=== PATIENT | male | born 1975 | race Caucasian/White ===

== ENCOUNTER 2022-02-24 13:33 | Outpatient (REF) | payer MEDICARE, MEDICAID, SELFPAY ==
--- NOTE | ~2022-02-24 | XR_ITS ---
EXAMINATION: X-RAY THORACIC SPINE X-RAY LUMBAR SPINE CLINICAL INFORMATION: Pain. COMPARISON: None TECHNIQUE: 3 views of the thoracic spine. 4 views of the lumbar spine. FINDINGS: Thoracic spine: No acute compression deformity or subluxation. Mild to moderate multilevel disc height loss and anterior marginal osteophytes are noted. The included portions of the cardiomediastinum, lungs and ribs are within normal limits. Lumbar spine: No acute compression deformity or malalignment. Mild to moderate disc height loss and facet arthropathy at L4-L5 and L5-S1 leading to some degree of neural foraminal encroachment and central canal narrowing. SI joints are symmetric. No significant paraspinal soft tissue finding. XR/XR thoracic spine 2V IMPRESSION: 1. No acute compression deformity or subluxation of the thoracic or lumbar spine. 2. Mild to moderate thoracic spondylosis. 3. Mild to moderate lumbar spondylosis at L4-L5 and L5-S1.
--- NOTE | ~2022-02-24 | XR_ITS ---
EXAMINATION: X-RAY THORACIC SPINE X-RAY LUMBAR SPINE CLINICAL INFORMATION: Pain. COMPARISON: None TECHNIQUE: 3 views of the thoracic spine. 4 views of the lumbar spine. FINDINGS: Thoracic spine: No acute compression deformity or subluxation. Mild to moderate multilevel disc height loss and anterior marginal osteophytes are noted. The included portions of the cardiomediastinum, lungs and ribs are within normal limits. Lumbar spine: No acute compression deformity or malalignment. Mild to moderate disc height loss and facet arthropathy at L4-L5 and L5-S1 leading to some degree of neural foraminal encroachment and central canal narrowing. SI joints are symmetric. No significant paraspinal soft tissue finding. XR/XR lumbar spine 4V min IMPRESSION: 1. No acute compression deformity or subluxation of the thoracic or lumbar spine. 2. Mild to moderate thoracic spondylosis. 3. Mild to moderate lumbar spondylosis at L4-L5 and L5-S1.
== END 2022-02-24 13:34 | disposition home or self-care (01) ==
LOC: HO.XRAY 13:33
PROVIDERS: PCP Internal Medicine; Visit Provider Internal Medicine
DX: M54.50 Low back pain, unspecified (principal)
CPT/HCPCS: 72070; 72110

== ENCOUNTER 2023-01-03 08:39 | Outpatient (REF) | payer MEDICARE, MEDICAID, SELFPAY ==
[2023-01-03 14:14] LABS: MANUAL DIFF FLAG NO
[2023-01-03 14:22] LABS: Basophils Absolute Auto 0.1 X10*3/uL (0.0-0.2); Basophils Percent Auto 0.6 % (0-2); Eosinophils Absolute Auto 0.1 X10*3/uL (0.0-0.4); Eosinophils Percent Auto 0.9 % (0-4); Hematocrit 49.8 % (42.0-52.0); Hemoglobin 16.6 g/dl (14.0-18.0); Imm Gran Abs Auto 0.06 X10*3/uL (0.00-0.03); Imm Gran Pct Auto 0.6 % (0.0-0.4); Lymphocytes Absolute Auto 2.7 X10*3/uL (1.2-4.9); Lymphocytes Percent Auto 26.8 % (20-40); Mean Corpuscular HGB Conc 33.3 g/dl (31.0-36.0); Mean Corpuscular Hemoglobin 30.5 pg (27.0-33.0); Mean Corpuscular Volume 91.5 fL (80.0-98.0); Mean Platelet Volume 10.7 fL (9.4-12.4); Monocytes Absolute Auto 0.6 X10*3/uL (0.1-1.2); Monocytes Percent Auto 6.2 % (2-11); Neutrophils Absolute Auto 6.4 x10*3/uL (2.0-8.3); Neutrophils Percent Auto 64.9 % (45-73); Platelet Count 326 X10*3/uL (160-400); Red Blood Count 5.44 X10*6/uL (4.60-5.80); Red Cell Distribution Width 12.7 % (11.0-16.0); White Blood Count 9.9 X10*3/uL (4.8-10.8)
[2023-01-03 14:56] LABS: Alanine Aminotransferase 27 U/L (0-40); Albumin Level 4.4 g/dL (3.5-5.0); Alkaline Phosphatase 65 U/L (39-117); Anion Gap 12 (12-20); Aspartate Amino Transferase 24 U/L (5-37); Bilirubin Direct 0.2 mg/dL (0.0-0.5); Bilirubin Total 0.3 mg/dL (0.0-1.0); Blood Urea Nitrogen 14 mg/dL (9-16); Calcium 9.7 mg/dL (8.4-10.2); Carbon Dioxide 23 mmol/L (22-29); Chloride 107 mmol/L (96-108); Cholesterol 213 mg/dL (<200); Estimated Glomerular Filt Rate > 60; Glucose Fasting 89 mg/dL (60-99); HDL Cholesterol 26 mg/dL (>40); Potassium 3.9 mmol/L (3.3-5.1); Sodium 138 mmol/L (135-145); Total Protein 7.5 g/dL (6.5-8.0); Triglycerides 422 mg/dL (<150)
== END 2023-01-03 08:40 | disposition home or self-care (01) ==
LOC: CF 08:39
PROVIDERS: Visit Provider Internal Medicine
DX: E78.1 Pure hyperglyceridemia (principal); R79.89 Other specified abnormal findings of blood chemistry
CPT/HCPCS: 36415; 80048; 80061; 80076; 85025

== ENCOUNTER 2023-11-18 14:34 | Outpatient (REF) | payer MEDICARE, MEDICAID, SELFPAY ==
[2023-11-18 18:04] LABS: MANUAL DIFF FLAG NO
[2023-11-18 18:15] LABS: Basophils Absolute Auto 0.1 X10*3/uL (0.0-0.2); Basophils Percent Auto 0.6 % (0-2); Eosinophils Absolute Auto 0.1 X10*3/uL (0.0-0.4); Hematocrit 49.9 % (42.0-52.0); Hemoglobin 16.9 g/dl (14.0-18.0); Imm Gran Abs Auto 0.06 X10*3/uL (0.00-0.03); Imm Gran Pct Auto 0.6 % (0.0-0.4); Lymphocytes Absolute Auto 3.5 X10*3/uL (1.2-4.9); Lymphocytes Percent Auto 34.7 % (20-40); Mean Corpuscular HGB Conc 33.9 g/dl (31.0-36.0); Mean Corpuscular Hemoglobin 30.8 pg (27.0-33.0); Mean Corpuscular Volume 90.9 fL (80.0-98.0); Mean Platelet Volume 10.8 fL (9.4-12.4); Monocytes Absolute Auto 0.6 X10*3/uL (0.1-1.2); Monocytes Percent Auto 5.6 % (2-11); Neutrophils Absolute Auto 5.8 x10*3/uL (2.0-8.3); Neutrophils Percent Auto 57.5 % (45-73); Platelet Count 281 X10*3/uL (160-400); Red Blood Count 5.49 X10*6/uL (4.60-5.80); Red Cell Distribution Width 12.8 % (11.0-16.0); White Blood Count 10.1 X10*3/uL (4.8-10.8)
[2023-11-18 18:35] LABS: Alanine Aminotransferase 26 U/L (0-40); Albumin Level 4.4 g/dL (3.5-5.0); Alkaline Phosphatase 55 U/L (39-117); Anion Gap 13 (12-20); Aspartate Amino Transferase 14 U/L (5-37); Bilirubin Total 0.5 mg/dL (0.0-1.0); Blood Urea Nitrogen 13 mg/dL (9-16); Calcium 9.9 mg/dL (8.4-10.2); Carbon Dioxide 27 mmol/L (22-29); Chloride 106 mmol/L (96-108); Cholesterol 218 mg/dL (<200); Estimated Glomerular Filt Rate > 60; Glucose Random 92 mg/dL (60-115); HDL Cholesterol 34 mg/dL (>40); LDL Cholesterol Calculated 150 mg/dL (<100); Potassium 3.9 mmol/L (3.3-5.1); Sodium 142 mmol/L (135-145); Total Protein 7.1 g/dL (6.5-8.0); Triglycerides 170 mg/dL (<150)
[2023-11-18 18:49] LABS: TSH reflex Free T4 3.69 uIU/mL (0.32-4.0); Vitamin D 25-OH Total 21.9 ng/mL (>30)
== END 2023-11-18 14:35 | disposition home or self-care (01) ==
LOC: HO.CHCLDS 14:34
PROVIDERS: Visit Provider Internal Medicine
DX: Z00.00 Encounter for general adult medical examination without abnormal findings (principal); E78.1 Pure hyperglyceridemia; E55.9 Vitamin D deficiency, unspecified
CPT/HCPCS: 36415; 80053; 80061; 82306; 84443; 85025

== ENCOUNTER 2024-07-22 12:57 | Emergency (ER) | payer MEDICARE, MEDICAID, SELFPAY ==
--- NOTE | ~2024-07-22 | XR_ITS ---
CLINICAL HISTORY: palpitations Chest Radiographs, 2 views Comparison: None Findings: No cardiomegaly. Normal mediastinal contours. No pneumothorax. Peripheral opacity in the right mid and lower lung zones on the PA view is attributed to artifact. No pleural effusion. Normal upper abdomen. No acute fracture. Impression: No acute pathology. This document has been electronically signed by: Nella Conway MD on 07/22/2024 14:21:48
[2024-07-22 13:04] VITALS: BP 127/76; BP 127/82; PULSE 102; PULSE 99; RESP 14; TEMP 36.6; O2SAT 95; O2SAT 97; BMI 34.4
--- NOTE | 2024-07-22 13:20 | ECG_ITS ---
Test Reason : palpitations Blood Pressure : */* mmHG Vent. Rate : 93 BPM Atrial Rate : 93 BPM P-R Int : 124 ms QRS Dur : 80 ms QT Int : 364 ms P-R-T Axes : 56 38 27 degrees QTcB Int : 452 ms Normal sinus rhythm Nonspecific T wave abnormality Abnormal ECG No previous ECGs available Referred By: Jessica Landin Electronically Signed By: Donny Beckham
--- NOTE | 2024-07-22 13:24 | ED.ARRPALP ---
HPI - Arrhythmia/Palpitations General Chief Complaint: Arrhythmia/Palpitations Stated Complaint: PALPITATIONS,FROM [facility] PER EMS Time Seen by Provider: 07/22/24 13:01 Source: patient and EMS Mode of arrival: EMS Limitations: no limitations History of Present Illness ED Provider: Jessica Landin APRN HPI narrative: 48 yo Year old male [facility] here with complaints of left-sided chest pain described as pressure for 1 hour. Patient reports this occurred while he was at rest. Nonexertional. There is no associated vomiting, diaphoresis, shortness of breath, headache, dizziness. Patient denies any leg swelling or leg pain. No recent travel. No sick contacts. No recent hospitalizations. No history of DVT or PE. Related Data Allergies Allergy/AdvReac Type Severity Reaction Status Date / Time clozapine [From CLOZARIL] Allergy Unknown UNK Verified 07/22/24 13:07 Review of Systems Review of Systems: Yes all other systems are reviewed and are negative Constitutional: Constitutional: Reports no additional constitutional complaints, Denies body ache(s), Denies chills, Denies fever(s), Denies headache(s) and Denies weakness Eyes: Eyes: Reports no additional eye complaints and Denies change in vision ENT: Reports system reviewed and no additional complaints, except as documented, Denies dizziness, Denies headache(s), Denies nasal congestion, Denies nasal discharge and Denies neck pain Cardiovascular: Cardiovascular: Reports no additional cardiovascular complaints, Reports chest pain, Denies leg edema and Denies dyspnea Respiratory: Respiratory: Reports no additional respiratory complaints, Denies cough and Denies dyspnea Gastrointestinal: Gastrointestinal: Reports no additional gastrointestinal complaints, Denies abdominal pain, Denies diarrhea, Denies nausea and Denies vomiting Genitourinary: Genitourinary: Denies urinary incontinence Musculoskeletal: Musculoskeletal: Reports no additional musculoskeletal complaints, Denies back pain, Denies arthralgias, Denies joint swelling, Denies neck pain, Denies numbness and Denies tingling Integumentary/Breasts: Skin/Breast: Reports system reviewed and no additional complaints, except as docu and Denies rash Neurologic: Reports system reviewed and no additional complaints, except as documented, Denies Abnormal speech present, Denies dizziness, Denies headache(s), Denies numbness, Denies tingling and Denies weakness PMFSH Past Medical History Attestation statement: The following information was validated with the patient. Source: old records reviewed and nursing notes reviewed Social History Social History Smoked in Last 30 Days: Yes Advance Directives: No Advance Directives Information Provided: Yes Do you have a plan to hurt others: No Plan Physical Exam Vital Signs: Vital Signs: Last Vital Signs Temp 97.9 F 07/22/24 13:04 Pulse 90 07/22/24 16:00 Resp 11 L 07/22/24 16:00 BP 112/76 07/22/24 16:00 Pulse Ox 96 07/22/24 16:00 O2 Del Method Room Air 07/22/24 16:00 BMI result Body Mass Index 34.4 Const: General: cooperative, healthy appearing, comfortable and no acute distress Orientation/consciousness: patient oriented x3 Limitations: no limitations HEENT: Head: Yes normal to inspection Ears: hearing grossly normal bilaterally General nose exam: Normal external nose present Face and sinus: Yes normal facial exam Mouth: Normal oral and palatal mucosa present Throat: Yes posterior oropharynx normal Eyes: General: appearance normal, both eyes and all related structures Pupils: Equal, round and reactive pupils present Neck: Neck: Yes normal visual inspection Chest: Chest palpation & inspection: normal inspection of the chest Resp: Effort & Inspection: normal respiratory effort Auscultation: clear to auscultation bilaterally Cardio: Rate: regular rate Rhythm: regular rhythm Peripheral pulses: Peripheral pulses 2+ throughout GI: Inspection: Yes normal to inspection Palpation (GI): Soft to palpation and nontender Auscultation: normal bowel sounds Back/Spine/Pelvis: Thoracic/Lumbar Spine: thoracic and lumbar spine normal to inspection Skin: General skin exam: no rashes or lesions noted Neuro: General: patient oriented x3, no focal motor deficits and normal sensation to monofilament Cranial nerves: Yes Equal, round and reactive pupils present Cognition (Neuro): normal cognition Speech: No Abnormal speech present Gait exam (Neuro): Normal gait present Motor exam (neuro): 5/5 motor strength present throughout Extrem: General: Yes normal to inspection, Yes no pedal edema and Yes no calf tenderness Course Course Course Narrative: labs are unremarkable. EKG is nonischemic. Chest x-ray shows no acute finding. Patient will be discharged home with recommendations to follow up with outpatient providers. Reviewed worrisome signs and symptoms of when to return to the emergency room. Comfortable plan for discharge home. Medications Administered Discontinued Medications Generic Name Dose Route Start Last Admin Trade Name Jose Luis PRN Reason Stop Dose Admin Acetaminophen 975 mg 07/22/24 13:34 07/22/24 13:51 Acetaminophen 325 Mg Tablet PO 07/22/24 13:35 975 mg ONCE ONE Administration Medical Decision Making Medical Decision Making MDM Narrative: 48 yo Year old male from a [facility] here with complaints of left-sided chest pain described as pressure for 1 hour. Patient reports this occurred while he was at rest. Nonexertional. There is no associated vomiting, diaphoresis, shortness of breath, headache, dizziness. Patient denies any leg swelling or leg pain. No recent travel. No sick contacts. No recent hospitalizations. No history of DVT or PE. exam is benign vitals are stable will obtain labs, EKG, chest x-ray Differential Diagnosis Differential Diagnoses: The differential diagnosis associated with the presentation includes ACS- less likely with nonischemic EKG and 2- troponins with a history of present illness is atypical for ACS less likely PE with perc 0 less likely dissection with gradual onset of symptoms Admission/Observation Consideration of admission/observation: Escalation of care including admission/observation considered See course of care Lab Data MDM Lab Attestation statement: I reviewed the patient's lab results. 07/22/24 14:16 07/22/24 14:16 Labs: Lab Results 07/22/24 07/22/24 Range/Units 14:16 16:38 WBC 13.2 H (4.8-10.8) X10*3/uL RBC 4.99 (4.60-5.80) X10*6/uL Hgb 15.6 (14.0-18.0) g/dl Hct 43.4 (42.0-52.0) % MCV 87.0 (80.0-98.0) fL MCH 31.3 (27.0-33.0) pg MCHC 35.9 (31.0-36.0) g/dl RDW 12.9 (11.0-16.0) % Plt Count 360 D (160-400) X10*3/uL MPV 9.6 (9.4-12.4) fL Immature Gran % (Auto) 0.6 H (0.0-0.4) % Neut % (Auto) 65.9 (45-73) % Lymph % (Auto) 26.8 (20-40) % [place] % (Auto) 5.6 (2-11) % Eos % (Auto) 0.6 (0-4) % Baso % (Auto) 0.5 (0-2) % Lymph # (Auto) 3.5 (1.2-4.9) X10*3/uL [place] # (Auto) 0.7 (0.1-1.2) X10*3/uL Eos # (Auto) 0.1 (0.0-0.4) X10*3/uL Baso # (Auto) 0.1 (0.0-0.2) X10*3/uL Abs Immat Gran (auto) 0.08 H (0.00-0.03) X10*3/uL Absolute Neuts (auto) 8.7 H (2.0-8.3) x10*3/uL Absolute Nucleated RBC 0.000 (0.0-0.012) X10*3/uL Nucleated RBC % (auto) 0.0 (0.0-0.2) /100WBC Sodium 138 (135-145) mmol/L Potassium 4.0 (3.3-5.1) mmol/L Chloride 106 (96-108) mmol/L Carbon Dioxide 25 (22-29) mmol/L Anion Gap 11 L (12-20) BUN 18 H (9-16) mg/dL Creatinine 0.81 (0.5-1.4) mg/dL Estim Creat Clear Calc 137.6 Estimated GFR > 60 Random Glucose 93 (60-115) mg/dL Calcium 9.4 (8.4-10.2) mg/dL Magnesium 2.1 (1.6-2.6) mg/dL Total Bilirubin 0.5 (0.0-1.0) mg/dL Direct Bilirubin 0.2 (0.0-0.5) mg/dL AST 23 (5-37) U/L ALT 31 (0-40) U/L Alkaline Phosphatase 63 (39-117) U/L Troponin I High Sens < 2.7 < 2.7 (<3.5-35.0) ng/L Total Protein 7.2 (6.5-8.0) g/dL Albumin 4.4 (3.5-5.0) g/dL TSH 4.18 H (0.32-4.0) uIU/mL Free T4 0.97 (0.71-1.85) ng/dL Independent Interpretation I performed an independent interpretation of an: EKG and Plain X-Ray Interpretation: I independently reviewed the x-ray and agree with the radiology report I independently reviewed the EKG which shows normal sinus rhythm with a rate of 93, normal PA, normal QRS normal QT Radiology Impression Discussion of test interpretation with radiology: I have reviewed the radiologist's reading. Radiologist Impression: [address] [address] XRay Report Signed Patient: Paulino Hernandez MR#: [id number] : 1975 Acct:[id number] Age/Sex: 48 / M ADM Date: 07/22/24 Loc: .ED Attending Dr: Ordering Physician: Jessica Landin NP Date of Service: 07/22/24 Procedure(s): XR chest 2V Accession Number(s): [id number] cc: Nata Ferrer MD; Jessica Landin NP~ CLINICAL HISTORY: palpitations Chest Radiographs, 2 views Comparison: None Findings: No cardiomegaly. Normal mediastinal contours. No pneumothorax. Peripheral opacity in the right mid and lower lung zones on the PA view is attributed to artifact. No pleural effusion. Normal upper abdomen. No acute fracture. Impression: No acute pathology. Independent Historian Clinical information obtained from an independent historian. History obtained from or confirmed by: EMS Discharge Plan Discharge Clinical Impression: Chest pain Patient Disposition: Home, Self-Care Instructions: Chest Pain (ED) Additional Instructions: The patient can have Motrin or Tylenol for pain as needed He should follow up outpatient with his providers Referrals: Nata Ferrer MD [Primary Care Provider] - 1 week Print Language: Slovak
--- OUTSIDE RECORDS SUMMARY | 2024-07-22 13:43 | XMS_ITS | Encounter Summary ---
Author Organization [employer] Address [address] [address] [place] [address] Care Team Providers Care Entry Level Finance Name Role Phone Nata Ferrer MD Primary Care Provider [phone] Encounter Details Date Type Department Care Team (Late st Contact Info) Description 07/21/2022 Orders Only [facility] MED & PEDS [address] [place], [place] [phone] Nata Ferrer MD [address] [place] [address] Other chronic pain Social History Tobacco Use Types Packs/Day Years Used Date Smoking Tobacco: Every Day Cigarettes Smokeless Tobacco: Never Sex and Gender Information Value Date Recorded Sex Assigned at Male 02/15/2022 10:36 AM EDT Legal Sex Male 10:36 AM EDT Gender Identity Male 02/15/2022 10:36 AM EDT Sexual Orientation Straight 02/15/2022 10 :36 AM EDT documented as of this encounter Plan of Treatment Not on file documented as of this encounter Procedures Procedure Name Priority Date/Time Associated Diagnosis Comments BASIC METABOLIC PANEL, FASTING Routine 01/03/2023 8:42 AM EDT Other chronic pain documented in this encounter Results * Basic Metabolic Panel, Fasting (01/03/2023 8:42 AM EDT) Sodium 138 135 - 145 mmol/L [facility] Potassium 3.9 3.3 - 5.1 mmol/L [facility] Chloride 107 96 - 108 mmol/L [facility] Carbon Dioxide 23 22 - 29 mmol/L [facility] Anion Gap 12 12 - 20 [facility] Urea Nitrogen (BUN) 14 9 - 16 mg/dL [facility] Creatinine, Serum 0.88 0.5 - 1.4 mg/dL [facility] Estimated Glomerular Filt Rate >60 [facility] Comment:NOTE: For -Am erican individuals, multiply the result by 1.210.Chronic Kidney Disease: Estimated GFR < 60 mL/min/[id number] Kidney Disease: Estimated GFR < 15 mL/min/1.73m2 Glucose Fasting 89 60 - 99 mg/dL [facility] Calcium 9.7 8.4 - 10.2 mg/dL [facility] 01/03/2023 8:42 AM EDT 01/03/2023 2:10 PM EDT Nata Ferrer MD LAB BLOOD ORDERABLES Final Result Performing Organization Address City/State/[facility] Co de Phone Number [facility] [address] [place] [address] [phone] documented in this encounter Visit Diagnoses Diagnosis Other chronic pain documented in this encounter Care Teams Entry Level Finance Relationship Specialty Start Date End Date Nata Ferrer MD [address] [place] [address] PCP - General Internal Medicine 02/07/19 documented as of this encounter
--- OUTSIDE RECORDS SUMMARY | 2024-07-22 13:43 | XMS_ITS | Encounter Summary ---
Author Organization [employer] [facility] Address [address] [facility] 7 [place] [address] Care Team Providers Care Transmission And Coordination Engineer Name Role Phone Nata Ferrer MD Primary Care Provider [phone] Reason for Visit * Reason Comments Med Refill Encounter Details Date Type Department Care Team ([facility] st Contact Info) Description 12/16/2022 Refill [facility] PED[facility] [address] [place] [address] Nata Ferrer MD [address] [place] [address] Other chronic pain; Rib pain on right side Social History Tobacco Use Types Packs/Day Years Used Date Smoking Tobacco: Every Day Cigarettes Smokeless Tobacco: Never Depression Answer Date Recorded Patient Health Questionnaire-9 Score 0 11/04/2022 Depression Answer Date Recorded Patient Health Questionnaire-2 Score 0 11/04/2022 Sex and Gender Information Value Date Recorded Sex Assigned at Male 02/15/2022 10:36 AM EDT Legal Sex Male 10:36 AM EDT Gender Identity Male 02/15/2022 10:36 AM EDT Sexual Orientation Straight 02/15/2022 10 :36 AM EDT documented as of this encounter Plan of Treatment Not on file documented as of this encounter Visit Diagnoses Diagnosis Other chronic pain Rib pain on right side documented in this encounter Additional Health Concerns Assessment Noted Time PHQ-9 Depression Total Score: 0 11/05/19 23 2:09 PM EDT documented as of this encounter Care Teams Transmission And Coordination Engineer Relationship Specialty Start Date End Date Nata Ferrer MD [address] [place] [address] PCP - General Internal Medicine 02/07/19 documented as of this encounter
--- OUTSIDE RECORDS SUMMARY | 2024-07-22 13:43 | XMS_ITS | Encounter Summary ---
Author Organization [employer] Address [address] [facility] [address] [place] [address] Care Team Providers Care Assistant Auditor Name Role Phone Nata Ferrer MD Primary Care Provider [phone] Encounter Details Date Type Department Care Team (Late st Contact Info) Description 11/21/2023 Orders Only [facility]ED[facility] [address] [place] [address] Nata Ferrer MD [address] [place] [address] Vitamin D deficiency (Primary Dx) Social History Tobacco Use Types Packs/Day Years Used Date Smoking Tobacco: Every Day Cigarettes Smokeless Tobacco: Never Depression Answer Date Recorded Patient Health Questionnaire-9 Score 7 11/18/2023 Patient Health Questionnaire-9 Score 7 11/18/2023 Last PHQ-9: Questionnaire Data Not on file 0 11/18/2023 Housing Stability Answer Date Recorded What is your housing situation today? I have mare pinon 11/18/[address] you li ve. Do you have problems with any of the following? None of the above 11/18/2023 Food Insecurity Answer Date Recorded Within the past 12 months, y ou worried that your food would run out before you got money to buy more: Never True 2023 Within the past 12 months,th e food you bought just didn't last and you didn't have enough money to get more: Sometimes True 11/18/2023 Transportation Answer Date Recorded In the past 12 months, has l ack of transportation kept you from medical appts, meetings, work or from getting things needed for daily living? No 02/06/2023 Utilities Answer Date Recorded In the past 12 months, has t he electric, gas, oil or water company threatened to shut off services in your home? No 11/18/2023 Depression Answer Date Recorded Patient Health Questionnaire-2 Score 3 11/18/2023 Sex and Gender Information Value Date Recorded Sex Assigned at Male 02/15/2022 10:36 AM EDT Legal Sex Male 10:36 AM EDT Gender Identity Male 02/15/2022 10:36 AM EDT Sexual Orientation Straight 02/15/2022 10 :36 AM EDT documented as of this encounter Plan of Treatment Not on file documented as of this encounter Visit Diagnoses Diagnosis Vitamin D deficiency- Primary documented in this encounter Additional Health Concerns Assessment Noted Time PHQ-9 Depression Total Score: 7 11/18/19 24 2:11 PM EDT documented as of this encounter Care Teams Assistant Auditor Relationship Specialty Start Date End Date Nata Ferrer MD [address] [place] [id number] PCP - General Internal Medicine 02/07/19 documented as of this encounter
--- OUTSIDE RECORDS SUMMARY | 2024-07-22 13:43 | XMS_ITS | Clinical Summary ---
Author Organization [facility] ity Address [address] [place] [address] Care Team Providers Care Chrome Cleaner Name Role Phone Unavailable Primary Care Provider Unavailabl e Social History Tobacco Use Types Packs/Day Years Used Date Smoking Tobacco: Never Assessed Sex and Gender Information Value Date Recorded Sex Assigned at Not on file Legal Sex Male 4:02 PM EST Gender Identity Not on file Sexual Orientation Not on file Plan of Treatment Health Maintenance Due Date Last Done Comments DTaP,Tdap,and Td Vaccines (1 - Tdap) 10/11/1994 Hepatitis B Vaccines (1 of 3 - 19+ 3-dose series) 10/11/1994 Cholesterol Screening (Lipid Panel) 03/17/2022 Colorectal Cancer Screening: Colonoscopy 03/17/2022 Depression Screening 03/17/2022 HIV Screening 03/17/2022 Hepatitis C Screening 03/17/2022 Social Influencers of Health Screening 03/17/2022 COVID-19 Vaccine (2023-2 5 season) 2023 Influenza Vaccine (#1) 2023 HIB Vaccines Aged Out No longer eligi ble based on patient's age to complete this topic HPV Vaccines Aged Out No longer eligi ble based on patient's age to complete this topic Hepatitis A Vaccines Aged Out No long er eligible based on patient's age to complete this topic IPV Vaccines Aged Out No longer eligi ble based on patient's age to complete this topic MMR Vaccines Aged Out No longer eligi ble based on patient's age to complete this topic Meningococcal ACWY Vaccine Aged Out N o longer eligible based on patient's age to complete this topic Meningococcal B Vacine Aged Out No lo nger eligible based on patient's age to complete this topic Pneumococcal Vaccine: Pediat rics (0 to 5 Years) and At-Risk Patients (6 to 64 Years) Aged Out No longer eligible b ased on patient's age to complete this topic RSV Immunization Patients Un adilson 20 months Aged Out No longer eligible b ased on patient's age to complete this topic Varicella Vaccines Aged Out No longer eligible based on patient's age to complete this topic Advance Directives Documents on File Type Date Recorded Patient Development Analyst Expl anation Health Care Decision (hx) 11/29/2019 AD KENNEY DIRECTIVE Health Care Decision (hx) 11/19/2019 AD KENNEY DIRECTIVE
--- OUTSIDE RECORDS SUMMARY | 2024-07-22 13:43 | XMS_ITS | Encounter Summary ---
Author Organization [employer] Address [address] [address] [place] [address] Care Team Providers Care President [place] [employer] Name Role Phone Nata Ferrer MD Primary Care Provider [phone] Reason for Visit * Reason Onset Date Comments Nurse Triage 07/11/2024 Encounter Details Date Type Department Care Team (Late st Contact Info) Description 07/11/[address] [facility] MEDICINE [address] [place] [address] Nata Ferrer MD [address] [place] [address] Nurse Triage Social History Tobacco Use Types Packs/Day Years Used Date Smoking Tobacco: Every Day Cigarettes Passive Smoke Exposure: Current Smokeless Tobacco: Never Depression Answer Date Recorded [...] AM EDT documented as of this encounter Miscellaneous Notes * Telephone Encounter - Nichole Harry RN - 07/11/2024 9:58 AM EDT Triage call Pt reports living in a fci. Pt has been having body pain, especially back and legs. Dizziness has caused Pt to fall at times no injury to body or head. Pt also reports fever at times. Pt reports this has been happening for last 2-3 months. Pt is requesting to see provider at [facility].Pt is taking atorvastatin daily. ASK apt today at 220pm in [facility]. Pt agrees with disposition and insurance is verified as active prior to scheduling. Protocol Used: Muscle Aches and Body Pain (Adult) Protocol-Based Disposition: See in Office or Video Visit within 3 Days Video visit not offered Positive Triage Questions: * Moderate pain (e.g., interferes with normal activities) and present > 3 days * Mild or Moderate muscle aches or pain and taking a statin medicine (a lipid or cholesterol lowering drug) * Patient wants to be seen * All higher-acuity triage questions were negative Care Advice Discussed: * Reasons To Call Back - Fever occurs - Pain lasts longer than 7 days - You become worse * Telephone Encounter - Anish Lamb - 07/11/2024 9:33 AM EDT Symptoms: Body Aches, Weakness, Loss of Appetite, Diarrhea Outcome: Schedule an urgent appointment (within 1 hour) or talk to a nurse or provider soon Reason: Getting worse The caller accepted this outcome. Contact [phone] documented in this encounter Plan of Treatment Not on file documented as of this encounter Visit Diagnoses Not on filedocumented in this encounter Additional Health Concerns Assessment Noted Time PHQ-9 Depression Total Score: 7 11/18/19 24 2:11 PM EDT documented as of this encounter Care Teams President [place] Relationship Specialty Start Date End Date Nata Ferrer MD [address] [place] [phone] PCP - General Internal Medicine 02/07/19 documented as of this encounter
--- OUTSIDE RECORDS SUMMARY | 2024-07-22 13:43 | XMS_ITS | Encounter Summary ---
Author Organization [employer] Address 75 [facility] 7t [place] [address] Care Team Providers Care Car Pusher Name Role Phone Nata Ferrer MD Primary Care Provider [phone]- [phone] Encounter Details Date Type Department Care Team (Latest Contact Info) Description 01/04/2023 Orders Only [facility] MED & PEDS [address] [place] [address] Nata Ferrer MD [address] [place] [address] Hypertriglyceridemia (Primary Dx) Social History Tobacco Use Types [...] as of this encounter Visit Diagnoses Diagnosis Hypertriglyceridemia- Primary Pure hyperglyceridemia documented in this encounter Additional Health Concerns Assessment Noted Time PHQ-9 Depression Total Score: 0 11/05/19 23 2:09 PM EDT documented as of this encounter Care Teams Car Pusher Relationship Specialty Start Date End Date Nata Ferrer MD [address] [place], [place] [phone] PCP - General Internal Medicine 02/07/19 documented as of this encounter
--- OUTSIDE RECORDS SUMMARY | 2024-07-22 13:43 | XMS_ITS | Encounter Summary ---
Author Organization [employer] Address 75 [facility] 7 [place] [address] Care Team Providers Care Boiler Tube Blower Name Role Phone Nata Ferrer MD Primary Care Provider [phone]- [phone] Reason for Visit * Reason Comments Med Refill celecoxib (CeleBREX) 200 MG capsule Encounter Details Date Type Department Care Team (Late st Contact Info) Description 09/14/2022 Refill [facility] MED & PEDS [address] [place] [address] Nata Ferrer MD 505 [place] [address] Other chronic pain Social History Tobacco Use [...] encounter Miscellaneous Notes * Telephone Encounter - Tran Russo RN - 09/24/2022 3:19 PM EDT Pt was recently seen at [facility] ED for a fall. Pt was prescribed APAP 500mg and Lidocaine patch. RN called pt for status check. Pt reports pain persist but denies worsening. States APAP and Lidocaine is somewhat effective. ED f/u appt scheduled and pt aware of appt date and time. Pt will like to know if PCP can send a refill request for APAP 500mg and Lidocaine patch to the pharmacy. Advised message will be send to PCP as requested. * Telephone Encounter - Mony Nunez - 09/14/2022 11:41 AM EDT Tc from patient requesting a med refill on medication celecoxib (CeleBREX) [address] Ferrer documented in this encounter Plan of Treatment Not on file documented as of this encounter Visit Diagnoses Diagnosis Other chronic pain documented in this encounter Care Teams Boiler Tube Blower Relationship Specialty Start Date End Date Nata Ferrer MD [address] [place] [id number] PCP - General Internal Medicine 02/07/19 documented as of this encounter
--- OUTSIDE RECORDS SUMMARY | 2024-07-22 13:43 | XMS_ITS | Encounter Summary ---
Author Organization [employer] Address 75 [facility] 7t [place] [address] Care Team Providers Care Awning Craftsperson Name Role Phone Nata Ferrer MD Primary Care Provider [phone]- [phone] Reason for Visit * Reason Onset Date Comments Medication Question 04/06/2023 Encounter Details Date Type Department Care Team ([facility] st Contact Info) Description 04/06/2023 Telephone [facility] MEDICINE [address] [place] [address] Nata Ferrer MD 505 [place] [address] Medication Question Social History Tobacco Use Types Packs/Day Years Used Date Smoking Tobacco: Every Day Cigarettes Smokeless Tobacco: Never Depression Answer Date Recorded Patient Health Questionnaire-9 Score 0 11/04/2022 Housing Stability Answer Date Recorded What is your housing situation today? I have marecarlota pinon 02/06/[address] you li ve. Do you have problems with any of the following? None of the above 02/06/2023 Food Insecurity Answer Date Recorded Within the past 12 months, y ou worried that your food would run out before you got money to buy more: Never True 02/06/2023 Within the past 12 months,th e food you bought just didn't last and you didn't have enough money to get more: Never True Transportation Answer Date Recorded In the past 12 months, has l ack of transportation kept you from medical appts, meetings, work or from getting things needed for daily living? No 02/06/2023 Utilities Answer Date Recorded In the past 12 months, has t he electric, gas, oil or water [employer] threatened to shut off services in your home? No 02/06/2023 Depression Answer Date Recorded Patient Health Questionnaire-2 Score 0 11/04/2022 Sex and Gender Information Value Date Recorded Sex Assigned at Male 02/15/2022 10:36 AM EDT Legal Sex Male 10:36 AM EDT Gender Identity Male 02/15/2022 10:36 AM EDT Sexual Orientation Straight 02/15/2022 10 :36 AM EDT documented as of this encounter Miscellaneous Notes * Telephone Encounter - Bg Calvillo - 04/06/2023 3:03 PM EST Tc from Racehl the RN at the [facility] calling to request a order for to give the patient 1000mg in theafternoon of acetaminophen (Tylenol 8 Hour) for pain documented in this encounter Plan of Treatment Not on file documented as of this encounter Visit Diagnoses Diagnosis Rib pain on right side documented in this encounter Additional Health Concerns Assessment Noted Time PHQ-9 Depression Total Score: 0 11/05/19 2:09 PM EDT documented as of this encounter Care Teams Awning Craftsperson Relationship Specialty Start Date End Date Nata Ferrer MD [address] [place] [phone] PCP - General Internal Medicine 02/07/19 documented as of this encounter
--- OUTSIDE RECORDS SUMMARY | 2024-07-22 13:43 | XMS_ITS | Encounter Summary ---
Author Organization [employer] Address [address] [facility] 7 [place] [address] Care Team Providers Care Line Installer Repairer Name Role Phone Nata Ferrer MD Primary Care Provider [phone]- [phone] Reason for Visit * Reason Onset Date Comments requesting 03/30/2022 Encounter Details Date Type Department Care Team ([facility] st Contact Info) Description 03/30/2022 Telephone [facility] MEDICINE [address] [place] [address] Nata Ferrer MD [address] [place] [address] requesting Social History Tobacco Use Types Packs/Day Years Used Date Smoking Tobacco: Never Assessed Sex and Gender Information Value Date Recorded Sex Assigned at Male 02/15/2022 10:36 AM EDT Legal Sex Male 10:36 AM EDT Gender Identity Male 02/15/2022 10:36 AM EDT Sexual Orientation Straight 02/15/2022 10 :36 AM EDT documented as of this encounter Miscellaneous Notes * Telephone Encounter - Bella Drummond RN - 03/30/2022 1:07 PM EST Please review message below and advise. Thank you. * Telephone Encounter - Angel Heller - 03/30/2022 11:39 AM EST Tc from Karen with [facility] physical therapy. States pt would like in home physical therapy due to nothave transportation Please contact Karen at [phone] documented in this encounter Plan of Treatment Not on file documented as of this encounter Visit Diagnoses Not on filedocumented in this encounter Care Teams Line Installer Repairer Relationship Specialty Start Date End Date Nata Ferrer MD [address] [place] [phone] PCP - General Internal Medicine 02/07/19 documented as of this encounter
--- OUTSIDE RECORDS SUMMARY | 2024-07-22 13:43 | XMS_ITS | Encounter Summary ---
Author Organization [facility] Address [address] [facility] 7 [place] [address] Care Team Providers Care Auto Glass Worker Name Role Phone Nata Ferrer MD Primary Care Provider [phone]- [phone] Reason for Visit * Reason Comments Med Refill Encounter Details Date Type Department Care Team ([facility] st Contact Info) Description 11/16/2022 Refill [facility] MED & PEDS [address] [place] [address] Nata Ferrer MD 505 [place] [address] Rib pain on right side Social History [...] documented as of this encounter Care Teams Auto Glass Worker Relationship Specialty Start Date End Date Nata Ferrer MD 505 [place] [address] PCP - General Internal Medicine 02/07/19 documented as of this encounter
--- OUTSIDE RECORDS SUMMARY | 2024-07-22 13:43 | XMS_ITS | Encounter Summary ---
Author Organization [employer] Address 75 [facility] 7t [place] [address] Care Team Providers Care Live Hanger Name Role Phone Nata Ferrer MD Primary Care Provider [phone] Reason for Visit * Reason Comments Med Refill Encounter Details Date Type Department Care Team ([facility] Contact Info) Description 06/21/2023 Refill [facility] MED & PEDS [address] [place] [address] Nata Ferrer MD 505 [place] [address] Muscle spasm; Other chronic pain Social History Tobacco Use Types Packs/Day Years Used Date Smoking Tobacco: Every Day Cigarettes Smokeless Tobacco: Never Depression Answer Date Recorded Patient Health Questionnaire-9 Score 0 11/04/2022 Housing Stability Answer Date Recorded What is your housing situation today? I have mare pinon 02/06/[address] you [...] as of this encounter Visit Diagnoses Diagnosis Muscle spasm Spasm of muscle Other chronic pain documented in this encounter Additional Health Concerns Assessment Noted Time PHQ-9 Depression Total Score: 0 11/05/19 2:09 PM EDT documented as of this encounter Care Teams Live Hanger Relationship Specialty Start Date End Date Nata Ferrer MD [address] [place] [phone] PCP - General Internal Medicine 02/07/19 documented as of this encounter
--- OUTSIDE RECORDS SUMMARY | 2024-07-22 13:43 | XMS_ITS | Encounter Summary ---
Author Organization [employer] Address 75 [facility] 7t [place] [address] Care Team Providers Care Wellness Spa Manager Name Role Phone Nata Ferrer MD Primary Care Provider [phone]- [phone] Reason for Visit * Reason Onset Date Comments Same day care 06/15/23 06/15/2023 Encounter Details Date Type Department Care Team ([facility] st Contact Info) Description 06/15/2023 Telephone [facility] MEDICINE [address] [place] [address] Nata Ferrer MD 505 [place], [place] [phone] Same day care 06/15/23 Social History Tobacco Use Types Packs/Day Years [...] encounter Miscellaneous Notes * Telephone Encounter - Edilberto Woodard - 06/15/2023 1:52 PM EST Tc from pt called in to cancel today's same day care visit 06/15/23. documented in this encounter Plan of Treatment Not on file documented as of this encounter Visit Diagnoses Not on filedocumented in this encounter Additional Health Concerns Assessment Noted Time PHQ-9 Depression Total Score: 0 11/05/19 2:09 PM EDT documented as of this encounter Care Teams Wellness Spa Manager Relationship Specialty Start Date End Date Nata Ferrer MD [address] [place] [id number] PCP - General Internal Medicine 02/07/19 documented as of this encounter
--- OUTSIDE RECORDS SUMMARY | 2024-07-22 13:43 | XMS_ITS | Encounter Summary ---
Author Organization [employer] Address [address] 7[address] [place] [address] Care Team Providers Care Security Systems Integrator Name Role Phone Nata Ferrer MD Primary Care Provider [phone] Encounter Details Date Type Department Care Team ([facility] st Contact Info) Description 04/12/2023 Orders Only [facility] MED & PEDS [address] [place] [address] Nata Ferrer MD [address] [place] [address] Other chronic pain Social History Tobacco Use [...] documented as of this encounter Care Teams Security Systems Integrator Relationship Specialty Start Date End Date Nata Ferrer MD [address] [place] [phone] PCP - General Internal Medicine 02/07/19 documented as of this encounter
--- OUTSIDE RECORDS SUMMARY | 2024-07-22 13:43 | XMS_ITS | Clinical Summary ---
Author Organization [employer] Address [address] [facility] [address] 7t [place] [address] Care Team Providers Care Health Tech Name Role Phone Nata Ferrer MD Primary Care Provider [phone]- [phone] Allergies No known active allergies Medications clonazePAM (KlonoPIN) 0.5 MG tablet take 1 tablet by oral route 3 times daily Active gabapentin (Neurontin) 800 MG tablet Take 1 tablet by mouth every 8 (eight) hours. Active hydrOXYzine pamoate (Vistaril) 50 MG capsule 04/24/19 23 Active LORazepam (Ativan) 1 MG tablet TAKE 1 TABLET BY MOUTH 3 TIMES A DAY NEEDED ..AT LEAST 6 HRS APART.MAX 3 TABS DAILY 04/13/20 22 Active OLANZapine (ZyPREXA) 10 MG tablet Take 1 tablet by mouth every 8 (eight) hours. Active paliperidone (Invega) 9 MG 24 hr tablet 04/27/19 23 Active Acetaminophen Extra Strength 500 MG tabletIndicati ons:Other chronic pain TAKE 1 TABLET BY MOUTH EVERY 6 HOURS NEEDED FOR MILD PAIN FOR UP TO 23 DAYS. 90 tablet 10/22/19 23 Active lidocaine (Lidoderm) 5 % patchIndicatio ns:Rib pain on right side Apply 1 patch topically in the morning. Remove & discard patch within 12 hours or as directed by . 30 patch 1 11/05/19 23 Active lidocaine (Lidoderm) 5 % patchIndicatio ns:Other chronic pain Apply 1 patch topically in the morning. Remove & discard patch within 12 hours or as directed by . 30 patch 1 04/12/20 23 Active cholecalcifero l (Vitamin D-3) 50 MCG (2000 UT) capsuleIndicat ions:Vitamin D deficiency Take 1 capsule (50 mcg) by mouth Once per day. 30 capsule 11 11/21/19 24 Active atorvastatin (Lipitor) 20 MG tabletIndicati ons:Vitamin D deficiency Take 1 tablet (20 mg) by mouth Once per day. 30 tablet 11 11/21/19 24 025 Active acetaminophen (Tylenol 8 Hour) 650 MG ER tabletIndicati ons:Rib pain on right side TAKE 1 TAB BY MOUTH EVERY 8 HOURS IF NEEDED FOR MILD PAIN FOR UP TO 10 DAYS.DO NOT CRUSH/CHEW/SP LIT 90 tablet 12/20/19 24 Active ibuprofen 400 MG tablet Take 1 tablet (400 mg) by mouth if needed each day for moderate pain. 30 tablet 3 04/26/19 25 Active cyclobenzaprin e (Flexeril) 10 MG tabletIndicati ons:Other chronic back pain Take 1 tablet (10 mg) by mouth 3 times daily for 10 days. 30 tablet 05/11/19 25 Active tiZANidine (Zanaflex) 4 MG tabletIndicati ons:Muscle spasm TAKE 1 TABLET BY MOUTH EVERY 8 HOURS IF NEEDED FOR MUSCLE SPASMS 30 tablet 2 06/19/19 25 Active Acetaminophen Extra Strength 500 MG tabletIndicati ons:Other chronic pain TAKE 2 TABLETS BY MOUTH TWICE A DAY 120 tablet 1 07/10/19 25 Active Acetaminophen Extra Strength 500 MG tabletIndicati ons:Other chronic pain TAKE 2 TABLETS BY MOUTH TWICE A DAY 120 tablet 1 05/08/19 25 025 Discontinued Active Problems Problem Noted Date Diagnosed Date Abnormal liver function tests 05/19/2021 High thyroid stimulating hormone (TSH) level 04/2021 Hypertriglyceridemia 05/19/2021 Vitamin D deficiency 05/19/2021 Viral hepatitis C 02/08/2019 Encounters Date Type Department Care Team Description 07/11/2024 2:20 PM EDT Office Visit [facility] MED & PEDS [address] [place] [address] Delma Rojo MD Myalgia (Primary Dx) 07/11/2024 Travel 07/11/2024 Telephone [facility] MEDICINE [address] [place] [address] Nata Ferrer MD Nurse Triage 07/08/2024 Refill [facility] MEDICINE [address] [place] [address] Nata Ferrer MD Other chronic pain 06/29/2024 Telephone [facility] MEDICINE [address] [place] [address] Nata Ferrer MD Nurse Triage 06/29/2024 Population Health Risk Score [facility] () Department [address] [place] [phone] Provider, Population Health Generic 06/26/2024 Telephone [facility] MED & PEDS [address] [place] [address] Nata Ferrer MD Nurse Triage 06/17/2024 Refill [facility] MED & PEDS [address] [place] [address] Nata Ferrer MD Muscle spasm 05/11/2024 11:30 AM EST Office Visit [facility] MED & PEDS [address] [place] [address] Delma Rojo MD Other chronic back pain (Primary Dx) 05/11/2024 Travel 05/10/2024 Telephone [facility] MED & PEDS [address] [place] [address] Nata Ferrer MD Nurse Triage 05/05/2024 Refill [facility] MEDICINE [address] [place] [address] Nata Ferrer MD Other chronic pain 04/26/2024 1:20 PM EST Office Visit [facility] MED & PEDS [address] [place] [address] Ema Ponce MD Chest wall pain (Primary Dx) 04/26/2024 Travel 04/25/2024 Telephone [facility] MEDICINE [address] [place] [address] Nata Ferrer MD Nurse Triage 04/24/2024 Telephone [facility] MED & PEDS [address] [place] [address] Nata Ferrer MD Medication Question from Last 3 Months Immunizations Name Administration Dates Next Due Pneumococcal Conjugate PCV 20 11/18/2023 Social History Tobacco Use Types Packs/Day Years Used Date Smoking Tobacco: Every Day Cigarettes Passive Smoke Exposure: Current Smokeless Tobacco: Never Tobacco Cessation:Ready to Q uit: Not Asked; Counseling Given: Not Answered Depression Answer Date Recorded Patient Health Questionnaire-9 [...] Orientation Straight 02/15/2022 10 :36 AM EDT Last Filed Vital Signs Vital Sign Reading Time Taken Comments Blood Pressure 120/78 07/11/2024 2:41 PM EDT Pulse 105 07/11/2024 2:41 PM EDT Temperature 36.7 ??C (98.1 ??F) 07/11/2024 2:41 PM ED T Respiratory Rate 18 07/11/2024 2:41 PM EDT Oxygen Saturation 96% 07/11/2024 2:41 PM EDT Inhaled Oxygen Concentration - - Weight 125 kg (275 lb) 07/11/2024 2:41 PM EDT Height 177.8 cm (5' 10 ) 07/11/2024 2:41 PM EDT Body Mass Index 39.46 07/11/2024 2:41 PM EDT Plan of Treatment Health Maintenance Due Date Last Done Comments CT Colonography 1975 Colonoscopy 1975 Colorectal Cancer Screening 1975 FIT DNA/Cologuard 1975 FIT 1975 FOBT 1975 Sigmoidoscopy 1975 Alcohol/Substance Use Screening 1987 Family Planning (PISQ) 10/11/1990 SDOH Screening 05/05/2023 05/05/2022 COVID-19 Vaccine (2023-2 5 season) 2023 04/16/2021, 06/25/2020, 06/04/2020 Influenza Vaccine (#1) 2023 DTaP/Tdap/Td Vaccines (1 - Tdap) 11/17/2024 Postponed from 10/11 (Patient Refused) Depression Screening 11/17/2024 11/18/2023, 11/18/2023 Hepatitis A Vaccines (1 of 2 - Risk 2-dose series) 11/17/2024 Postponed from (Patient Refused) Hepatitis B Vaccines (1 of 3 - 19+ 3-dose series) 11/17/2024 Postponed from 09/17 (Patient Refused) Tobacco Screening 05/11/2025 05/11/2024 Zoster Vaccines (1 of 2) 10/11/2025 Lipid Panel 11/17/2028 11/18/2023, 01/03/2023, 05/18/2021 RSV Patients and Patients Aged 60 years or older (1 - 1-dose 75+ series) 10/11/2050 HIV Screening Completed 05/28/2021 Pneumococcal Vaccine: Pediatrics (0 to 5 Years) and At-Risk Patients (6 to 49) Years) Completed 11/18/2023 HIB Vaccines Aged Out No longer eligi ble based on patient's age to complete this topic HPV Vaccines Aged Out No longer eligi ble based on patient's age to complete this topic IPV Vaccines Aged Out No longer eligi ble based on patient's age to complete this topic Meningococcal Vaccine Aged Out No shaheen rimma eligible based on patient's age to complete this topic RSV under 20 months Aged Out No longe r eligible based on patient's age to complete this topic Rotavirus Vaccines Aged Out No longer eligible based on patient's age to complete this topic Procedures Procedure Name Priority Date/Time Associated Diagnosis Comments POCT RAPID COVID ANTIGEN Routine 07/11/2024 3:03 PM EDT Myalgia POCT INFLUENZA B (ID NOW RAPID MOLECULAR) Routine 07/11/2024 3:02 PM EDT Myalgia POCT INFLUENZA A (ID NOW RAPID MOLECULAR) Routine 07/11/2024 3:02 PM EDT Myalgia LIPID PANEL, STANDARD Routine 11/18/2023 2:36 PM EDT Annual physical exam Hypertriglyceridemi a HIV 1/2 ANTIGEN/ANTIBODY, FOURTH GENERATION W/RFL Routine 05/28/2021 9:02 AM EST from Last 3 Months or Most Recently Relevant to Health Maintenance Results * POCT Rapid COVID Ag (07/11/2024 3:03 PM EDT) Rapid COVID Ag Negative QC Media Lot # Comment:[id number] Lot# Expiration Date Comment:10/26/2025 Swab 07/11/2024 3:03 PM EDT Delma Rojo MD POINT OF CARE TEST ENTER/EDIT OR DERABLES Final Result * Influenza B (ID NOW Rapid Molecular) (07/11/2024 3:02 PM EDT) Influenza B Negative Negative, Indeterminate [facility] QC Media Lot # [facility] Comment:[id number] Lot# Expiration Date [facility] Comment:11/15/2024 Swab 07/11/2024 3:02 PM EDT Delma Rojo MD POINT OF CARE TEST ENTER/EDIT OR DERABLES Final Result Performing Organization Address City/[facility]/ZIP Co de Phone Number [facility] [address] [place] [address] [phone] * Influenza A (ID NOW Rapid Molecular) (07/11/2024 3:02 PM EDT) Influenza A Negative Negative, Indeterminate [facility] QC Media Lot # [facility] Comment:[id number] Lot# Expiration Date [facility] Comment:11/15/2024 Swab 07/11/2024 3:02 PM EDT Delma Rojo MD POINT OF CARE TEST ENTER/EDIT OR DERABLES Final Result Performing Organization Address [facility] Co de Phone Number [facility] [address] [place] [address] [phone] * (ABNORMAL) Lipid Panel, Standard (11/18/2023 2:36 PM EDT) Triglycerides 170(H) <150 mg/dL [facility] Comment:Desirable Triglyceri de: less than 150 mg/dLBorderline High Triglyceride 150-199 mg/dLHigh Triglyceride: 200-499 mg/dLVery High Triglyceride: greater than or equal to 5OO mg/dL Cholesterol 218(H) <200 mg/dL [facility] Comment:Desirable Cholestero l: less than 200 mg/dLBorderline High Cholesterol: 200-239 mg/dLHigh Cholesterol: greater than 239 mg/dL LDL Cholesterol Calculated 150(H) <100 mg/dL [facility] Comment:Desirable LDL: less than 100 mg/dLNear Optimal/Above Optimal LDL: 110- 129 mg/dLBorderline High LDL: 130-159 mg/dLHigh LDL: 160-189 mg/dLVery High LDL: greater than or equal to 190 mg/dL HDL Cholesterol 34(L) >40 mg/dL [facility] Comment:Desirable HDL: great er than 40 mg/dL Note: This HDL assay may give artificially low results in patients with liver disease. Blood Venous blood specimen / Unknown 11/18/2023 2:36 PM EDT 11/18/2023 6:00 PM EDT us Nata Ferrer MD LAB BLOOD ORDERABLES Final Result [facility] [address] [place] [address] [phone] * HIV 1/2 ANTIGEN/ANTIBODY,FOURTH GENERATION W/RFL (05/28/2021 9:02 AM EST) HIV-1/2 ANTIGEN AND ANTIBODIES, 4TH GENERATION W/ REFLEX NON-REACT [facility] NON-REACT [facility] Comment: HIV-1 antigen and HIV-1/HIV-2 antibodies were not detected. There is no laboratory evidence of HIV infection. ?? PLEASE NOTE: This information has been disclosed to you from records whose confidentiality may be protected by state law. ??If your state requires such protection, then the state law prohibits you from making any further disclosure of the information without the specific written consent of the person to whom it pertains, or as otherwise permitted by law. A general authorization for the release of medical or other information is NOT sufficient for this purpose. ? For additional information please refer to http://education.[employer]/faq/PZJ484 (This link is being provided for informational/ educational purposes only.) ? The performance of this assay has not been clinically validated in patients less than 2 years old. ?? 05/28/2021 9:02 AM EST us Nata Ferrer MD LAB BLOOD ORDERABLES Final Result [facility] [address] from Last 3 Months or Most Recently Relevant to Health Maintenance Insurance MEDICARE [facility] Care Teams Health Tech Relationship Specialty Start Date End Date Nata Ferrer MD [address] [place] [address] PCP - General Internal Medicine 02/07/19
[2024-07-22] MEDS: Acetaminophen 325 MG TABLET 975 MG PO (13:51)
[2024-07-22 14:16] VITALS: BP 117/75; PULSE 955; RESP 14; O2SAT 955
[2024-07-22 14:22] LABS: MANUAL DIFF FLAG NO
[2024-07-22 14:30] LABS: Basophils Absolute Auto 0.1 X10*3/uL (0.0-0.2); Basophils Percent Auto 0.5 % (0-2); Eosinophils Absolute Auto 0.1 X10*3/uL (0.0-0.4); Eosinophils Percent Auto 0.6 % (0-4); Hematocrit 43.4 % (42.0-52.0); Hemoglobin 15.6 g/dl (14.0-18.0); Imm Gran Abs Auto 0.08 X10*3/uL (0.00-0.03); Imm Gran Pct Auto 0.6 % (0.0-0.4); Lymphocytes Absolute Auto 3.5 X10*3/uL (1.2-4.9); Lymphocytes Percent Auto 26.8 % (20-40); Mean Corpuscular HGB Conc 35.9 g/dl (31.0-36.0); Mean Corpuscular Hemoglobin 31.3 pg (27.0-33.0); Mean Platelet Volume 9.6 fL (9.4-12.4); Monocytes Absolute Auto 0.7 X10*3/uL (0.1-1.2); Monocytes Percent Auto 5.6 % (2-11); Neutrophils Absolute Auto 8.7 x10*3/uL (2.0-8.3); Neutrophils Percent Auto 65.9 % (45-73); Platelet Count 360 X10*3/uL (160-400); Red Blood Count 4.99 X10*6/uL (4.60-5.80); Red Cell Distribution Width 12.9 % (11.0-16.0); White Blood Count 13.2 X10*3/uL (4.8-10.8)
[2024-07-22 14:45] LABS: Alanine Aminotransferase 31 U/L (0-40); Albumin Level 4.4 g/dL (3.5-5.0); Alkaline Phosphatase 63 U/L (39-117); Anion Gap 11 (12-20); Aspartate Amino Transferase 23 U/L (5-37); Bilirubin Direct 0.2 mg/dL (0.0-0.5); Bilirubin Total 0.5 mg/dL (0.0-1.0); Blood Urea Nitrogen 18 mg/dL (9-16); Calcium 9.4 mg/dL (8.4-10.2); Carbon Dioxide 25 mmol/L (22-29); Chloride 106 mmol/L (96-108); Creatinine Clr Calc Pharmacy 137.6; Estimated Glomerular Filt Rate > 60; Glucose Random 93 mg/dL (60-115); Magnesium 2.1 mg/dL (1.6-2.6); Sodium 138 mmol/L (135-145); Total Protein 7.2 g/dL (6.5-8.0)
[2024-07-22 14:50] LABS: Troponin-I High Sensitivity < 2.7 ng/L (<3.5-35.0)
[2024-07-22 15:01] LABS: TSH reflex Free T4 4.18 uIU/mL (0.32-4.0)
[2024-07-22 15:32] LABS: Free T4 (Free Thyroxine) 0.97 ng/dL (0.71-1.85)
[2024-07-22 16:00] VITALS: BP 112/76; PULSE 90; RESP 11; O2SAT 96
[2024-07-22 17:13] LABS: Troponin-I High Sensitivity < 2.7 ng/L (<3.5-35.0)
[2024-07-22 17:28] VITALS: BP 124/85; PULSE 92; RESP 17; O2SAT 95
[2024-07-22 18:16] VITALS: BP 124/85; PULSE 92; RESP 17; TEMP 36.7; O2SAT 95
== END 2024-07-22 18:18 | disposition home or self-care (01) ==
PROVIDERS: Nurse Practitioner Family; Emergency Provider Emergency Medicine; PCP Internal Medicine
DX: R07.9 Chest pain, unspecified (principal); Z79.899 Other long term (current) drug therapy
CPT/HCPCS: 36415; 71046; 80048; 80076; 83735; 84439; 84443; 84484; 85025; 93005; 99284; 99285

== ENCOUNTER → 2024-07-22 13:20 | Outpatient (BNV) | payer MEDICARE, MEDICAID, SELFPAY | PROVIDERS: Emergency Provider Emergency Medicine; PCP Internal Medicine; Visit Provider Internal Medicine Cardiovascular Disease | DX: R94.31 Abnormal electrocardiogram [ECG] [EKG] (principal); R00.2 Palpitations | CPT/HCPCS: 93010 ==

== ENCOUNTER → 2024-07-22 13:20 | Outpatient (BNV) | payer MEDICARE, MEDICAID, SELFPAY | PROVIDERS: Emergency Provider Emergency Medicine; PCP Internal Medicine; Visit Provider Radiology Diagnostic Radiology | DX: R00.2 Palpitations (principal) | CPT/HCPCS: 71046 ==

== ENCOUNTER 2024-08-12 11:38 | Emergency (ER) | payer MEDICARE, MEDICAID, SELFPAY ==
--- NOTE | ~2024-08-12 | CT_ITS ---
CLINICAL HISTORY: ABD pain, N D, LQ TTP CT ABDOMEN AND PELVIS WITH CONTRAST Comparison: None Findings: Scattered mild atelectasis and/or scarring. No consolidation. Tiny right pleural effusion and/or pleural thickening. Bilateral renal excretion with no hydronephrosis, significant perinephric edema or abnormal renal cortical enhancement. There is a tiny left renal cyst. No acute abnormalities in the remaining solid organs. The liver is enlarged. The right hepatic lobe measures 20 cm on coronal image 51. The spleen is enlarged measuring 15.5 cm on coronal image 63. No lymphadenopathy. Multiple gallstones. No significant biliary ductal dilatation. No AAA. No bowel obstruction, pneumoperitoneum, or pneumatosis. No ascites organized fluid collection. No significant mesenteric or paracolic edema. Moderate colonic stool burden. Pelvic contents unremarkable. Normal appendix. Multiple old nonunited right rib fractures. IMPRESSION: 1. No obstructive or acute inflammatory changes in the gastrointestinal and genitourinary tracts. 2. Cholelithiasis. 3. Hepatosplenomegaly. This document has been electronically signed by: Zully Fuchs DO on 08/12/2024 15:24:32
[2024-08-12 11:54] VITALS: BP 130/70; BP 139/65; PULSE 72; PULSE 78; RESP 18; TEMP 36.6; O2SAT 98; BMI 85.9
--- NOTE | 2024-08-12 12:15 | ED.GENADULT ---
HPI - General Adult General Chief complaint: General Medical Stated complaint: BODY ACHES Time Seen by Provider: 08/12/24 11:51 Source: patient and EMS Mode of arrival: EMS Limitations: no limitations History of Present Illness ED Provider: Cherie Flannery NP HPI narrative: Patient is a 40-year-old male who presents emergency department via EMS coming from [facility]. Endorses having generalized diffuse abdominal pain in pain to the lateral aspects of the abdomen over the past 3 weeks. He feels that pain is progressively worsening, today was much worse. Has associated nausea but no vomiting. Admitted to having a small amount of diarrhea yesterday as well as sporadically throughout the past few weeks, otherwise very small formed bowel movements of a few days He denies any injury. Denies fevers, chills, chest pain, vomiting, hematemesis, constipation, hematochezia, melena, dysuria, urinary frequency, urinary urgency, urinary hesitancy, hematuria. denies testicular pain/urethral discharge or scrotal swelling. Related Data Previous Rx's ?Medication ?Instructions ?Recorded polyethylene glycol 3350 17 17 g PO DAILY #119 grams 08/12/24 gram/dose oral powder (Miralax) Allergies Allergy/AdvReac Type Severity Reaction Status Date / Time clozapine [From CLOZARIL] Allergy Unknown UNK Verified 08/12/24 11:57 Review of Systems Review of Systems: Yes all other systems are reviewed and are negative PMFSH Past Medical History Attestation statement: The following information was validated with the patient. Source: old records reviewed Social History Social History Smoked in Last 30 Days: Yes Use of substances other than those prescribed or required for medical reasons: Yes Substance Use Type: Marijuana Substance Use Frequency: Daily Last Used Substance: Days (ago) Any prior treatment program specific to substance use: No Advance Directives: No Advance Directives Information Provided: No Do you have a plan to hurt others: No Plan Physical Exam ED Vital Signs: Vital Signs - 24 hr 08/12/24 11:54 08/12/24 12:34 08/12/24 14:35 Temperature 97.8 F 97.8 F 97.2 F Pulse Rate 78 78 68 Respiratory Rate 18 18 18 Blood Pressure 139/65 139/95 H 126/81 Pulse Oximetry 98 98 99 Oxygen Delivery Method Room Air Room Air 08/12/24 14:50 Temperature 97.5 F Pulse Rate 77 Respiratory Rate 13 Blood Pressure 138/80 Pulse Oximetry 98 Oxygen Delivery Method Room Air BMI result Body Mass Index 85.9 Appearance: Alert.?Oriented to person, place and time. No acute distress.?Normal affect.?? Neck: Normal inspection.? Neck supple.?? CVS: Heart sounds normal. Normal heart rate and rhythm.? Pulses normal.?? Respiratory: No respiratory distress.? Lung sounds clear to auscultation bilaterally?? Abdomen: Soft with diffuse tenderness of the abdomen particularly worse in the left lower quadrant. No rebound tenderness at McBurney's point. Negative psoas sign. Negative Rovsing sign. Negative Barros sign. No CVAT. Normoactive bowel sounds. No pulsatile mass.?? Skin: Skin warm and dry.? Normal skin color.? Extremities: No lower extremity edema.? Neuro: Moves all extremities spontaneously. Sensation intact bilaterally. Ambulates with normal steady gait. Course Reevaluation(s) Reevaluation #1: CT of the abdomen and pelvis is without acute pathology, there is however moderate stool burden that is noted, patient received MiraLax and docusate/senna in the emergency department, reviewed outpatient increase fiber intake as well as daily MiraLax and outpatient follow-up with primary care doctor. All questions answered. Stable for discharge, Medications Administered Discontinued Medications Generic Name Dose Route Start Last Admin Trade Name Freq PRN Reason Stop Dose Admin Sodium Chloride 1,000 mls @ 999 mls/hr 08/12/24 12:45 08/12/24 14:47 Ns IV 08/12/24 13:45 Infused .Q1H1M OBDULIA Infusion Iohexol 100 ml 08/12/24 14:11 08/12/24 14:11 Iohexol 350 Mg/Ml 100 Ml Infus..Btl IV 08/12/24 14:12 85 ml ONCE ONE Administration Morphine Sulfate 2 mg 08/12/24 12:34 08/12/24 12:54 Morphine Sulfate 2 Mg/Ml Cartridge IVPUSH 08/12/24 12:35 2 mg ONCE ONE Administration Protocol Ondansetron HCl 4 mg 08/12/24 12:34 08/12/24 12:55 Ondansetron Hcl 4 Mg/2 Ml Vial IVPUSH 08/12/24 12:35 4 mg ONCE ONE Administration Polyethylene Glycol 17 gm 08/12/24 16:27 08/12/24 16:39 Polyethylene Glycol 3350 17 Gm Powd.Pack PO 08/12/24 16:28 17 gm ONCE ONE Administration Senna/Docusate Sodium 1 tab 08/12/24 16:27 08/12/24 16:39 Sennosides/Docusate Sodium Tablet PO 08/12/24 16:28 1 tab NOW STA Administration Medical Decision Making Medical Decision Making [facility] Narrative: Patient is a 40-year-old male past medical history of hepatitis-C, schizophrenia, reported chronic back pain who presents emergency department for evaluation of 3 weeks with a abdominal pain nausea and intermittent diarrhea, progressively worsening and was notably worse today as per HPI. On evaluation he has diffuse abdominal pain and tenderness but notably more profound in the left lower quadrant this coupled with his diarrhea nausea is concerning for potential diverticulitis, has a history of hepatitis-C as well, can not completely exclude acute hepatobiliary etiology, he has no fever pronounced jaundice to suggest acute cholangitis. He denies associated acid reflux, denies history of hematemesis, to suggest PUD, denies alcohol consumption or history of diabetes to favor acute pancreatitis. No notable hernias on examination to suggest strangulation/incarceration. Denies any genitourinary symptoms. Will additionally obtain viral serologies. Patient received 1 L normal saline IV fluid, Zofran 4 mg IV for nausea, morphine 2 mg IV for pain 10/10. At this time he appears overall well, nontoxic, he is afebrile without tachycardia or hypotension. Differential Diagnosis Differential Diagnoses: The differential diagnosis associated with the presentation includes (See narrative above) Admission/Observation Consideration of admission/observation: Escalation of care including admission/observation considered (See narrative above ) Lab Data [facility] Lab Attestation statement: I reviewed the patient's lab results. CBC is without leukocytosis anemia or thrombocytopenia. No electrolyte derangement. No MIREYA. LFTs unremarkable. Lipase normal. Urinalysis without evidence of infection. Viral serologies are negative. 08/12/24 12:53 08/12/24 12:53 Labs: Lab Results 08/12/24 08/12/24 08/12/24 Range/Units 12:07 12:53 15:28 WBC 9.7 (4.8-10.8) X10*3/uL RBC 5.25 (4.60-5.80) X10*6/uL Hgb 16.3 (14.0-18.0) g/dl Hct 48.9 (42.0-52.0) % MCV 93.1 (80.0-98.0) fL MCH 31.0 (27.0-33.0) pg MCHC 33.3 (31.0-36.0) g/dl RDW 13.1 (11.0-16.0) % Plt Count 262 D (160-400) X10*3/uL MPV 9.9 (9.4-12.4) fL Immature Gran % (Auto) 0.6 H (0.0-0.4) % Neut % (Auto) 56.8 (45-73) % Lymph % (Auto) 35.0 (20-40) % [place] % (Auto) 5.9 (2-11) % Eos % (Auto) 1.0 (0-4) % Baso % (Auto) 0.7 (0-2) % Lymph # (Auto) 3.4 (1.2-4.9) X10*3/uL [place] # (Auto) 0.6 (0.1-1.2) X10*3/uL Eos # (Auto) 0.1 (0.0-0.4) X10*3/uL Baso # (Auto) 0.1 (0.0-0.2) X10*3/uL Abs Immat Gran (auto) 0.06 H (0.00-0.03) X10*3/uL Absolute Neuts (auto) 5.5 (2.0-8.3) x10*3/uL Absolute Nucleated RBC 0.000 (0.0-0.012) X10*3/uL Nucleated RBC % (auto) 0.0 (0.0-0.2) /100WBC Sodium 140 (135-145) mmol/L Potassium 4.8 (3.3-5.1) mmol/L Chloride 106 (96-108) mmol/L Carbon Dioxide 24 (22-29) mmol/L Anion Gap 15 (12-20) BUN 16 (9-16) mg/dL Creatinine 0.76 (0.5-1.4) mg/dL Estim Creat Clear Calc 248.8 Estimated GFR > 60 Random Glucose 89 (60-115) mg/dL Calcium 9.6 (8.4-10.2) mg/dL Magnesium 2.1 (1.6-2.6) mg/dL Total Bilirubin 0.4 (0.0-1.0) mg/dL Direct Bilirubin 0.1 (0.0-0.5) mg/dL AST 28 (5-37) U/L ALT 30 (0-40) U/L Alkaline Phosphatase 60 (39-117) U/L Total Protein 7.4 (6.5-8.0) g/dL Albumin 4.4 (3.5-5.0) g/dL Lipase 24 (8-78) U/L Urine Color Yellow Urine Appearance Clear Urine pH 6.5 (5.0-9.0) Ur Specific [place] >= 1.030 H (1.005-1.025) Urine Protein Negative (Neg-Trace) mg/dL Urine Glucose (UA) Negative (Negative) mg/dL Urine Ketones Negative (Negative) mg/dL Urine Blood Negative (Negative) Urine Nitrite Negative (Negative) Ur Leukocyte Esterase Negative (Negative) Influenza Type A (PCR) NEGATIVE (Negative) Influenza Type B (PCR) NEGATIVE (Negative) RSV RNA Qual (PCR) NEGATIVE (Negative) SARS-CoV-2 RNA (RT-PCR) NEGATIVE (Negative) S. pyogenes GrpA NICOLASA Negative (Negative) Independent Interpretation I performed an independent interpretation of an: CT Scan Radiology Impression Discussion of test interpretation with radiology: I have reviewed the radiologist's reading. Radiologist Impression: CT ABDOMEN AND PELVIS WITH CONTRAST Comparison: None Findings: Scattered mild atelectasis and/or scarring. No consolidation. Tiny right pleural effusion and/or pleural thickening. Bilateral renal excretion with no hydronephrosis, significant perinephric edema or abnormal renal cortical enhancement. There is a tiny left renal cyst. No acute abnormalities in the remaining solid organs. The liver is enlarged. The right hepatic lobe measures 20 cm on coronal image 51. The spleen is enlarged measuring 15.5 cm on coronal image 63. No lymphadenopathy. Multiple gallstones. No significant biliary ductal dilatation. No AAA. No bowel obstruction, pneumoperitoneum, or pneumatosis. No ascites organized fluid collection. No significant mesenteric or paracolic edema. Moderate colonic stool burden. Pelvic contents unremarkable. Normal appendix. Multiple old nonunited right rib fractures. IMPRESSION: 1. No obstructive or acute inflammatory changes in the gastrointestinal and genitourinary tracts. 2. Cholelithiasis. 3. Hepatosplenomegaly. External Record Review External record reviewed: Outpatient record Chronic Conditions Patient?s care impacted by: Other (See narrative above) Discharge Plan Discharge Clinical Impression: Constipation Patient Disposition: Home, Self-Care Instructions: Constipation (ED), High Fiber Diet (ED) Additional Instructions: Workup today shows that you have a moderate stool burden within the colon, meaning constipation. You can have some diarrhea when liquid from the stool is moving past the stool stuck within the intestine. I am sending a prescription for MiraLax to the pharmacy to take daily. Try to increase daily fiber intake in the diet. Follow up with primary care doctor Prescriptions: New polyethylene glycol 3350 [Miralax] 17 gram/dose powder 17 g PO DAILY Qty: 119 0RF Referrals: Nata Ferrer MD [Primary Care Provider] - Print Language: [place]ese
--- OUTSIDE RECORDS SUMMARY | 2024-08-12 12:30 | XMS_ITS | Encounter Summary ---
Author Organization [employer] Address [address] [facility] 7t [place] [address] Care Team Providers Care Pellet Press Operator Name Role Phone Nata Ferrer MD Primary Care Provider [phone] Encounter Details Date Type Department Care Team (Latest Contact Info) Description 01/04/2023 Orders Only [facility] [address] [place] [address] Nata Ferrer MD [address] [place] [address] Hypertriglyceridemia (Primary Dx) Social History Tobacco Use [...] documented as of this encounter Care Teams Pellet Press Operator Relationship Specialty Start Date End Date Nata Ferrer MD [address] [place], [place] [phone] PCP - General Internal Medicine 02/07/19 documented as of this encounter
--- OUTSIDE RECORDS SUMMARY | 2024-08-12 12:30 | XMS_ITS | Encounter Summary ---
Author Organization [employer] Address [address] [facility] [address] [place] [address] Care Team Providers Care Print Color Matcher Name Role Phone Nata Ferrer MD Primary Care Provider [phone] Reason for Visit * Reason Onset Date Comments Same day care 06/15/23 06/15/2023 Encounter Details Date Type Department Care Team ([facility] st Contact Info) Description 06/15/2023 Telephone [facility] [address] [place] [address] Nata Ferrer MD [address] [place], [place] [phone] Same day care 06/15/23 Social History Tobacco [...] documented as of this encounter Care Teams Print Color Matcher Relationship Specialty Start Date End Date Nata Ferrer MD [address] [place] [id number] PCP - General Internal Medicine 02/07/19 documented as of this encounter
--- OUTSIDE RECORDS SUMMARY | 2024-08-12 12:30 | XMS_ITS | Encounter Summary ---
Author Organization [employer] Address [address] [facility] [address] [place] [address] Care Team Providers Care Compensation Business Partner Name Role Phone Nata Ferrer MD Primary Care Provider [phone]- [phone] Reason for Visit * Reason Onset Date Comments Nurse Triage 08/09/2024 Encounter Details Date Type Department Care Team (Late st Contact Info) Description 08/09/2024 Telephone [facility] [address] [place] [address] Nata Ferrer MD [address] [place] [address] Nurse Triage Social History Tobacco Use Types [...] encounter Miscellaneous Notes * Telephone Encounter - Nafisa Farris RN - 08/09/2024 2:44 PM EDT called pt to triage, spoke to pt. pt states 2 days duration of low back pain that radiates into both hips. pt reports urinary frequency but drinks a lot of fluids. pt denies blood, history, fever, burning, or other associated symptoms. pt unable to come in today, [facility] and has to havestaff available. advised no available appt to schedule tomorrow, and to call back tomorrow morning for any open appt. advised home care: rest, fluids, monitor temperature, and call back as needed. ptunderstands and agrees to plan. insurance verified. Protocol Used: Back Pain (Adult) Protocol-Based Disposition: See in Office or Video Visit within 3 Days Video visit offer not recorded Positive Triage Question: * Patient wants to be seen * All higher-acuity triage questions were negative Care Advice Discussed: * Reassurance and Education - Back Pain * Cold or Heat * Sleep * Continue Activity * Pain Medicines * Reasons To Call Back - Fever occurs - Numbness or weakness occurs - Loss of control of your bladder or bowel - Severe pain not better after taking pain medicines - Pain begins to shoot into the leg - Pain lasts over 2 weeks - Pain becomes worse - You become worse * Telephone Encounter - Kriss Tracey - 08/09/2024 1:00 PM EDT Symptoms: Back Pain - Not From Injury, Hip Pain - Not From Injury Outcome: Schedule an appointment to be seen within 24 hours Reason: Caller denied all higher acuity questions The caller accepted this outcome. documented in this encounter Plan of Treatment Not on file documented as of this encounter Visit Diagnoses Not on filedocumented in this encounter Additional Health Concerns Assessment Noted Time PHQ-9 Depression Total Score: 7 11/18/19 24 2:11 PM EDT documented as of this encounter Care Teams Compensation Business Partner Relationship Specialty Start Date End Date Nata Ferrer MD [address] [place] [phone] PCP - General Internal Medicine 02/07/19 documented as of this encounter
--- OUTSIDE RECORDS SUMMARY | 2024-08-12 12:30 | XMS_ITS | Encounter Summary ---
Author Organization [employer] Address [address] [facility] [address] [place] [address] Care Team Providers Care Lace Roller Operator Name Role Phone Nata Ferrer MD Primary Care Provider [phone] Reason for Visit * Reason Comments Med Refill Encounter Details Date Type Department Care Team ([facility] st Contact Info) Description 08/10/[address] [facility] [address] [place] [address] Nata Ferrer MD [address] [place], [place] [phone] Rib pain on right side Social History [...] documented as of this encounter Care Teams Lace Roller Operator Relationship Specialty Start Date End Date Nata Ferrer MD [address] [place] [phone] PCP - General Internal Medicine 02/07/19 documented as of this encounter
--- OUTSIDE RECORDS SUMMARY | 2024-08-12 12:30 | XMS_ITS | Encounter Summary ---
Author Organization [employer] [facility] Address [address] [facility] [address] [place] [address] Care Team Providers Care Technical Illustrator Name Role Phone Nata Ferrer MD Primary Care Provider [phone]- [phone] Reason for Visit * Reason Comments Med Refill Encounter Details Date Type Department Care Team ([facility] st Contact Info) Description 12/16/2022 Refill [facility] [address] [place] [address] Nata Ferrer MD [address] [place] [address] Other chronic pain; Rib pain on right [...] documented as of this encounter Care Teams Technical Illustrator Relationship Specialty Start Date End Date Nata Ferrer MD [address] [place] [address] PCP - General Internal Medicine 02/07/19 documented as of this encounter
--- OUTSIDE RECORDS SUMMARY | 2024-08-12 12:30 | XMS_ITS | Encounter Summary ---
Author Organization [employer] Address [address] [facility] [address] [place] [address] Care Team Providers Care Asl Interpreter Name Role Phone Nata Ferrer MD Primary Care Provider [phone] Reason for Visit * Reason Onset Date Comments Medication Question 04/06/2023 Encounter Details Date Type Department Care Team ([facility] st Contact Info) Description 04/06/2023 Telephone [facility] [address] [place] [address] Nata Ferrer MD [address] [place] [address] Medication Question Social History Tobacco Use Types [...] t he electric, gas, oil or water [employer] threatened to shut off services in your [...] - 04/06/2023 3:03 PM EST Tc from Rachel the RN at the [facility] calling to request a order for to [...] documented as of this encounter Care Teams Asl Interpreter Relationship Specialty Start Date End Date Nata Ferrer MD [address] [place] [id number] PCP - General Internal Medicine 02/07/19 documented as of this encounter
--- OUTSIDE RECORDS SUMMARY | 2024-08-12 12:30 | XMS_ITS | Encounter Summary ---
Author Organization [employer] Address [address] [place] [address] Care Team Providers Care Head Baggage Porter Name Role Phone Nata Ferrer MD Primary Care Provider [phone] Encounter Details Date Type Department Care Team ([facility] st Contact Info) Description 04/12/2023 Orders Only [facility] [address] [place] [address] Nata Ferrer MD [address] [place] [address] Other chronic pain Social History Tobacco Use [...] documented as of this encounter Care Teams Head Baggage Porter Relationship Specialty Start Date End Date Nata Ferrer MD [address] [place] [phone] PCP - General Internal Medicine 02/07/19 documented as of this encounter
--- OUTSIDE RECORDS SUMMARY | 2024-08-12 12:30 | XMS_ITS | Clinical Summary ---
Author Organization [facility] Address [address] [place] [address] Care Team Providers Care Tightener Name Role Phone Unavailable Primary Care Provider [...] Vaccine (2023-2 5 season) 2023 Influenza Vaccine (Season Ended) 2024 HIB Vaccines Aged Out No longer eligi [...] age to complete this topic Meningococcal B Vaccine Aged Out No l onger eligible based on patient's age to complete [...] Documents on File Type Date Recorded Patient Cork Sorter Expl anation Health Care Decision (hx) 11/29/2019 AD KENNEY DIRECTIVE Health Care Decision (hx) 11/19/2019 AD KENNEY DIRECTIVE
--- OUTSIDE RECORDS SUMMARY | 2024-08-12 12:30 | XMS_ITS | Encounter Summary ---
Author Organization [employer] Address [address] [facility] 7t [place] [address] Care Team Providers Care Java Spring Developer Name Role Phone Nata Ferrer MD Primary Care Provider [phone] Reason for Visit * Reason Comments Med Refill Encounter Details Date Type Department Care Team ([facility] Contact Info) Description 06/21/2023 Refill [facility] [address] [place] [address] Nata Ferrer MD [address] [place] [address] Muscle spasm; Other chronic pain Social History [...] documented as of this encounter Care Teams Java Spring Developer Relationship Specialty Start Date End Date Nata Ferrer MD [address] [place] [phone] PCP - General Internal Medicine 02/07/19 documented as of this encounter
--- OUTSIDE RECORDS SUMMARY | 2024-08-12 12:30 | XMS_ITS | Clinical Summary ---
Author Organization [employer] Address [address] [facility] [address]t [place] [address] Care Team Providers Care Print Inspector Name Role Phone Nata Ferrer MD Primary Care Provider [phone]- [phone] Allergies No known active allergies Medications clonazePAM (KlonoPIN) 0.5 MG tablet take 1 tablet by oral route 3 times daily Active gabapentin (Neurontin) 800 MG tablet Take 1 tablet by mouth every 8 (eight) hours. Active hydrOXYzine pamoate (Vistaril) 50 MG capsule 3 Active LORazepam (Ativan) 1 MG tablet TAKE 1 TABLET BY MOUTH 3 TIMES A DAY NEEDED ..AT LEAST 6 HRS APART.MAX 3 TABS DAILY 2 Active OLANZapine (ZyPREXA) 10 MG tablet Take 1 tablet by mouth every 8 (eight) hours. Active paliperidone (Invega) 9 MG 24 hr tablet 3 Active Acetaminophen Extra Strength 500 MG tabletIndicatio ns:Other chronic pain TAKE 1 TABLET BY MOUTH EVERY 6 HOURS NEEDED FOR MILD PAIN FOR UP TO 23 DAYS. 90 tablet 3 Active lidocaine (Lidoderm) 5 % patchIndication s:Rib pain on right side Apply 1 patch topically in the morning. Remove & discard patch within 12 hours or as directed by . 30 patch 1 3 Active lidocaine (Lidoderm) 5 % patchIndication s:Other chronic pain Apply 1 patch topically in the morning. Remove & discard patch within 12 hours or as directed by . 30 patch 1 3 Active cholecalciferol (Vitamin D-3) 50 MCG (1999 UT) capsuleIndicati ons:Vitamin D deficiency Take 1 capsule (50 mcg) by mouth Once per day. 30 capsule 11 4 Active atorvastatin (Lipitor) 20 MG tabletIndicatio ns:Vitamin D deficiency Take 1 tablet (20 mg) by mouth Once per day. 30 tablet 11 4 11/21/19 25 Active acetaminophen (Tylenol 8 Hour) 650 MG ER tabletIndicatio ns:Rib pain on right side TAKE 1 TAB BY MOUTH EVERY 8 HOURS IF NEEDED FOR MILD PAIN FOR UP TO 10 DAYS.DO NOT CRUSH/CHEW/SPL IT 90 tablet 4 Active ibuprofen 400 MG tablet Take 1 tablet (400 mg) by mouth if needed each day for moderate pain. 30 tablet 3 5 Active cyclobenzaprine (Flexeril) 10 MG tabletIndicatio ns:Other chronic back pain Take 1 tablet (10 mg) by mouth 3 times daily for 10 days. 30 tablet 5 Active tiZANidine (Zanaflex) 4 MG tabletIndicatio ns:Muscle spasm TAKE 1 TABLET BY MOUTH EVERY 8 HOURS IF NEEDED FOR MUSCLE SPASMS 30 tablet 2 5 Active Acetaminophen Extra Strength 500 MG tabletIndicatio ns:Other chronic pain TAKE 2 TABLETS BY MOUTH TWICE A DAY 120 tablet 1 5 Active Active Problems Problem Noted Date Diagnosed Date Abnormal liver function tests 05/19/2021 High thyroid stimulating hormone (TSH) level 04/2021 Hypertriglyceridemia 05/19/2021 Vitamin D deficiency 05/19/2021 Viral hepatitis C 02/08/2019 Encounters Date Type Department Care Team Description 08/10/[address] [facility] [address] [place] [address] Nata Ferrer MD Rib pain on right side 08/09/[address] [facility] [address] [place] [address] Nata Ferrer MD Nurse Triage 07/30/[address] [facility] & PEDS [address] [place], [place] [phone] Nata Ferrer MD 07/22/2024 Orders Only [facility] External Provider, [facility] 07/11/2024 2:20 PM EDT Office Visit [facility]ED[facility] [address] [place] [address] Delma Rojo MD Myalgia (Primary Dx) 07/11/2024 Travel 07/11/[address] [facility] [address] [place] [address] Nata Ferrer MD Nurse Triage 07/08/[address] [facility] [address] [place] [address] Nata Ferrer MD Other chronic pain 06/29/[address] [facility] [address] [place] [address] Nata Ferrer MD Nurse Triage 06/29/2024 Population Health Risk Score [facility] () Department [address] [place] [phone] Provider, Population Health Generic 06/26/2024 Telephone [facility]ED[facility] [address] [place] [address] Nata Ferrer MD Nurse Triage 06/17/2024 Refill [facility] [address] [place] [address] Nata Ferrer MD Muscle spasm from Last 3 Months Immunizations Name Administration [...] 10/11/1990 SDOH Screening 05/05/2023 05/05/2022 COVID-19 Vaccine (4 - 2023-2 5 season) 2023 04/16/2021, 06/25/2020, 06/04/2020 Influenza [...] Procedure Name Priority Date/Time Associated Diagnosis Comments HIGH SENSITIVITY TROPONIN I Routine 07/22/2024 4:38 PM EDT XR CHEST 2 VIEWS Routine 07/22/2024 2:21 PM EDT POCT RAPID COVID ANTIGEN Routine 07/11/2024 3:03 [...] Recently Relevant to Health Maintenance Results * High Sensitivity Troponin I (07/22/2024 4:38 PM EDT) TROPONIN I HIGH SENSITIVITY <2.7 <3.5 - 35.0 ng/L [facility] Comment:The Saleh high sens itivity Troponin-I results should beused in conjunction with other diagnostic information suchas ECG, clinical observations and information, and patientsymptoms to aid in the diagnosis of OR. 07/22/2024 4:38 PM EDT 07/22/2024 4:40 PM EDT us Generic External Data Provider LAB BLOOD ORDERAB LES Final Result Performing Organization Address City/State/[facility] Co de Phone Number [facility] [address] [place] [phone] * XR Chest 2 Views (07/22/2024 2:21 PM EDT) Anatomical Region Laterality Modality Chest Radiographic Keyla ging 07/22/2024 2:21 PM EDT Narrative 07/22/2024 2:23 PM EDT ? [facility] ?[address] ?[place] [address] ?XRay Report ? Signed ? Patient: Mary,Paulino ?MR#: [id number] ?? 6 ? : 1975 ?Acct:[id number] ? Age/Sex: 48 / M ?ADM Date: 04/06/25 ? Loc: HO.ED ? Attending Dr: ? Ordering Physician: Jessica Landin NP ?? Date of Service: 07/22/24 ?? Procedure(s): XR chest 2V ?? Accession Number(s): [id number] ? cc: Nata Ferrer MD; Jessica Landin NP ? CLINICAL HISTORY: palpitations ? Chest Radiographs, 2 views ? Comparison: None ? Findings: ?? No cardiomegaly. ?? Normal mediastinal contours. ?? No pneumothorax. Peripheral opacity in the right mid and lower lung zones ?? on the PA view is attributed to artifact. No pleural effusion. ?? Normal upper abdomen. ?? No acute fracture. ? Impression: ?? No acute pathology. ? This document has been electronically signed by: Nella Conway MD ?? on 07/22/2024 14:21:48 ? Dictated By: ?Nella Olvera MD ? Signed By: ?<Electronically signed by Nella Olvera MD in OV> ? 07/22/24 1422 ? DD/ 1421 ? TD/TT: 07/22/24 1421 ? Remote Sensing Research Scientist: ? Procedure Note Veronica Bolivar - 07/22/[address] [address] XRay Report Signed Patient: Hi Hernandez#: [id number] 6 : 1975Acct:[id number] Age/Sex: 48 / MADM Date: 07/22/24 Loc: HO.ED Attending Dr: Ordering Physician: Jessica Landin NP Date of Service: 07/22/24 Procedure(s): XR chest 2V Accession Number(s): [id number] cc: Nata Ferrer MD; Jessica Landin NP CLINICAL HISTORY: palpitations Chest Radiographs, 2 views Comparison: None Findings: No cardiomegaly. Normal mediastinal contours. No pneumothorax. Peripheral opacity in the right mid and lower lung zones on the PA view is attributed to artifact. No pleural effusion. Normal upper abdomen. No acute fracture. Impression: No acute pathology. This document has been electronically signed by: Nella Conway MD on 07/22/2024 14:21:48 Dictated By: Nella lOvera MD Signed By: <Electronically signed by Nella Olvera MD in OV> 07/22/24 1422 DD/ 1421 TD/TT: 07/22/24 142 Remote Sensing Research Scientist: Result [facility] External Provider IMG XR PROCEDURES Edited Result - Final * POCT Rapid COVID Ag (07/11/2024 3:03 PM EDT) Rapid COVID Ag Negative QC Media Lot # Comment:[id number] Lot# Expiration Date Comment:10/26/2025 Swab 07/11/2024 3:03 PM EDT Result [facility] Delma Rojo MD POINT OF CARE TEST ENTER/EDIT OR DERABLES Final Result * Influenza B (ID NOW Rapid Molecular) (07/11/2024 3:02 PM EDT) Influenza B Negative Negative, Indeterminate [facility] QC Media Lot # [facility] Comment:[id number] Lot# Expiration Date [facility] Comment:11/15/2024 Swab 07/11/2024 3:02 PM EDT Result [facility] Delma Rojo MD POINT OF CARE TEST ENTER/EDIT OR DERABLES Final Result [facility] [address] [place] [phone] * Influenza A (ID NOW Rapid Molecular) (07/11/2024 3:02 PM EDT) Influenza A Negative Negative, Indeterminate [facility] QC Media Lot # [facility] Comment:[id number] Lot# Expiration Date [facility] Comment:11/15/2024 Swab 07/11/2024 3:02 PM EDT Result [facility] Delma Rojo MD POINT OF CARE TEST ENTER/EDIT OR DERABLES Final Result [facility] [address] [place] [address] [phone] * (ABNORMAL) Lipid Panel, Standard (11/18/2023 2:36 PM EDT) Triglycerides 170(H) <150 mg/dL [facility] Comment:Desirable Triglyceri de: less than 150 mg/dLBorderline High Triglyceride 150-199 mg/dLHigh Triglyceride: 200-499 mg/dLVery High Triglyceride: greater than or equal to 5OO mg/dL Cholesterol 218(H) <200 mg/dL [facility] Comment:Desirable Cholestero l: less than 200 mg/dLBorderline High Cholesterol: 200-239 mg/dLHigh Cholesterol: greater than 239 mg/dL LDL Cholesterol Calculated 150(H) <100 mg/dL [facility] Comment:Desirable LDL: less than 100 mg/dLNear Optimal/Above Optimal LDL: 110- 129 mg/dLBorderline High LDL: 130-159 mg/dLHigh LDL: 160-189 mg/dLVery High LDL: greater than or equal to 190 mg/dL HDL Cholesterol 34(L) >40 mg/dL [facility] Comment:Desirable HDL: great er than 40 mg/dL Note: This HDL assay may give artificially low results in patients with liver disease. Blood Venous blood specimen / Unknown 11/18/2023 2:36 PM EDT 11/18/2023 6:00 PM EDT Nata Ferrer MD LAB BLOOD ORDERABLES Final Result [facility] [address] [place] [address] [phone] * HIV 1/2 ANTIGEN/ANTIBODY,FOURTH GENERATION W/RFL (05/28/2021 9:02 AM EST) HIV-1/2 ANTIGEN AND ANTIBODIES, 4TH GENERATION W/ REFLEX NON-REACT DEEPIKA NON-REACT DEEPIKA [facility] Comment: HIV-1 antigen and HIV-1/HIV-2 [...] ? For additional information please refer to http://education.OnLive/faq/OGS281 (This link is being provided for informational/ educational purposes only.) ? The performance of this assay has not been clinically validated in patients less than 2 years old. ?? 05/28/2021 9:02 AM EST Nata Ferrer MD LAB BLOOD ORDERABLES Final Result Performing Organization Address City/State/[facility] Co de Phone Number [facility] [address] from Last 3 Months or Most Recently Relevant to Health Maintenance Insurance MEDIC[place] [address] [place] [id number] [facility] Care Teams Print Inspector Relationship Specialty Start Date End Date Nata Ferrer MD [address] [place] [address] PCP - General Internal Medicine 02/07/19
--- OUTSIDE RECORDS SUMMARY | 2024-08-12 12:30 | XMS_ITS | Encounter Summary ---
Author Organization [employer] Address [address] [facility] 7t [place] [address] Care Team Providers Care Lap Polisher Name Role Phone Nata Ferrer MD Primary Care Provider [phone]- [phone] Reason for Visit * Reason Onset Date Comments Nurse Triage 07/11/2024 Encounter Details Date Type Department Care Team (Late st Contact Info) Description 07/11/2024 Telephone [facility] [address] [place] [address] Nata Ferrer MD [address] [place] [address] Nurse Triage Social History Tobacco Use Types [...] Triage call Pt reports living in a assisted. Pt has been having body pain, especially back and legs. Dizziness has caused Pt to fall at times no injury to body or head. Pt also reports fever at times. Pt reports this has been happening for last 2-3 months. Pt is requesting to see provider at [facility].Pt is taking atorvastatin daily. ASK apt today at 220pm in [facility]. Pt agrees with disposition and insurance [...] worse The caller accepted this outcome. Contact [phone] documented in this encounter Plan of Treatment Not on file documented as of this encounter Visit Diagnoses Not on filedocumented in this encounter Additional Health Concerns Assessment Noted Time PHQ-9 Depression Total Score: 7 11/18/19 24 2:11 PM EDT documented as of this encounter Care Teams Lap Polisher Relationship Specialty Start Date End Date Nata Ferrer MD [address] [place] [phone] PCP - General Internal Medicine 02/07/19 documented as of this encounter
--- OUTSIDE RECORDS SUMMARY | 2024-08-12 12:30 | XMS_ITS | Encounter Summary ---
Author Organization [employer] Address [address] [facility] 7t [place] [address] Care Team Providers Care Poultry Vaccinator Name Role Phone Nata Ferrer MD Primary Care Provider +1 [phone] Encounter Details Date Type Department Care Team (Late st Contact Info) Description 11/21/2023 Orders Only [facility] & PED[facility] [address] [place] [address] Nata Ferrer MD [address] [place] [address] Vitamin D deficiency (Primary Dx) Social History [...] documented as of this encounter Care Teams Poultry Vaccinator Relationship Specialty Start Date End Date Nata Ferrer MD [address] [place] [address] PCP - General Internal Medicine 02/07/19 documented as of this encounter
--- OUTSIDE RECORDS SUMMARY | 2024-08-12 12:31 | XMS_ITS | Encounter Summary ---
Author Organization [employer] Address [address] [facility] 7 [place] [address] Care Team Providers Care Aluminum Can Collector Name Role Phone Nata Ferrer MD Primary Care Provider +1- [phone] Reason for Visit * Reason Comments Med Refill celecoxib (CeleBREX) 200 MG capsule Encounter Details Date Type Department Care Team (Late st Contact Info) Description 09/14/2022 Refill [facility] [address] [place] [address] Nata Ferrer MD [address] [place] [address] Other chronic pain Social History Tobacco Use [...] PM EDT Pt was recently seen at [facility] ED for a fall. Pt was prescribed [...] pain documented in this encounter Care Teams Aluminum Can Collector Relationship Specialty Start Date End Date Nata Ferrer MD [address] [place] [phone] PCP - General Internal Medicine 02/07/19 documented as of this encounter
--- OUTSIDE RECORDS SUMMARY | 2024-08-12 12:31 | XMS_ITS | Encounter Summary ---
Author Organization [employer] Address 75 [facility] 7t [place] [address] Care Team Providers Care Clinical Nurse Educator Name Role Phone Nata Ferrer MD Primary Care Provider +1 [phone] Encounter Details Date Type Department Care Team (Late st Contact Info) Description 07/21/2022 Orders Only [facility] MED & PEDS [address] [place], [place] [phone] Nata Ferrer MD [address] [place] [address] Other chronic pain Social History Tobacco Use [...] EDT) Sodium 138 135 - 145 mmol/L [facility] Potassium 3.9 3.3 - 5.1 mmol/L [facility] Chloride 107 96 - 108 mmol/L [facility] Carbon Dioxide 23 22 - 29 mmol/L [facility] Anion Gap 12 12 - 20 [facility] Urea Nitrogen (BUN) 14 9 - 16 mg/dL [facility] Creatinine, Serum 0.88 0.5 - 1.4 mg/dL [facility] Estimated Glomerular Filt Rate >60 [facility] Comment:NOTE: For -Am erican individuals, multiply the result by 1.210.Chronic Kidney Disease: Estimated GFR < 60 mL/min/1.14x4Kldgfr Kidney Disease: Estimated GFR < 15 mL/min/1.73m2 Glucose Fasting 89 60 - 99 mg/dL [facility] Calcium 9.7 8.4 - 10.2 mg/dL [facility] 01/03/2023 8:42 AM EDT 01/03/2023 2:10 PM EDT Nata Ferrer MD LAB BLOOD ORDERABLES Final Result Performing Organization Address City/State/[facility] Co de Phone Number [facility] [address] [place] [address] [phone] documented in this encounter Visit Diagnoses Diagnosis Other chronic pain documented in this encounter Care Teams Clinical Nurse Educator Relationship Specialty Start Date End Date Nata Ferrer MD [address] [place] [address] PCP - General Internal Medicine 02/07/19 documented as of this encounter
--- OUTSIDE RECORDS SUMMARY | 2024-08-12 12:31 | XMS_ITS | Encounter Summary ---
Author Organization [employer] Address [address] [facility] [address]t [place] [address] Care Team Providers Care Lead Systems Developer Name Role Phone Nata Ferrer MD Primary Care Provider +1- [phone] Reason for Visit * Reason Onset Date Comments requesting 03/30/2022 Encounter Details Date Type Department Care Team ([facility] st Contact Info) Description 03/30/2022 Telephone [facility] [address] [place] [address] Nata Ferrer MD [address] [place] [address] requesting Social History Tobacco Use Types Packs/Day [...] 11:39 AM EST Tc from Karen with [facility] physical therapy. States pt would like in home physical therapy due to nothave transportation Please contact Karen at [phone] documented in this encounter Plan of Treatment Not on file documented as of this encounter Visit Diagnoses Not on filedocumented in this encounter Care Teams Lead Systems Developer Relationship Specialty Start Date End Date aNta Ferrer MD [address] [place] [address] PCP - General Internal Medicine 02/07/19 documented as of this encounter
[2024-08-12 12:34] VITALS: BP 139/95; PULSE 78; RESP 18; TEMP 36.6; O2SAT 98
--- NOTE | 2024-08-12 12:50 | PC.NURSE ---
18gIV placed in the right AC - labs obtained/sent to lab. IVF/medication administered per provider order. effectiveness pending. pt pending CT to be completed at this time.
[2024-08-12] MEDS: Morphine Sulfate 2 MG/ML CARTRIDGE IVPUSH (12:54)
[2024-08-12] MEDS: 0.9 % Sodium Chloride 1,000 ML 999 ML IV (12:54)
[2024-08-12] MEDS: ondansetron HCL 4 MG/2 ML VIAL IVPUSH (12:55)
[2024-08-12 13:04] LABS: MANUAL DIFF FLAG NO
[2024-08-12 13:06] LABS: Basophils Absolute Auto 0.1 X10*3/uL (0.0-0.2); Basophils Percent Auto 0.7 % (0-2); Eosinophils Absolute Auto 0.1 X10*3/uL (0.0-0.4); Hematocrit 48.9 % (42.0-52.0); Hemoglobin 16.3 g/dl (14.0-18.0); Imm Gran Abs Auto 0.06 X10*3/uL (0.00-0.03); Imm Gran Pct Auto 0.6 % (0.0-0.4); Lymphocytes Absolute Auto 3.4 X10*3/uL (1.2-4.9); Mean Corpuscular HGB Conc 33.3 g/dl (31.0-36.0); Mean Corpuscular Volume 93.1 fL (80.0-98.0); Mean Platelet Volume 9.9 fL (9.4-12.4); Monocytes Absolute Auto 0.6 X10*3/uL (0.1-1.2); Monocytes Percent Auto 5.9 % (2-11); Neutrophils Absolute Auto 5.5 x10*3/uL (2.0-8.3); Neutrophils Percent Auto 56.8 % (45-73); Platelet Count 262 X10*3/uL (160-400); Red Blood Count 5.25 X10*6/uL (4.60-5.80); Red Cell Distribution Width 13.1 % (11.0-16.0); White Blood Count 9.7 X10*3/uL (4.8-10.8)
[2024-08-12 13:09] LABS: Influenza A PCR NEGATIVE (Negative); Influenza B PCR NEGATIVE (Negative); Resp Syncy Virus RNA Qual PCR NEGATIVE (Negative); SARS COV2 PCR INHOUSE NEGATIVE (Negative)
[2024-08-12 13:26] LABS: IDNOW Serial# 55D5AD1C
[2024-08-12 13:27] LABS: Strep A Nucleic Acid Negative (Negative)
[2024-08-12 13:28] LABS: Alanine Aminotransferase 30 U/L (0-40); Albumin Level 4.4 g/dL (3.5-5.0); Alkaline Phosphatase 60 U/L (39-117); Anion Gap 15 (12-20); Aspartate Amino Transferase 28 U/L (5-37); Bilirubin Direct 0.1 mg/dL (0.0-0.5); Bilirubin Total 0.4 mg/dL (0.0-1.0); Blood Urea Nitrogen 16 mg/dL (9-16); Calcium 9.6 mg/dL (8.4-10.2); Carbon Dioxide 24 mmol/L (22-29); Chloride 106 mmol/L (96-108); Creatinine Clr Calc Pharmacy 248.8; Estimated Glomerular Filt Rate > 60; Glucose Random 89 mg/dL (60-115); Lipase 24 U/L (8-78); Magnesium 2.1 mg/dL (1.6-2.6); Potassium 4.8 mmol/L (3.3-5.1); Sodium 140 mmol/L (135-145); Total Protein 7.4 g/dL (6.5-8.0)
[2024-08-12] MEDS: iohexoL 350 MG/ML 100 ML INFUS..BTL IV (14:11)
[2024-08-12 14:35] VITALS: BP 126/81; PULSE 68; RESP 18; TEMP 36.2; O2SAT 99
[2024-08-12 14:50] VITALS: BP 138/80; PULSE 77; RESP 13; TEMP 36.4; O2SAT 98
[2024-08-12 15:35] LABS: Appearance Urine Clear; Color Urine Yellow; Glucose Urine UA Negative (Negative); Leukocyte Esterase Urine Negative (Negative); Nitrite Urine Negative (Negative); PH 6.5 (5.0-9.0); Specific Gravity - Urine >= 1.030 (1.005-1.025); Urine Blood Negative (Negative); Urine Ketones Negative (Negative); Urine Protein Negative (Neg-Trace)
[2024-08-12] MEDS: Sennosides/Docusate Sodium TABLET 1 TAB PO (16:39)
[2024-08-12] MEDS: polyethylene glycoL 3350 17 GM POWD.PACK PO (16:39)
--- NOTE | 2024-08-12 16:45 | PC.NURSE ---
pt medicated per provider order. pt provided w/ snacks/drinks upon pt request/provider approval.
--- NOTE | 2024-08-12 16:52 | PC.NURSE ---
report given to half-way staff member. IV access removed. pt d/c'd w/ half-way staff at this time.
[2024-08-12 16:56] VITALS: BP 141/79; PULSE 88; RESP 13; TEMP 36.5; O2SAT 96
[2024-08-12 17:00] VITALS: BP 141/79; PULSE 88; RESP 13; TEMP 36.5; O2SAT 96
== END 2024-08-12 17:00 | disposition home or self-care (01) ==
PROVIDERS: Nurse Practitioner Family; Emergency Provider Emergency Medicine; PCP Internal Medicine
DX: K59.00 Constipation, unspecified (principal); R10.9 Unspecified abdominal pain; R19.7 Diarrhea, unspecified; Z03.818 Encounter for observation for suspected exposure to other biological agents ruled out
CPT/HCPCS: 0241U; 36415; 74177; 80048; 80076; 81003; 83690; 83735; 85025; 87651; 96361; 96374; 96375; 99284; 99285; J2270; J2405; Q9967

== ENCOUNTER → 2024-08-12 12:34 | Outpatient (BNV) | payer MEDICARE, MEDICAID, SELFPAY | PROVIDERS: Emergency Provider Emergency Medicine; PCP Internal Medicine; Visit Provider Radiology Diagnostic Radiology | DX: K80.20 Calculus of gallbladder without cholecystitis without obstruction (principal); R16.2 Hepatomegaly with splenomegaly, not elsewhere classified | CPT/HCPCS: 74177 ==

== ENCOUNTER 2024-12-31 10:43 | Outpatient (REF) | payer MEDICARE, MEDICAID, SELFPAY ==
--- OUTSIDE RECORDS SUMMARY | 2024-12-31 09:30 | XMS_ITS | Encounter Summary ---
Author Organization [employer] Address [address] [facility] 7 [place] [address] Care Team Providers Care Rn Observation Name Role Phone Nata Ferrer MD Primary Care Provider [phone]- [phone] Reason for Visit * Reason Comments Annual Exam Encounter Details Date Type Department Care Team ([facility] Contact Info) Description 12/31/2024 9:30 AM EDT Office Visit [facility] [address] [place] [address] Nata Ferrer MD [address] [place] [address] High thyroid stimulating hormone (TSH) level (Primary Dx); Hypertriglyceridemia; Chronic hepatitis C without hepatic coma (CMS/HCC); Vitamin D deficiency; Screen for STD (sexually transmitted disease); Annual physical exam; Bilateral impacted cerumen; Dental decay; Pruritic intertrigo Social History Tobacco Use Types Packs/Day Years Used Date Smoking Tobacco: Every Day Cigarettes Passive Smoke Exposure: Current Smokeless Tobacco: Never Depression Answer Date Recorded Patient Health Questionnaire-9 Score 18 12/31/2024 Patient Health Questionnaire-9 Score 18 12/31/2024 Last PHQ-9: Questionnaire Data Not on file 0 12/31/2024 Housing Stability Answer Date Recorded What is your housing situation today? I have mare pinon 12/31/[address] you li ve. Do you have problems with any of the following? None of the above 12/31/2024 Food Insecurity Answer Date Recorded Within the past 12 months, y ou worried that your food would run out before you got money to buy more: Never True 12/31/2024 Within the past 12 months,th e food you bought just didn't last and you didn't have enough money to get more: Never True Transportation Answer Date Recorded In the past 12 months, has l ack of transportation kept you from medical appts, meetings, work or from getting things needed for daily living? No 12/31/2024 Utilities Answer Date Recorded In the past 12 months, has t he electric, gas, oil or water company threatened to shut off services in your home? No 12/31/2024 Depression Answer Date Recorded Patient Health Questionnaire-2 Score 6 12/31/2024 Internet Access Answer Date Recorded Internet Access Q1 Yes 12/31/2024 Internet Access Q2 Not on file 12/31/2024 Sex and Gender Information Value Date Recorded Sex Assigned at Male 02/15/2022 10:36 AM EDT Legal Sex Male 10:36 AM EDT Gender Identity Male 02/15/2022 10:36 AM EDT Sexual Orientation Straight 02/15/2022 10 :36 AM EDT documented as of this encounter Last Filed Vital Signs Vital Sign Reading Time Taken Comments Blood Pressure 121/70 12/31/2024 10:01 AM EDT Pulse 80 12/31/2024 10:01 AM EDT Temperature 36.8 C (98.2 F) 12/31/2024 10:01 AM EDT Respiratory Rate 20 12/31/2024 10:01 AM EDT Oxygen Saturation 98% 12/31/2024 10:01 AM EDT Inhaled Oxygen Concentration - - Weight 107 kg (235 lb) 12/31/2024 10:01 AM EDT Height 177.8 cm (5' 10 ) 12/31/2024 10:01 AM EDT Body Mass Index 33.72 12/31/2024 10:01 AM EDT documented in this encounter Functional Status * Over the past 2 weeks, how often have you been bothered by any of the following problems? Question Answer Date of Assessment Author Patient Health Questionnaire-2 Score 6 12/17 10:40 AM EDT Lauren Victor MA * Little interest or pleasure in doing things Answer Date of Assessment Author Nearly every day 12/31/2024 10:40 AM EDT Lauren Victor MA * Feeling down, depressed, or hopeless Answer Date of Assessment Author Nearly every day 12/31/2024 10:40 AM Lauren Sadler MA * Trouble falling or staying asleep, or sleeping too much Answer Date of Assessment Author Not at all 12/31/2024 10:40 AM Azul Sadler MA * Feeling tired or having little energy Answer Date of Assessment Author Nearly every day 12/31/2024 10:40 AM Lauren Sadler MA * Poor appetite or overeating Answer Date of Assessment Author Not at all 12/31/2024 10:40 AM Azul Sadler MA * Feeling bad about yourself - or that you are a failure or have let yourself or your family down Answer Date of Assessment Author Not at all 12/31/2024 10:40 AM Azul Sadler MA * Trouble concentrating on things, such as reading the newspaper or watching television Answer Date of Assessment Author Nearly every day 12/31/2024 10:40 AM Lauren Sadler MA * Moving or speaking so slowly that other people could have noticed? Or the opposite - being so fidgety or restless that you have been moving around a lot more than usual. Answer Date of Assessment Author Nearly every day 12/31/2024 10:40 AM Lauren Sadler MA * Thoughts that you would be better off or hurting yourself in some way Answer Date of Assessment Author Nearly every day 12/31/2024 10:40 AM Lauren Sadler MA * Patient Health Questionnaire-9 Score Answer Date of Assessment Author 18 12/31/2024 10:40 AM Azul Sadler MA * How difficult have these problems made it for you to do your work, take care of things at home, or get along with other people? Answer Date of Assessment Author Somewhat difficult 12/31/2024 10:40 AM Lauren Sadler MA documented as of this encounter Progress Notes * Nata Ferrer MD - 12/31/2024 9:30 AM EDT SUBJECTIVE Paulino Hernandez is a 49 y.o. male who presents for Annual Exam. HPI Information received from [facility] was reviewed. It was reported that Mr. Paulino Hernandez continues to isolate himself in his bedroom for most of the day. He comes out for meals and medication. Occasionally goes outside to smoke, but is still smoking in his bedroom despite it not being permitted. He wascomplaining of low back pain last month. He used diclofenac prescribed 3 times a day which alleviated the pain. Regarding alcohol use, Mr. Paulino Hernandez continues to drink. He had a large bottle ofwhiskey delivered by [employer], which Sachin the warehouse checker was able to confiscate before heconsumed it. He was made aware of the danger of combining alcohol with his current medication. During the evaluation today Mr. Paulino Hernandez denies drinking alcohol for the last 5 months and states that he does not need help in that regard. Has no other complaint during the evaluation today. Problem List[1] Allergies[2] Medications Ordered Prior to Encounter[3] Review of Systems Constitutional: Negative for activity change, appetite change, chills and diaphoresis. HENT: Negative for dental problem, drooling and ear discharge. Eyes: Negative for pain and itching. Respiratory: Negative for cough, choking and chest tightness. Cardiovascular: Negative for palpitations and leg swelling. Gastrointestinal: Negative for abdominal pain, anal bleeding and blood in stool. Endocrine: Negative for cold intolerance and heat intolerance. Genitourinary: Negative for flank pain, frequency and genital sores. Musculoskeletal: Negative for back pain. Neurological: Negative for light-headedness, numbness and headaches. Psychiatric/Behavioral: Negative for agitation, confusion and decreased concentration. OBJECTIVE Vitals: 12/31/24 1001 BP: 121/70 BP Location: Left arm Patient Position: Sitting BP Cuff Size: Adult long Pulse: 80 Resp: 20 Temp: 98.2 ??F (36.8 ??C) TempSrc: Oral SpO2: 98% Weight: 235 lb (107 kg) Height: 5' 10 (1.778 m) Physical Exam Constitutional: General: He is not in acute distress. Appearance: Normal appearance. He is obese. He is not ill-appearing, toxic- appearing or diaphoretic. HENT: Head: Normocephalic. Right Ear: There is impacted cerumen. Left Ear: There is impacted cerumen. Mouth/Throat: Dentition: Gingival swelling and dental caries present. Palate: No mass and lesions. Cardiovascular: Rate and Rhythm: Normal rate. Heart sounds: No murmur heard. No friction rub. No gallop. Pulmonary: Effort: Pulmonary effort is normal. Musculoskeletal: Cervical back: Normal range of motion. Skin: Comments: Dandruff Erythema of the abdominal fold Neurological: Mental Status: He is alert. Assessment/Plan Assessment/Plan Diagnoses and all orders for this visit: High thyroid stimulating hormone (TSH) level Comments: Repeat TSH Patient will be contacted with results for further management. Orders: - CBC auto differential; Future - Comprehensive Metabolic Panel; Future - Lipid Panel, Standard; Future - TSH with Reflex to Free T4; Future - Chlamydia/N. Gonorrhoeae RNA, TMA, Urogenitial - HIV-1/2 Antigen and Antibodies, Fourth Generation, with Reflexes; Future - Hepatitis C Antibody with Reflex to HCV, RNA, Quantitative, Real-Time PCR; Future - RPR (Monitor) with Reflex to Titer; Future - Urinalysis w/reflex microscopic; Future - Trichomonas vaginalis RNA, Qualitative, TMA, Males; Future - Vitamin D, 25-Hydroxy, Total, Immunoassay; Future - Vitamin B12/Folate, Serum Panel; Future Hypertriglyceridemia Comments: Low-cholesterol diet recommended Lipid panel ordered. Patient will be contacted with results. Orders: - CBC auto differential; Future - Comprehensive Metabolic Panel; Future - Lipid Panel, Standard; Future - TSH with Reflex to Free T4; Future - Chlamydia/N. Gonorrhoeae RNA, TMA, Urogenitial - HIV-1/2 Antigen and Antibodies, Fourth Generation, with Reflexes; Future - Hepatitis C Antibody with Reflex to HCV, RNA, Quantitative, Real-Time PCR; Future - RPR (Monitor) with Reflex to Titer; Future - Urinalysis w/reflex microscopic; Future - Trichomonas vaginalis RNA, Qualitative, TMA, Males; Future - Vitamin D, 25-Hydroxy, Total, Immunoassay; Future - Vitamin B12/Folate, Serum Panel; Future Chronic hepatitis C without hepatic coma (CMS/HCC) - CBC auto differential; Future - Comprehensive Metabolic Panel; Future - Lipid Panel, Standard; Future - TSH with Reflex to Free T4; Future - Chlamydia/N. Gonorrhoeae RNA, TMA, Urogenitial - HIV-1/2 Antigen and Antibodies, Fourth Generation, with Reflexes; Future - Hepatitis C Antibody with Reflex to HCV, RNA, Quantitative, Real-Time PCR; Future - RPR (Monitor) with Reflex to Titer; Future - Urinalysis w/reflex microscopic; Future - Trichomonas vaginalis RNA, Qualitative, TMA, Males; Future - Vitamin D, 25-Hydroxy, Total, Immunoassay; Future - Vitamin B12/Folate, Serum Panel; Future Vitamin D deficiency - CBC auto differential; Future - Comprehensive Metabolic Panel; Future - Lipid Panel, Standard; Future - TSH with Reflex to Free T4; Future - Chlamydia/N. Gonorrhoeae RNA, TMA, Urogenitial - HIV-1/2 Antigen and Antibodies, Fourth Generation, with Reflexes; Future - Hepatitis C Antibody with Reflex to HCV, RNA, Quantitative, Real-Time PCR; Future - RPR (Monitor) with Reflex to Titer; Future - Urinalysis w/reflex microscopic; Future - Trichomonas vaginalis RNA, Qualitative, TMA, Males; Future - Vitamin D, 25-Hydroxy, Total, Immunoassay; Future - Vitamin B12/Folate, Serum Panel; Future Screen for STD (sexually transmitted disease) - CBC auto differential; Future - Comprehensive Metabolic Panel; Future - Lipid Panel, Standard; Future - TSH with Reflex to Free T4; Future - Chlamydia/N. Gonorrhoeae RNA, TMA, Urogenitial - HIV-1/2 Antigen and Antibodies, Fourth Generation, with Reflexes; Future - Hepatitis C Antibody with Reflex to HCV, RNA, Quantitative, Real-Time PCR; Future - RPR (Monitor) with Reflex to Titer; Future - Urinalysis w/reflex microscopic; Future - Trichomonas vaginalis RNA, Qualitative, TMA, Males; Future - Vitamin D, 25-Hydroxy, Total, Immunoassay; Future - Vitamin B12/Folate, Serum Panel; Future Annual physical exam Comments: Normal cardiopulmonary exam Patient is to maintain a healthy and balanced diet. Bilateral impacted cerumen Comments: Patient declines a prescription for Debrox. Dental decay Comments: Advised to see his dentist. Appropriate dental hygiene recommended. Pruritic intertrigo Comments: Patient declines treatment. Patient should keep the area dry [1] Patient Active Problem List Diagnosis Abnormal liver function tests High thyroid stimulating hormone (TSH) level Hypertriglyceridemia Viral hepatitis C Vitamin D deficiency [2] No Known Allergies [3] Current Outpatient Medications on File Prior to Visit Medication Sig Dispense Refill Acetaminophen Extra Strength 500 MG tablet TAKE 1 TABLET BY MOUTH EVERY 6 HOURS NEEDED FOR MILD PAIN FOR UP TO 23 DAYS. 90 tablet 0 Acetaminophen Extra Strength 500 MG tablet TAKE 2 TABLETS BY MOUTH 2 TIMES DAILY 120 tablet 1 atorvastatin (Lipitor) 20 MG tablet Take 1 tablet (20 mg) by mouth Once per day. 30 tablet 11 cholecalciferol (Vitamin D-3) 50 MCG (2000 UT) capsule Take 1 capsule (50 mcg) by mouth Once per day. 30 capsule 11 clonazePAM (KlonoPIN) 0.5 MG tablet take 1 tablet by oral route 3 times daily diclofenac (Cataflam) 50 MG tablet TAKE 1 TABLET BY MOUTH 3 TIMES DAILY 90 tablet 2 gabapentin (Neurontin) 800 MG tablet Take 1 tablet by mouth every 8 (eight) hours. hydrOXYzine pamoate (Vistaril) 50 MG capsule lidocaine (Lidoderm) 5 % patch Apply 1 patch topically in the morning. Remove & discard patch within 12 hours or as directed by MD. 30 patch 1 lidocaine (Lidoderm) 5 % patch APPLY 1 PATCH TOPICALLY ONCE PER DAY. REMOVE & DISCARD PATCH WITHIN 12 HOURS OR DIRECTED BY MD. 30 patch 1 LORazepam (Ativan) 1 MG tablet TAKE 1 TABLET BY MOUTH 3 TIMES A DAY NEEDED ..AT LEAST 6 HRS APART.MAX 3 TABS DAILY OLANZapine (ZyPREXA) 10 MG tablet Take 1 tablet by mouth every 8 (eight) hours. paliperidone (Invega) 9 MG 24 hr tablet tiZANidine (Zanaflex) 4 MG tablet TAKE 1 TABLET (4 MG) BY MOUTH EVERY 8 HOURS IF NEEDED FOR MUSCLE SPASMS 30 tablet 2 No current facility-administered medications on file prior to visit. documented in this encounter Plan of Treatment Scheduled Orders Name Type Priority Associated Diagnoses Orde r Schedule CBC auto differential Lab Routine High thyroid stimulating hormone (TSH) level Hypertriglyceridemia Chronic hepatitis C without hepatic coma (CMS/HCC) Vitamin D deficiency Screen for STD (sexually transmitted disease) Expected: 12/31/2024 (Approximate), Expires: 12/31/2025 Comprehensive Metabolic Panel Lab Routine High thyroid stimulating hormone (TSH) level Hypertriglyceridemia Chronic hepatitis C without hepatic coma (CMS/HCC) Vitamin D deficiency Screen for STD (sexually transmitted disease) Expected: 12/31/2024 (Approximate), Expires: 12/31/2025 Lipid Panel, Standard Lab Routine High thyroid stimulating hormone (TSH) level Hypertriglyceridemia Chronic hepatitis C without hepatic coma (CMS/HCC) Vitamin D deficiency Screen for STD (sexually transmitted disease) Expected: 12/31/2024 (Approximate), Expires: 12/31/2025 TSH with Reflex to Free T4 Lab Routine High thyroid stimulating hormone (TSH) level Hypertriglyceridemia Chronic hepatitis C without hepatic coma (CMS/HCC) Vitamin D deficiency Screen for STD (sexually transmitted disease) Expected: 12/31/2024 (Approximate), Expires: 12/31/2025 Chlamydia/N. Gonorrhoeae RNA, TMA, Urogenitial Microbiology Routine High thyroid stimulating hormone (TSH) level Hypertriglyceridemia Chronic hepatitis C without hepatic coma (CMS/HCC) Vitamin D deficiency Screen for STD (sexually transmitted disease) Ordered: 12/31/2024 HIV-1/2 Antigen and Antibodies, Fourth Generation, with Reflexes Lab Routine High thyroid stimulating hormone (TSH) level Hypertriglyceridemia Chronic hepatitis C without hepatic coma (CMS/HCC) Vitamin D deficiency Screen for STD (sexually transmitted disease) Expected: 12/31/2024 (Approximate), Expires: 12/31/2025 Hepatitis C Antibody with Reflex to HCV, RNA, Quantitative, Real-Time PCR Lab Routine High thyroid stimulating hormone (TSH) level Hypertriglyceridemia Chronic hepatitis C without hepatic coma (CMS/HCC) Vitamin D deficiency Screen for STD (sexually transmitted disease) Expected: 12/31/2024, Expires: 12/31/2025 RPR (Monitor) with Reflex to Titer Lab Routine High thyroid stimulating hormone (TSH) level Hypertriglyceridemia Chronic hepatitis C without hepatic coma (CMS/HCC) Vitamin D deficiency Screen for STD (sexually transmitted disease) Expected: 12/31/2024, Expires: 12/31/2025 Urinalysis w/reflex microscopic Lab Routine High thyroid stimulating hormone (TSH) level Hypertriglyceridemia Chronic hepatitis C without hepatic coma (CMS/HCC) Vitamin D deficiency Screen for STD (sexually transmitted disease) Expected: 12/31/2024, Expires: 12/31/2025 Trichomonas vaginalis RNA, Qualitative, TMA, Males Lab Routine High thyroid stimulating hormone (TSH) level Hypertriglyceridemia Chronic hepatitis C without hepatic coma (CMS/HCC) Vitamin D deficiency Screen for STD (sexually transmitted disease) Expected: 12/31/2024, Expires: 12/31/2025 Vitamin D, 25-Hydroxy, Total, Immunoassay Lab Routine High thyroid stimulating hormone (TSH) level Hypertriglyceridemia Chronic hepatitis C without hepatic coma (CMS/HCC) Vitamin D deficiency Screen for STD (sexually transmitted disease) Expected: 12/31/2024 (Approximate), Expires: 12/31/2025 Vitamin B12/Folate, Serum Panel Lab Routine High thyroid stimulating hormone (TSH) level Hypertriglyceridemia Chronic hepatitis C without hepatic coma (CMS/HCC) Vitamin D deficiency Screen for STD (sexually transmitted disease) Expected: 12/31/2024, Expires: 12/31/2025 documented as of this encounter Visit Diagnoses Diagnosis High thyroid stimulating hormone (TSH) level- Primary Hypertriglyceridemia Pure hyperglyceridemia Chronic hepatitis C without hepatic coma (CMS/HCC) Vitamin D deficiency Screen for STD (sexually transmitted disease) Screening examination for venereal disease Annual physical exam Routine general medical examination at a health care facility Bilateral impacted cerumen Impacted cerumen Dental decay Unspecified dental caries Pruritic intertrigo documented in this encounter Additional Health Concerns Assessment Noted Time PHQ-9 Depression Total Score: 18 025 10:40 AM EDT documented as of this encounter Care Teams Rn Observation Relationship Specialty Start Date End Date Nata Ferrer MD [address] [place] [id number] PCP - General Internal Medicine 02/07/19 documented as of this encounter
--- OUTSIDE RECORDS SUMMARY | 2024-12-31 13:55 | XMS_ITS | Encounter Summary ---
Author Organization [employer] Address [address] [facility] 7t [place] [address] Care Team Providers Care Study Manager Name Role Phone Nata Ferrer MD Primary Care Provider [phone] Reason for Visit * Reason Comments Med Refill Encounter Details Date Type Department Care Team ([facility] Contact Info) Description 12/29/2024 Refill [facility] PEDS [address] [place] [address] Nata Ferrer MD [address] [place] [address] Other chronic back pain; Other chronic pain Social History Tobacco Use [...] AM EDT documented as of this encounter Functional Status * Over the past 2 weeks, how often have you been bothered by any of the following problems? Question Answer Date of Assessment Author Patient Health Questionnaire-2 Score 6 12/17 10:40 AM Lauren Sadler MA * Little interest or pleasure in doing things Answer Date of Assessment Author Nearly every day 12/31/2024 10:40 AM Lauren Sadler MA * Feeling down, depressed, or hopeless [...] Sadler MA documented as of this encounter Plan of Treatment Not on file documented as of this encounter Visit Diagnoses Diagnosis Other chronic back pain Other chronic pain documented in this encounter Additional Health Concerns Assessment Noted Time PHQ-9 Depression Total Score: 7 11/18/19 24 2:11 PM EDT documented as of this encounter Care Teams Study Manager Relationship Specialty Start Date End Date Nata Ferrer MD [address] [place] [id number] PCP - General Internal Medicine 02/07/19 documented as of this encounter
--- OUTSIDE RECORDS SUMMARY | 2024-12-31 13:55 | XMS_ITS | Encounter Summary ---
Author Organization [employer] Address [address] [facility] 7 [place] [address] Care Team Providers Care Machine Slat Basket Maker Name Role Phone Nata Ferrer MD Primary Care Provider [phone] Reason for Visit * Reason Onset Date Comments Chart Prep 12/28/2024 Encounter Details Date Type Department Care Team ([facility] st Contact Info) Description 12/28/2024 Telephone [facility] P[facility]S [address] [place] [address] Nata Ferrer MD [address] [place] [address] Chart Prep Social History Tobacco Use Types Packs/Day Years [...] encounter Miscellaneous Notes * Telephone Encounter - Tia Ball MA - 12/28/2024 12:04 PM EDT Chart Prep Labs: not done Images: done Referrals: complete Vaccines due: due Screenings: colonoscopy Overdue care gaps: SBIRT, SDOH, PHQ-9, and Disability screen documented in this encounter Plan of Treatment Not on file documented as of this encounter Visit Diagnoses Not on filedocumented in this encounter Additional Health Concerns Assessment Noted Time PHQ-9 Depression Total Score: 7 11/18/19 24 2:11 PM EDT documented as of this encounter Care Teams Machine Slat Basket Maker Relationship Specialty Start Date End Date Nata Ferrer MD [address] [place] [address] PCP - General Internal Medicine 02/07/19 documented as of this encounter
--- OUTSIDE RECORDS SUMMARY | 2024-12-31 13:55 | XMS_ITS | Encounter Summary ---
Author Organization [employer] Address [address] [facility] [address] [place] [address] Care Team Providers Care Marble Worker Name Role Phone Nata Ferrer MD Primary Care Provider [phone] Encounter Details Date Type Department Care Team (Latest Contact Info) Description 12/31/2024 Travel Social History Tobacco Use Types Packs/Day Years [...] Health Questionnaire-2 Score 6 12/17 10:40 AM MARTINEZT Lauren Victor MA * Little interest or [...] 10:40 AM EDT Lauren Victor MA * Patient Health Questionnaire-9 Score Answer Date of Assessment Author 18 12/31/2024 10:40 AM EDT Azul Victor MA * How difficult have these problems made it for you to do your work, take care of things at home, or get along with other people? Answer Date of Assessment Author Somewhat difficult 12/31/2024 10:40 AM EDT Lauren Victor MA documented as of this encounter Plan of Treatment Not on file documented as of this encounter Visit Diagnoses Not on filedocumented in this encounter Additional Health Concerns Assessment Noted Time PHQ-9 Depression Total Score: 025 10:40 AM EDT documented as of this encounter Care Teams Marble Worker Relationship Specialty Start Date End Date Nata Ferrer MD [address] [place] [address] [place] [id number] PCP - General Internal Medicine 02/07/19 documented as of this encounter
--- OUTSIDE RECORDS SUMMARY | 2024-12-31 13:55 | XMS_ITS | Encounter Summary ---
Author Organization [employer] Address [address] [facility] 7t [place] [address] Care Team Providers Care Stenographic Court Reporter Name Role Phone Nata Ferrer MD Primary Care Provider [phone] Reason for Visit * Reason Comments Med Refill Encounter Details Date Type Department Care Team ([facility] Contact Info) Description 10/31/2024 Refill [facility] MED & PEDS [address] [place] [address] Nata Ferrer MD [address] [place] [address] Vitamin D deficiency; Other chronic back pain Social History Tobacco Use Types Packs/Day [...] this encounter Visit Diagnoses Diagnosis Vitamin D deficiency Other chronic back pain documented in this encounter Additional Health Concerns Assessment Noted Time PHQ-9 Depression Total Score: 7 11/18/19 24 2:11 PM EDT documented as of this encounter Care Teams Stenographic Court Reporter Relationship Specialty Start Date End Date Nata Ferrer MD [address] [place] [id number] PCP - General Internal Medicine 02/07/19 documented as of this encounter
--- OUTSIDE RECORDS SUMMARY | 2024-12-31 13:56 | XMS_ITS | Encounter Summary ---
Author Organization [employer] Address [address] [facility] 7[address] [place] [address] Care Team Providers Care Molecular Technologist Name Role Phone Nata Ferrer MD Primary Care Provider [phone] Encounter Details Date Type Department Care Team ([facility] st Contact Info) Description 09/12/2024 Orders Only [facility] [address] [place] [address] ProviderAilyn MD Social History Tobacco Use Types Packs/Day Years [...] Procedure Name Priority Date/Time Associated Diagnosis Comments ECG 12-LEAD Routine 09/11/2024 11:13 AM EDT documented in this encounter Results * ECG 12 lead (09/11/2024 11:13 AM EDT) us Historical Provider ECG ORDERABLES Final Res ult documented in this encounter Visit Diagnoses Not on filedocumented in this encounter Additional Health Concerns Assessment Noted Time PHQ-9 Depression Total Score: 7 11/18/19 24 2:11 PM EDT documented as of this encounter Care Teams Molecular Technologist Relationship Specialty Start Date End Date Nata Ferrer MD [address] [place] [id number] PCP - General Internal Medicine 02/07/19 documented as of this encounter
--- OUTSIDE RECORDS SUMMARY | 2024-12-31 13:56 | XMS_ITS | Encounter Summary ---
Author Organization [employer] Address [address] [facility] 7[address] [place] [address] Care Team Providers Care Check Embosser Name Role Phone Nata Ferrer MD Primary Care Provider [phone] Encounter Details Date Type Department Care Team ([facility] st Contact Info) Description 08/29/2024 Orders Only [facility] [address] [place] [address] ProviderAilyn MD Social History Tobacco Use Types [...] Date/Time Associated Diagnosis Comments ECG 12-LEAD Routine 08/28/2024 11:47 AM EDT VASC US LOWER EXTREMITY VENOUS DUPLEX BILATERAL Routine 08/28/2024 8:52 AM EDT documented in this encounter Results * ECG 12 lead (08/28/2024 11:47 AM EDT) us Historical Provider ECG ORDERABLES Final Res ult * VASC US Lower Extremity Venous Duplex Bilateral (08/28/2024 8:52 AM EDT) us Historical Provider CV VASCULAR PROCEDURES Fi nal Result documented in this encounter Visit Diagnoses Not on filedocumented in this encounter Additional Health Concerns Assessment Noted Time PHQ-9 Depression Total Score: 7 11/18/19 24 2:11 PM EDT documented as of this encounter Care Teams Check Embosser Relationship Specialty Start Date End Date Nata Ferrer MD [address] [place] [id number] PCP - General Internal Medicine 02/07/19 documented as of this encounter
--- OUTSIDE RECORDS SUMMARY | 2024-12-31 13:56 | XMS_ITS | Encounter Summary ---
Author Organization [employer] Address [address] [facility] 7t [place] [address] Care Team Providers Care Nursing Home Director Name Role Phone Nata Ferrer MD Primary Care Provider [phone] Encounter Details Date Type Department Care Team ([facility] st Contact Info) Description 11/21/2023 Orders Only [facility] [address] [place] [address] Nata Ferrer MD [address] [place] [address] Vitamin D deficiency (Primary Dx) Social History [...] documented as of this encounter Care Teams Nursing Home Director Relationship Specialty Start Date End Date Nata Ferrer MD [address] [place] [id number] PCP - General Internal Medicine 02/07/19 documented as of this encounter
--- OUTSIDE RECORDS SUMMARY | 2024-12-31 13:56 | XMS_ITS | Encounter Summary ---
Author Organization [employer] Address [address] [facility] 7 [place] [address] Care Team Providers Care Press Breaker Name Role Phone Nata Ferrer MD Primary Care Provider [phone]- [phone] Reason for Visit * Reason Onset Date Comments Nurse Triage 07/11/2024 Encounter Details Date Type Department Care Team (Late st Contact Info) Description 07/11/2024 Telephone [facility] [address] [place] [address] Nata Ferrer MD [address] [place] [address] Nurse Triage Social History Tobacco Use Types [...] Triage call Pt reports living in a residential. Pt has been having body pain, especially back and legs. Dizziness has caused Pt to fall at times no injury to body or head. Pt also reports fever at times. Pt reports this has been happening for last 2-3 months. Pt is requesting to see provider at [facility].Pt is taking atorvastatin daily. ASK apt today at 220pm in [facility]. Pt agrees with disposition and insurance is [...] worse The caller accepted this outcome. Contact [phone] documented in this encounter Plan of Treatment Not on file documented as of this encounter Visit Diagnoses Not on filedocumented in this encounter Additional Health Concerns Assessment Noted Time PHQ-9 Depression Total Score: 7 11/18/19 24 2:11 PM EDT documented as of this encounter Care Teams Press Breaker Relationship Specialty Start Date End Date Nata Ferrer MD [address] [place] [id number] PCP - General Internal Medicine 02/07/19 documented as of this encounter
--- OUTSIDE RECORDS SUMMARY | 2024-12-31 13:56 | XMS_ITS | Encounter Summary ---
Author Organization [employer] Address [address] [facility] [address] [place] [address] Care Team Providers Care Contract Technician Name Role Phone Nata Ferrer MD Primary Care Provider [phone] Reason for Visit * Reason Onset Date Comments requesting 03/30/2022 Encounter Details Date Type Department Care Team ([facility] st Contact Info) Description 03/30/2022 Telephone [facility] [address] [place] [address] Nata Ferrer MD [address] [place] [address] requesting Social History Tobacco Use Types Packs/Day [...] 11:39 AM EST Tc from Karen with [facility] [place] physical therapy. States pt would like in home physical therapy due to nothave transportation Please contact Karen at [phone] documented in this encounter Plan of Treatment Not on file documented as of this encounter Visit Diagnoses Not on filedocumented in this encounter Care Teams Contract Technician Relationship Specialty Start Date End Date Nata Ferrer MD [address] [place] [phone] PCP - General Internal Medicine 02/07/19 documented as of this encounter
--- OUTSIDE RECORDS SUMMARY | 2024-12-31 13:56 | XMS_ITS | Encounter Summary ---
Author Organization [employer] Address [address] [place] [address] Care Team Providers Care Jewish History Professor Name Role Phone Nata Ferrer MD Primary Care Provider [phone] Reason for Visit * Reason Comments Med Refill celecoxib (CeleBREX) 200 MG capsule Encounter Details Date Type Department Care Team (Late st Contact Info) Description 09/14/2022 Refill [facility] [address] [place] [address] Nata Ferrer MD [address] [place] [address] Other chronic pain Social History Tobacco Use [...] PM EDT Pt was recently seen at [facility] ED for a fall. Pt was [...] pain documented in this encounter Care Teams Jewish History Professor Relationship Specialty Start Date End Date Nata Ferrer MD [address] [place] [id number] PCP - General Internal Medicine 02/07/19 documented as of this encounter
--- OUTSIDE RECORDS SUMMARY | 2024-12-31 13:56 | XMS_ITS | Clinical Summary ---
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 Max Daily Amount: 3 mg 5 Active haloperidoL (HALDOL) 5 mg tablet Take 1 tablet (5 mg total) by mouth 2 (two) times a day. 5 Active propranoloL (INDERAL) 10 mg tablet Take 1 tablet (10 mg total) by mouth 2 (two) times a day. 5 Active paliperidone (INVEGA) 1.5 mg 24 hr tablet Take 1 tablet (1.5 mg total) by mouth 1 (one) time each day in the morning. 5 Active paliperidone (INVEGA) 9 mg 24 hr tablet Take 1 tablet (9 mg total) by mouth 1 (one) time each day in the morning. Active gabapentin (NEURONTIN) 800 mg tablet Take 1 tablet (800 mg total) by mouth 3 (three) times a day. Active gabapentin (NEURONTIN) 100 mg capsule Take 2 capsules (200 mg total) by mouth 2 (two) times a day. 5 Active lidocaine (LIDODERM) 5 % patch Apply 1 patch topically 1 (one) time each day. Active acetaminophen (TYLENOL) 500 mg tablet Take 2 tablets (1,000 mg total) by mouth 2 times daily. 3 Active hydrOXYzine pamoate (VISTARIL) 50 mg capsule Take 1 capsule (50 mg total) by mouth 3 (three) times a day. Active tiZANidine (ZANAFLEX) 4 mg tablet Take 1 tablet (4 mg total) by mouth 3 (three) times a day if needed for muscle spasms. Active OLANZapine (ZyPREXA) 10 mg tablet Take 1 tablet (10 mg total) by mouth 3 (three) times a day. Active diclofenac (CATAFLAM) 50 mg tablet Take 1 tablet (50 mg total) by mouth 3 (three) times a day. Active Encounters Date Type Department Care Team Description 10/15/2024 9:03 AM EDT - 10/15/2024 6:59 PM EDT Emergency [facility] Emergency [address] [place] [id number] Sanju Silva DO Current moderate episode of major depressive disorder, unspecified whether recurrent (CMS/HCC V24, CMS/HCC V28) (Primary Dx); Myalgia; General weakness; Generalized abdominal pain Discharge Disposition: Home or Self Care from Last 3 Months Social History Tobacco Use Types Packs/Day Years Used Date Smoking Tobacco: Never Assessed Sex and Gender Information Value Date Recorded Sex Assigned at Male 08/28/2024 2:28 PM EDT Legal Sex Male 4:02 PM EST Gender Identity Male 08/28/2024 2:28 PM EDT Sexual Orientation Straight 08/28/2024 2: 28 PM EDT Last Filed Vital Signs Vital Sign Reading Time Taken Comments Blood Pressure 130/83 10/15/2024 5:14 PM EDT Pulse 76 10/15/2024 5:14 PM EDT Temperature 36.4 C (97.5 F) 10/15/2024 5:14 PM EDT Respiratory Rate 18 10/15/2024 5:14 PM EDT Oxygen Saturation 98% 10/15/2024 5:14 PM EDT Inhaled Oxygen Concentration - - Weight 113 kg (250 lb) 09/11/2024 12:19 AM EDT Height 175.3 cm (5' 9 ) 09/11/2024 12:19 AM EDT Body Mass Index 36.92 09/11/2024 12:19 AM EDT Plan of Treatment Health Maintenance Due Date Last Done Comments DTaP,Tdap,and Td Vaccines (1 - Tdap) 10/11/1994 Hepatitis A Vaccines (1 of 2 - Risk 2-dose series) 10/11/1994 Hepatitis B Vaccines (1 of 3 - 19+ 3-dose series) 10/11/1994 Colorectal Cancer Screening: Colonoscopy 03/17/2022 Hepatitis C Screening 03/17/2022 Medicare Annual Wellness Visit 03/17/2022 Social Influencers of Health Screening 03/17/2022 Depression Screening 04/18/2024 COVID-19 Vaccine (4 - 2024-2 6 season) 2024 04/16/2021, 06/25/2020, 06/04/2020 Influenza Vaccine (#1) 2024 Cholesterol Screening (Lipid Panel) 11/17/2028 11/18/2023 HIV Screening Completed 05/28/2021 Pneumococcal Vaccine: Pediatrics (0 to 5 Years) and At-Risk Patients (6 to 49 Years) Completed 11/18/2023 HIB Vaccines Aged Out [...] to complete this topic RSV Immunization Patients Under 20 months Aged Out No longer eligible b ased on patient's age to complete this topic Varicella Vaccines Aged Out No longer eligible based on patient's age to complete this topic Procedures Procedure Name Priority Date/Time Associated Diagnosis Comments ECG ANNOTATED 10/16/2024 CT ABDOMEN PELVIS W CONTRAST STAT 10/15/2024 2:42 PM EDT XR CHEST 2 VIEWS STAT 10/15/2024 1:09 PM EDT RESPIRATORY VIRUS PANEL MOLECULAR STUDY STAT 10/15/2024 12:24 PM EDT ECG 12-LEAD STAT 10/15/2024 9:36 AM EDT DOHERTY URINE CULTURE TUBE STAT 10/15/2024 9:35 AM EDT URINALYSIS WITH REFLEX MICROSCOPIC AND CULTURE STAT 10/15/2024 9:35 AM EDT CBC WITH AUTO DIFFERENTIAL STAT 10/15/2024 9:35 AM EDT URINALYSIS WITH REFLEX MICROSCOPIC AND CULTURE STAT 10/15/2024 9:35 AM EDT METHADONE SCREEN, URINE STAT 10/15/2024 9:35 AM EDT PHENCYCLIDINE, URINE STAT 10/15/2024 9:35 AM EDT BUPRENORPHINE SCREEN, URINE STAT 10/15/2024 9:35 AM EDT DRUG ABUSE SCREEN 8A PANEL, URINE STAT 10/15/2024 9:35 AM EDT SALICYLATE LEVEL STAT 10/15/2024 9:35 AM EDT ACETAMINOPHEN LEVEL STAT 10/15/2024 9 :35 AM EDT ETHANOL STAT 10/15/2024 9:35 AM EDT LIPASE STAT 10/15/2024 9:35 AM EDT COMPREHENSIVE METABOLIC PANEL STAT 10/15/2024 9:35 AM EDT CBC AND DIFFERENTIAL STAT 10/15/2024 9:35 AM EDT from Last 3 Months Results * ECG-Annotated (10/16/2024) us Provider Onbase MD ECG ORDERABLES Final Result * CT Abdomen Pelvis w Contrast (10/15/2024 2:42 PM EDT) Anatomical Region Laterality Modality Body Computed Tomogra phy 10/15/2024 3:05 PM EDT Impressions 10/15/2024 3:09 PM EDT Findings can be seen in setting of gastroenteritis. Otherwise no acute infectious or inflammatory process. -------- FINAL REPORT -------- Dictated By: Daily Navarro Dictated Date: 10/15/2024 15:05 ET Assigned Physician: Daily Navarro Reviewed and Electronically Signed By: Daily Navarro Signed Date: 10/15/2024 15:09 ET Workstation ID: [id number] Transcribed By: Self Edit Transcribed Date: 10/15/2024 15:05 ET Narrative 10/15/2024 3:09 PM EDT PROCEDURE: CT ABDOMEN/PELVIS WITH CONTRAST INDICATION: Abdominal pain, acute, no prior medical history TECHNIQUE: CT of the abdomen and pelvis following the intravenous administration of 90cc Isovue 370. Multiplanar reformats. The examination was performed utilizing dose reduction techniques. Total DLP 1363 COMPARISON: No priors available. FINDINGS: LOWER THORAX: Lung bases are clear. HEPATOBILIARY: Hepatic steatosis. Cholelithiasis. SPLEEN: No focal lesion. PANCREAS: No focal mass or ductal dilatation. ADRENALS: No nodules. KIDNEYS/URETERS: No hydronephrosis, stones, or solid mass. PELVIC ORGANS/BLADDER: Unremarkable. PERITONEUM / RETROPERITONEUM: No ascites or free air. No retroperitoneal lymphadenopathy. VESSELS: Scattered atherosclerotic calcifications throughout the aorta and its major branches. No aneurysm. GI TRACT: No bowel distention or wall thickening. Fluid within the large and small bowel is nonspecific but can be seen in setting of gastroenteritis. BONES AND SOFT TISSUES: Remote displaced right rib fractures. Presumed enostosis left iliac wing. Procedure Note Daily Navarro MD - 10/15/2024 PROCEDURE: CT ABDOMEN/PELVIS WITH CONTRAST INDICATION: Abdominal pain, acute, no prior medical history TECHNIQUE: CT of the abdomen and pelvis following the intravenousadministration of 90cc Isovue 370. Multiplanar reformats. The examinationwas performed utilizing dose reduction techniques. Total DLP 1363 COMPARISON: No priors available. FINDINGS: LOWER THORAX: Lung bases are clear. HEPATOBILIARY: Hepatic steatosis. Cholelithiasis. SPLEEN: No focal lesion. PANCREAS: No focal mass or ductal dilatation. ADRENALS: No nodules. KIDNEYS/URETERS: No hydronephrosis, stones, or solid mass. PELVIC ORGANS/BLADDER: Unremarkable. PERITONEUM / RETROPERITONEUM: No ascites or free air. No retroperitoneallymphadenopathy. VESSELS: Scattered atherosclerotic calcifications throughout the aorta andits major branches. No aneurysm. GI TRACT: No bowel distention or wall thickening. Fluid within the largeand small bowel is nonspecific but can be seen in setting ofgastroenteritis. BONES AND SOFT TISSUES: Remote displaced right rib fractures. Presumedenostosis left iliac wing. IMPRESSION: Findings can be seen in setting of gastroenteritis. Otherwise no acuteinfectious or inflammatory process. -------- FINAL REPORT -------- Dictated By: Daily Navarro Dictated Date: 10/15/2024 15:05 ET Assigned Physician: Daily Navarro Reviewed and Electronically Signed By: Daily Navarro Signed Date: 10/15/2024 15:09 ET Workstation ID: [id number] Transcribed By: Self Edit Transcribed Date: 10/15/2024 15:05 ET Sanju Silva DO IMG CT PROCEDURES Final Result * XR Chest 2 Views (10/15/2024 1:09 PM EDT) Anatomical Region Laterality Modality Body Radiographic Keyla ging 10/15/2024 1:27 PM EDT Impressions 10/15/2024 1:27 PM EDT FINDINGS/IMPRESSION: Normal heart size without congestive heart failure. No consolidation or effusion. Stable right lower thoracic rib cage fracture deformity. -------- FINAL REPORT -------- Dictated By: Daily Navarro Dictated Date: 10/15/2024 13:27 ET Assigned Physician: Daily Navarro Reviewed and Electronically Signed By: Daily Navarro Signed Date: 10/15/2024 13:27 ET Workstation ID: [id number] Transcribed By: Self Edit Transcribed Date: 10/15/2024 13:27 ET Narrative 10/15/2024 1:27 PM EDT XR CHEST 2 VIEWS INDICATION: gen weakness TECHNIQUE: XR CHEST 2 VIEWS COMPARISON: No priors available. Procedure Note Daily Navarro MD - 10/15/2024 XR CHEST 2 VIEWS INDICATION: gen weakness TECHNIQUE: XR CHEST 2 VIEWS COMPARISON: No priors available. IMPRESSION: FINDINGS/IMPRESSION: Normal heart size without congestive heart failure.No consolidation or effusion. Stable right lower thoracic rib cagefracture deformity. -------- FINAL REPORT -------- Dictated By: Daily Navarro Dictated Date: 10/15/2024 13:27 ET Assigned Physician: Daily Navarro Reviewed and Electronically Signed By: Daily Navarro Signed Date: 10/15/2024 13:27 ET Workstation ID: [id number] Transcribed By: Self Edit Transcribed Date: 10/15/2024 13:27 ET Sanju Silva DO IMG XR PROCEDURES Final Result * Respiratory virus panel molecular study (10/15/2024 12:24 PM EDT) Adenovirus Detection by PCR Not Detected Not Detected LAB MICROBIOLOGY METHOD 10/15/2024 1:37 PM EDT [facility] Influenza A PCR Not Detected Not Detected LAB MICROBIOLOGY METHOD 10/15/2024 1:37 PM EDT [facility] Influenza B PCR Not Detected Not Detected LAB MICROBIOLOGY METHOD 10/15/2024 1:37 PM EDT [facility] Coronavirus 229E Not Detected Not Detected LAB MICROBIOLOGY METHOD 10/15/2024 1:37 PM EDT [facility] Coronavirus HKU1 Not Detected Not Detected LAB MICROBIOLOGY METHOD 10/15/2024 1:37 PM EDT [facility] Coronavirus OC43 Not Detected Not Detected LAB MICROBIOLOGY METHOD 10/15/2024 1:37 PM EDT [facility] Coronavirus NL63 Not Detected Not Detected LAB MICROBIOLOGY METHOD 10/15/2024 1:37 PM EDT [facility] Parainfluenza Virus 1 Not Detected Not Detected LAB MICROBIOLOGY METHOD 10/15/2024 1:37 PM EDT [facility] Parainfluenza Virus 2 Not Detected Not Detected LAB MICROBIOLOGY METHOD 10/15/2024 1:37 PM EDT [facility] Parainfluenza Virus 3 Not Detected Not Detected LAB MICROBIOLOGY METHOD 10/15/2024 1:37 PM EDT [facility] Parainfluenza Virus 4 Not Detected Not Detected LAB MICROBIOLOGY METHOD 10/15/2024 1:37 PM EDT [facility] RSV PCR Not Detected Not Detected LAB MICROBIOLOGY METHOD 10/15/2024 1:37 PM EDT [facility] Human Metapneumovirus A and B Not Detected Not Detected LAB MICROBIOLOGY METHOD 10/15/2024 1:37 PM EDT [facility] Rhinovirus/Entero virus Not Detected Not Detected LAB MICROBIOLOGY METHOD 10/15/2024 1:37 PM EDT [facility] Bordetella pertussis Not Detected Not Detected LAB MICROBIOLOGY METHOD 10/15/2024 1:37 PM EDT [facility] Bordetella parapertussis Not Detected Not Detected LAB MICROBIOLOGY METHOD 10/15/2024 1:37 PM EDT [facility] Mycoplasma pneumo by PCR Not Detected Not Detected LAB MICROBIOLOGY METHOD 10/15/2024 1:37 PM EDT [facility] Chlamydia pneumoniae Not Detected Not Detected LAB MICROBIOLOGY METHOD 10/15/2024 1:37 PM EDT [facility] SARS COV-2 Not Detected Not Detected LAB MICROBIOLOGY METHOD 10/15/2024 1:37 PM EDT [facility] Swab Both anterior nares / Unknown Non-blood Collection / Unknown 10/15/2024 12:24 PM EDT 10/15/2024 12:38 PM EDT [facility] - 10/15/2024 1:37 PM EDT Testing was performed using the [employer] Respiratory Pathogen PCR Assay. All results must be correlated with the clinical findings. Results should not be used as the sole basis for diagnosis. False Negative results may occur from the presence of sequence variants in the region targeted by the assay or the presence of inhibitors. Results may be affected by concurrent antiviral/antimicrobial therapy or levels of organisms that are below the limit of detection. Sanju Silva DO LAB MICROBIOLOGY - GENERAL ORD ERABLES Final Result Performing Organization Address [facility] Co de Phone Number [facility] [address] [place] [address], [place] [phone] * ECG 12 lead (10/15/2024 9:36 AM EDT) [facility] Ventricular Rate ECG 111 BPM [facility] Atrial Rate 111 BPM [facility] P-R Interval 128 ms GEM[facility] QRS Duration 84 ms GEMUSE Q-T Interval 326 ms GEMUSE QTc 443 ms GEMUSE P Wave [place] 62 degrees GEMUSE R [place] 43 degrees GEMUSE T [place] 50 degrees GEMUSE ECG Interpretation Sinus tachycardia Otherwise normal ECG When compared with ECG of 11-SEP-2024 01:19, Nonspecific T wave abnormality no longer evident in Inferior leads T wave inversion no longer evident in Anterior leads Confirmed by Kd MAYA JAMES ([id number]) on 10/15/2024 6:13:52 PM GEMUSE 10/15/2024 9:36 AM EDT 10/15/2024 6:13 PM EDT Sanju Silva DO ECG ORDERABLES Final Result Performing Organization Address [facility] de Phone Number GEM[facility] * (ABNORMAL) Urinalysis with reflex microscopic and culture (10/15/2024 9:35 AM EDT) [facility] Specific [place] Urine 1.017 1.003 - 1.030 LAB URINALYSIS - AUTOMATED METHOD 10/15/2024 9:59 AM EDT [facility] pH, Urine 6.0 5.0 - 8.0 pH LAB URINALYSIS - AUTOMATED METHOD 10/15/2024 9:59 AM EDT [facility] Leukocytes, Urine Negative Negative LAB URINALYSIS - AUTOMATED METHOD 10/15/2024 9:59 AM EDT [facility] Nitrite, Urine Negative Negative LAB URINALYSIS - AUTOMATED METHOD 10/15/2024 9:59 AM EDT [facility] Protein, Urine Negative <=Trace mg/dL LAB URINALYSIS - AUTOMATED METHOD 10/15/2024 9:59 AM EDT [facility] Glucose, Urine Negative Negative mg/dL LAB URINALYSIS - AUTOMATED METHOD 10/15/2024 9:59 AM EDT [facility] Ketones, Urine 15(A) Negative mg/dL LAB URINALYSIS - AUTOMATED METHOD 10/15/2024 9:59 AM EDT [facility] Urobilinogen, Urine 1.0 0.2 - 1.0 mg/dL LAB URINALYSIS - AUTOMATED METHOD [facility]24 [facility] Bilirubin, Urine Negative Negative LAB URINALYSIS - AUTOMATED METHOD 10/15/2024 [facility] Blood, Urine Negative Negative LAB URINALYSIS - AUTOMATED METHOD 10/15/2024 9:59 AM [facility] Urine Urine specimen obtained by clean catch procedure / Unknown Non-blood Collection / Unknown 10/15/2024 9:35 AM EDT 10/15/2024 9:53 AM EDT us Sanju Silva DO LAB URINE ORDERABLES Final Res ult [facility] [address] [place] [address], [place] [phone] * Doherty urine culture tube (10/15/2024 9:35 AM EDT) Extra Tube Hold for add-ons. 10/15/2024 11:01 AM EDT [facility] Comment:Auto resulted. Urine Urine specimen obtained by clean catch procedure / Unknown Non-blood Collection / Unknown 10/15/2024 9:35 AM EDT 10/15/2024 9:53 AM EDT us Sanju Silva DO LAB URINE ORDERABLES Final Res ult [facility] [address] [place] [address], [place] [phone] * (ABNORMAL) Drug abuse screen 8a panel, urine (10/15/2024 9:35 AM EDT) [facility] Amphetamine Screen, Ur Negative Negative LAB CHEMISTRY METHOD 5 10:38 AM EDT [facility] Comment:Certain OTC medicati ons containing ephedrine, phenylephrine, pseudoephedrine and phenylpropanolamine can cause false positive results. Barbiturate Screen, Ur Negative Negative LAB CHEMISTRY METHOD 5 10:38 AM [facility] Benzodiazepine Screen, Ur Positive(A ) Negative LAB CHEMISTRY METHOD 5 10:38 AM T [facility] Cocaine Screen, Ur Negative Negative LAB CHEMISTRY METHOD 5 10:38 AM [facility] Opiate Screen, Ur Negative Negative LAB CHEMISTRY METHOD 5 10:38 AM [facility] Cannabinoid (THC) Screen, Ur Negative Negative LAB CHEMISTRY METHOD 5 10:38 AM T [facility] Comment:Specimens from patie nts taking pantoprazole sodium (Protonix) have been shown to produce false positive results. Oxycodone Screen, Ur Negative Negative LAB CHEMISTRY METHOD 5 10:38 AM T [facility] Fentanyl, Ur Positive(A ) Negative LAB CHEMISTRY METHOD 5 10:38 AM [facility] Urine Urine specimen obtained by clean catch procedure / Unknown Non-blood Collection / Unknown 10/15/2024 9:35 AM EDT 10/15/2024 9:53 AM EDT [facility] - 10/15/2024 10:38 AM EDT Assay cutoffs: Amphetamines 1000 ng/mL Barbiturates 200 ng/mL Benzodiazepines 200 ng/mL Cocaine 300 ng/mL Fentanyl 1 ng/mL Opiates 300 ng/mL Oxycodone 100 ng/mL THC 50 ng/mL Semi-quantitative assay for screening purposes only. Unconfirmed screening result should not be used for non-medical purposes. *ALTERNATE METHOD CONFIRMATION DONE UPON REQUEST ONLY* Sanju Silva LAB URINE ORDERABLES Final Res ult Performing Organization Address [facility]/ZIP Co de Phone Number [facility] [address] [place] [address], [place] [phone] * Buprenorphine screen, urine (10/15/2024 9:35 AM EDT) Buprenorphine Screen Urine Negative Negative LAB CHEMISTRY METHOD 10/15/2024 10:28 AM EDT [facility] Urine Urine specimen obtained by clean catch procedure / Unknown Non-blood Collection / Unknown 10/15/2024 9:35 AM EDT 10/15/2024 9:53 AM EDT [facility] - 10/15/2024 10:28 AM EDT Assay cutoff 5 ng/mL Semi-quantitative assay for screening purposes only. Unconfirmed screening result should not be used for non-medical purposes. *ALTERNATE METHOD CONFIRMATION DONE UPON REQUEST ONLY* Sanju Silva LAB URINE ORDERABLES Final Res ult Performing Organization Address [facility]/ZIP Co de Phone Number [facility] [address] [place] [address], * Methadone, urine (10/15/2024 9:35 AM EDT) Methadone Screen, Urine Negative Negative LAB CHEMISTRY METHOD 10/15/2024 10:28 AM EDT [facility] Comment: Assay cutoff 300 ng/mL Semi-quantitative assay for screening purposes only. Unconfirmed screening result should not be used for non-medical purposes. *ALTERNATE METHOD CONFIRMATION DONE UPON REQUEST ONLY* Urine Urine specimen obtained by clean catch procedure / Unknown Non-blood Collection / Unknown 10/15/2024 9:35 AM EDT 10/15/2024 9:53 AM EDT us Sanju Silva DO LAB URINE ORDERABLES Final Res ult [facility] [address] [place] [address], [place] [phone] * (ABNORMAL) CBC auto differential (10/15/2024 9:35 AM EDT) WBC 13.7(H) 4.8 - 10.8 K/mcL LAB HEMETOLOGY METHOD 10/15/2024 10:01 AM [facility] RBC 5.80(H) 4.50 - 5.50 M/mcL LAB HEMETOLOGY METHOD 10/15/2024 10:01 AM [facility] Hemoglobin 18.2(H) 13.5 - 17.5 g/dL LAB HEMETOLOGY METHOD 10/15/2024 10:01 AM [facility] Hematocrit 53.6 42.0 - 54.0 % LAB HEMETOLOGY METHOD 10/15/2024 10:01 AM [facility] MCV 91.8 79.0 - 98.0 FL LAB HEMETOLOGY METHOD 10/15/2024 10:01 AM [facility] MCH 31.2 27.0 - 32.0 pcg LAB HEMETOLOGY METHOD 10/15/2024 10:01 AM [facility] MCHC 34.0 32.0 - 37.0 g/dL LAB HEMETOLOGY METHOD 10/15/2024 10:01 AM [facility] RDW 12.3 11.0 - 15.0 % LAB HEMETOLOGY METHOD 10/15/2024 10:01 AM [facility] Platelets 344 130 - 400 K/mcL LAB HEMETOLOGY METHOD 10/15/2024 10:01 AM [facility] MPV 10.7 7.0 - 11.0 FL LAB HEMETOLOGY METHOD 10/15/2024 10:01 AM [facility] NRBC 0.0 <1.0 % LAB HEMETOLOGY METHOD 10/15/2024 10:01 AM [facility] NRBC Absolute 0.00 <0.10 K/mcL LAB HEMETOLOGY METHOD 10/15/2024 10:01 AM [facility] Neutrophils Relative 74.6 % LAB HEMETOLOGY METHOD 10/15/2024 10:01 AM [facility] Lymphocytes Relative 19.3 % LAB HEMETOLOGY METHOD 10/15/2024 10:01 AM [facility] Monocytes Relative 4.7 % LAB HEMETOLOGY METHOD 10/15/2024 10:01 AM [facility] Eosinophils Relative 0.6 % LAB HEMETOLOGY METHOD 10/15/2024 10:01 AM [facility] Basophils Relative 0.4 % LAB HEMETOLOGY METHOD 10/15/2024 10:01 AM [facility] Immature Granulocytes Relative 0.4 % LAB HEMETOLOGY METHOD 10/15/2024 10:01 AM [facility] Neutrophils Absolute 10.24(H) 1.50 - 7.00 K/mcL LAB HEMETOLOGY METHOD 10/15/2024 10:01 AM [facility] Lymphocytes Absolute 2.64 1.00 - 5.00 K/mcL LAB HEMETOLOGY METHOD 10/15/2024 10:01 AM [facility] Monocytes Absolute 0.64 0.20 - 1.00 K/mcL LAB HEMETOLOGY METHOD 10/15/2024 10:01 AM EDT [facility] Eosinophils Absolute 0.08 0.00 - 0.50 K/[facility] LAB HEMETOLOGY METHOD 10/15/2024 10:01 AM EDT [facility] Basophils Absolute 0.05 0.00 - 0.20 K/[facility] LAB HEMETOLOGY METHOD 10/15/2024 10:01 AM EDT [facility] Immature Granulocytes Absolute 0.05(H) 0.00 - 0.03 K/[facility] LAB HEMETOLOGY METHOD 10/15/2024 10:01 AM EDT [facility] Blood Venous blood specimen / Unknown Venipuncture / Unknown 10/15/2024 9:35 AM EDT 10/15/2024 9:52 AM EDT Sanju Silva DO LAB BLOOD ORDERABLES Final Res ult Performing Organization Address [facility] de Phone Number [facility] [address] [place] [address], * Phencyclidine, urine (10/15/2024 9:35 AM EDT) PCP Scrn, Ur Negative Negative LAB CHEMISTRY METHOD 10/15/2024 10:28 AM EDT [facility] Comment: Assay cutoff 25 ng/mL Semi-quantitative assay for screening purposes only. Unconfirmed screening result should not be used for non-medical purposes. *ALTERNATE METHOD CONFIRMATION DONE UPON REQUEST ONLY* Urine Urine specimen obtained by clean catch procedure / Unknown Non-blood Collection / Unknown 10/15/2024 9:35 AM EDT 10/15/2024 9:53 AM EDT us Sanju Silva DO LAB URINE ORDERABLES Final Res ult Performing Organization Address [facility]/ZIP Co de Phone Number [facility] [address] [place] [address], [place] [phone] * Lipase (10/15/2024 9:35 AM EDT) Lipase 36 13 - 75 unit/L LAB CHEMISTRY METHOD 10/15/2024 10:25 AM EDT [facility] Blood Venous blood specimen / Unknown Venipuncture / Unknown 10/15/2024 9:35 AM EDT 10/15/2024 9:52 AM EDT Sanju Silva DO LAB BLOOD ORDERABLES Final Res ult Performing Organization Address City/[facility]/ZIP Co de Phone Number [facility] [address] [place] [address], [place] [phone] * Ethanol (10/15/2024 9:35 AM EDT) Ethanol Level <3 0 - 10 mg/dL LAB CHEMISTRY METHOD 10/15/2024 10:25 AM EDT [facility] Blood Venous blood specimen / Unknown Venipuncture / Unknown 10/15/2024 9:35 AM EDT 10/15/2024 9:52 AM EDT Sanju Silva DO LAB BLOOD ORDERABLES Final Res ult [facility] [address] [place] [address], [place] [phone] * (ABNORMAL) Acetaminophen level (10/15/2024 9:35 AM EDT) Acetaminophen Level 6.9(L) 10.0 - 30.0 mcg/mL LAB CHEMISTRY METHOD 10/15/2024 10:25 AM EDT [facility] Blood Venous blood specimen / Unknown Venipuncture / Unknown 10/15/2024 9:35 AM EDT 10/15/2024 9:52 AM EDT Sanju Silva DO LAB BLOOD ORDERABLES Final Res ult Performing Organization Address [facility]/ZIP Co de Phone Number [facility] [address] [place] [address], [place] [phone] * Salicylate level (10/15/2024 9:35 AM EDT) Salicylate Level 6.5 2.0 - 29.0 mg/dL LAB CHEMISTRY METHOD 10/15/2024 10:25 AM EDT [facility] Blood Venous blood specimen / Unknown Venipuncture / Unknown 10/15/2024 9:35 AM EDT 10/15/2024 9:52 AM EDT Sanju Silva DO LAB BLOOD ORDERABLES Final Res ult Performing Organization Address [facility] de Phone Number [facility] [address] [place] [address], [place] [phone] * (ABNORMAL) Comprehensive metabolic panel (10/15/2024 9:35 AM EDT) [facility] Sodium 137 133 - 145 mmol/L LAB CHEMISTRY METHOD 10/15/2024 10:26 AM [facility] Potassium 4.1 3.5 - 5.5 mmol/L LAB CHEMISTRY METHOD 10/15[facility]2024 [facility] Chloride 102 96 - 110 mmol/L LAB CHEMISTRY METHOD 10/15/2024 10:26 AM [facility] CO2 24 21 - 32 mmol/L LAB CHEMISTRY METHOD 10/15/2024 10:26 AM [facility] Anion Gap 11 3 - 11 LAB CHEMISTRY METHOD 10/15/2024 10:26 AM [facility] Glucose 110(H) 70 - 100 mg/dL LAB CHEMISTRY METHOD 10/15/2024 10[facility] BUN 15 5 - 25 mg/dL LAB CHEMISTRY METHOD 10/15/2024 10:26 AM [facility] Creatinine 1.21 0.70 - 1.30 mg/dL LAB CHEMISTRY METHOD 10/15/2024 10:26 AM [facility] eGFR 73 >=60 mL/min/1. 73m2 LAB CHEMISTRY METHOD 10/15/2024 10:26 AM [facility] Comment:Calculation based on the Chronic Kidney Disease Epidemiology Collaboration (CKD-EPI) equation refit without adjustment for race. BUN/Creatinine Ratio 12.4 LAB CHEMISTRY METHOD 10/15/2024 10:26 AM [facility] Calcium 9.9 8.5 - 10.5 mg/dL LAB CHEMISTRY METHOD 10/15/2024 10:26 AM [facility] AST (SGOT) 31 10 - 42 unit/L LAB CHEMISTRY METHOD 10/15/2024 10:26 AM [facility] ALT (SGPT) 55 10 - 60 unit/L LAB CHEMISTRY METHOD 10/15/2024 10:26 AM [facility] Alkaline Phosphatase 81 42 - 121 unit/L LAB CHEMISTRY METHOD 10/15/2024 10:26 AM [facility] Total Protein 7.7 6.0 - 8.0 g/dL LAB CHEMISTRY METHOD 10/15/2024 10:26 AM [facility] Albumin 4.4 3.2 - 5.0 g/dL LAB CHEMISTRY METHOD 10/15/2024 10:26 AM [facility] Total Bilirubin 0.6 0.0 - 1.4 mg/dL LAB CHEMISTRY METHOD 10/15/2024 10:26 AM [facility] Blood Venous blood specimen / Unknown Venipuncture / Unknown 10/15/2024 9:35 AM EDT 10/15/2024 9:52 AM EDT us Sanju Silva DO LAB BLOOD ORDERABLES Final Res ult [facility] [address] [facility] [place] [address], [place] [phone] from Last 3 Months Insurance MEDICARE MEDICAID - [place] Advance Directives Documents on File Type Date Recorded Patient Carpentry Specialist Expl anation Health Care Decision (hx) 11/29/2019 AD KENNEY DIRECTIVE Health Care Decision (hx) 11/19/2019 AD KENNEY DIRECTIVE Care Teams Mechanical Systems Engineer Relationship Specialty Start Date End Date Nata Ferrer MD [address] [place] [address] PCP - General Internal Medicine 08/28/24
--- OUTSIDE RECORDS SUMMARY | 2024-12-31 13:56 | XMS_ITS | Encounter Summary ---
Author Organization [employer] Address [address] [place] [address] 7 [place] [address] Care Team Providers Care Instructional Paraprofessional Name Role Phone Nata Ferrer MD Primary Care Provider +[phone]- [phone] Reason for Visit * Reason Comments Med Refill Encounter Details Date Type Department Care Team ([facility] Contact Info) Description 12/16/2022 Refill [facility] & [facility]S [address] [place] [address] Nata Ferrer MD [address] [place] [address] Other chronic pain; Rib pain on right [...] documented as of this encounter Care Teams Instructional Paraprofessional Relationship Specialty Start Date End Date Nata Ferrer MD [address] [place] [address] PCP - General Internal Medicine 02/07/19 documented as of this encounter
--- OUTSIDE RECORDS SUMMARY | 2024-12-31 13:56 | XMS_ITS | Encounter Summary ---
Author Organization [employer] Address [address] [place] [address] [place] [address] Care Team Providers Care Desizing Machine Offbearer Name Role Phone Nata Ferrer MD Primary Care Provider +1- [phone] Reason for Visit * Reason Comments Med Refill Encounter Details Date Type Department Care Team ([facility] Contact Info) Description 11/16/2022 Refill [facility] [address] [place] [address] Nata Ferrer MD [address] [place] [address] Rib pain on right side Social History [...] documented as of this encounter Care Teams Desizing Machine Offbearer Relationship Specialty Start Date End Date Nata Ferrer MD [address] [place] [address] PCP - General Internal Medicine 02/07/19 documented as of this encounter
--- OUTSIDE RECORDS SUMMARY | 2024-12-31 13:56 | XMS_ITS | Encounter Summary ---
Author Organization [employer] Address [address] [place] [address] Care Team Providers Care Gas Pipe Layer Name Role Phone Nata Ferrer MD Primary Care Provider [phone] Encounter Details Date Type Department Care Team (Late st Contact Info) Description 09/11/2024 Orders Only [facility] MED & PEDS [address] [place], [place] [phone] Provider, MD Ailyn Social History Tobacco Use Types Packs/Day Years [...] Procedure Name Priority Date/Time Associated Diagnosis Comments CT ABDOMEN PELVIS W CONTRAST Routine 09/11/2024 8:55 AM EDT documented in this encounter Results * CT Abdomen Pelvis w/ Contrast (09/11/2024 8:55 AM EDT) Anatomical Region Laterality Modality Body, Pelvis, Abdomen Computed T omography us Historical Provider MD SOTELO CT PROCEDURES Final R esult documented in this encounter Visit Diagnoses Not on filedocumented in this encounter Additional Health Concerns Assessment Noted Time PHQ-9 Depression Total Score: 7 11/18/19 24 2:11 PM EDT documented as of this encounter Care Teams Gas Pipe Layer Relationship Specialty Start Date End Date Nata Ferrer MD [address] [place] [phone] PCP - General Internal Medicine 02/07/19 documented as of this encounter
--- OUTSIDE RECORDS SUMMARY | 2024-12-31 13:56 | XMS_ITS | Encounter Summary ---
Author Organization [employer] Address [address] 7[address] [place] [address] Care Team Providers Care Spray Rig Operator Name Role Phone Nata Ferrer MD Primary Care Provider [phone] Encounter Details Date Type Department Care Team ([facility] st Contact Info) Description 04/12/2023 Orders Only [facility] MED & PEDS [address] [place] [address] Nata Ferrer MD [address] [place] [address] Other chronic pain Social History Tobacco Use [...] documented as of this encounter Care Teams Spray Rig Operator Relationship Specialty Start Date End Date Nata Ferrer MD [address] [place] [address] PCP - General Internal Medicine 02/07/19 documented as of this encounter
--- OUTSIDE RECORDS SUMMARY | 2024-12-31 13:56 | XMS_ITS | Encounter Summary ---
Author Organization [employer] Address [address] [facility] 7t [place] [address] Care Team Providers Care Digital Archivist Name Role Phone Nata Ferrer MD Primary Care Provider [phone] Reason for Visit * Reason Comments Med Refill Encounter Details Date Type Department Care Team ([facility] Contact Info) Description 11/04/2024 Refill [facility] MED & PEDS [address] [place] [address] Nata Ferrer MD [address] [place] [address] Other chronic back pain Social History Tobacco [...] Visit Diagnoses Diagnosis Other chronic back pain documented in this encounter Additional Health Concerns Assessment Noted Time PHQ-9 Depression Total Score: 7 11/18/19 24 2:11 PM EDT documented as of this encounter Care Teams Digital Archivist Relationship Specialty Start Date End Date Nata Ferrer MD [address] [place] [address] PCP - General Internal Medicine 02/07/19 documented as of this encounter
--- OUTSIDE RECORDS SUMMARY | 2024-12-31 13:56 | XMS_ITS | Clinical Summary ---
Author Organization [email or web address] Address [address] [place] [address] Care Team Providers Care Fire Extinguisher Repairer Name Role Phone Nata Ferrer MD Primary Care Provider +- [phone] Allergies No known active allergies Medications clonazePAM [...] as directed by MD. 30 patch 1 11/05/19 23 Active cholecalcifero l (Vitamin D-3) 50 MCG (1999) capsuleIndicat ions:Vitamin D deficiency Take 1 capsule (50 mcg) by mouth Once per day. 30 capsule 11 11/21/19 24 Active atorvastatin (Lipitor) 20 MG tabletIndicati ons:Vitamin D deficiency Take 1 tablet (20 mg) by mouth Once per day. 30 tablet 11 11/21/19 24 Active Acetaminophen Extra Strength 500 MG tabletIndicati ons:Other chronic back pain,Other chronic pain TAKE 2 TABLETS BY MOUTH 2 TIMES DAILY 120 tablet 1 10/04/19 25 Active tiZANidine (Zanaflex) 4 MG tabletIndicati ons:Other chronic back pain,Muscle spasm TAKE 1 TABLET (4 MG) BY MOUTH EVERY 8 HOURS IF NEEDED FOR MUSCLE SPASMS 30 tablet 2 10/25/19 25 Active diclofenac (Cataflam) 50 MG tabletIndicati ons:Other chronic back pain TAKE 1 TABLET BY MOUTH 3 TIMES DAILY 90 tablet 2 11/13/19 25 Active lidocaine (Lidoderm) 5 % patchIndicatio ns:Other chronic back pain,Other chronic pain APPLY 1 PATCH TOPICALLY ONCE PER DAY. REMOVE & DISCARD PATCH WITHIN 12 HOURS OR DIRECTED BY . 30 patch 1 12/08/19 25 Active lidocaine (Lidoderm) 5 % patchIndicatio ns:Other chronic back pain,Other chronic pain APPLY 1 PATCH TOPICALLY ONCE PER DAY. REMOVE & DISCARD PATCH WITHIN 12 HOURS OR DIRECTED BY . 30 patch 1 10/03/19 25 025 Discontinued Active Problems Problem Noted Date Diagnosed Date Abnormal liver function tests 05/19/2021 High thyroid stimulating hormone (TSH) level 04/2021 Hypertriglyceridemia 05/19/2021 Vitamin D deficiency 05/19/2021 Viral hepatitis C 02/08/2019 Encounters Date Type Department Care Team Description 12/31/2024 9:30 AM EDT Office Visit [facility]S [address] [place] [address] Nata Ferrer MD High thyroid stimulating hormone (TSH) level (Primary Dx); Hypertriglyceridemia; Chronic hepatitis C without hepatic coma (CMS/HCC); Vitamin D deficiency; Screen for STD (sexually transmitted disease); Annual physical exam; Bilateral impacted cerumen; Dental decay; Pruritic intertrigo 12/31/2024 Travel 12/29/2024 Refill [facility]EDS [address] [place] [address] Nata Ferrer MD Other chronic back pain; Other chronic pain 12/28/2024 Telephone [facility] [address] [place] [address] Nata Ferrer MD Chart Prep 12/07/2024 Refill [facility] [address] [place] [address] Nata Ferrer MD Other chronic back pain; Other chronic pain 11/12/2024 Telephone [facility] [address] [place] [address] Nata Ferrer MD Med Refill 11/10/2024 Refill [facility] [address] [place] [address] Nata Ferrer MD Other chronic back pain 11/09/2024 1:40 PM EDT Office Visit [facility]S [address] [place] [address] Tran Kirkpatrick MD Myalgia (Primary Dx) 11/09/2024 Travel 11/08/2024 Telephone [facility] [address] [place] [address] Nata Ferrer MD Nurse Triage 11/04/2024 Refill [facility] & PEDS [address] [place] [address] Nata Ferrer MD Other chronic back pain 10/31/2024 Refill [facility] PEDS [address] [place] [address] Nata Ferrer MD Vitamin D deficiency; Other chronic back pain 10/23/2024 Refill [facility] PEDS [address] [place] [address] Nata Ferrer MD Other chronic back pain; Muscle spasm 10/22/2024 Telephone [facility] & PEDS [address] [place] [address] Nata Ferrer MD ER Follow-up 10/16/2024 Orders Only [facility] PEDS [address] [place] [address] Ailyn Fuchs MD 10/15/2024 Orders Only [facility] [address] [place] [address] ProviderAilyn MD 10/03/2024 Refill [facility] PEDS [address] [place] [address] Nata Ferrer MD Other chronic back pain; Other chronic pain 10/02/2024 Refill [facility] PEDS [address] [place], [place] [phone] Nata Ferrer MD Other chronic back pain; Other chronic pain from Last 3 Months Immunizations Immunization Administration Dates Next Due Pneumococcal Conjugate PCV [...] Mass Index 33.72 12/31/2024 10:01 AM EDT Plan of Treatment Health Maintenance Due Date Last Done Comments CT Colonography 1975 Colonoscopy 1975 FIT DNA/Cologuard 1975 FIT 1975 FOBT 1975 Sigmoidoscopy 1975 Family Planning (PISQ) 10/11/1990 Hepatitis A Vaccines (1 of 2 - Risk 2-dose series) 10/11/1994 COVID-19 Vaccine (4 - 2024-2 6 season) 2024 04/16/2021, 06/25/2020, 06/04/2020 Influenza Vaccine (#1) 2024 Depression Monitoring 06/30/2025 12/31/2024 , 12/31/2024 Zoster Vaccines (1 of 2) 10/11/2025 Alcohol/Substance Use Screening 12/31/2025 12/31/2024 Colorectal Cancer Screening 12/31/2025 Postponed from 1975 (Patient Refused) DTaP/Tdap/Td Vaccines (1 - Tdap) 12/31/2025 Postponed from 10/11 (Patient Refused) Disability Screening 12/31/2025 12/31/2024 Hepatitis B Vaccines (1 of 3 - 19+ 3-dose series) 12/31/2025 Postponed from 09/17 (Patient Refused) SDOH Screening 12/31/2025 12/31/2024 Tobacco Screening 12/31/2025 12/31/2024 Lipid Panel 11/17/2028 11/18/2023, 01/03/2023, 05/18/2021 RSV Patients and Patients Aged 60 years or older (1 - 1-dose 75+ series) 10/11/2050 HIV Screening Completed 05/28/2021 Pneumococcal Vaccine: Pediatrics (0 to 5 Years) and At-Risk Patients (6 to 49) Years Completed 11/18/2023 HIB Vaccines Aged Out No [...] Name Priority Date/Time Associated Diagnosis Comments POCT INFLUENZA A (ID NOW RAPID MOLECULAR) Routine 11/09/2024 2:42 PM EDT Myalgia POCT INFLUENZA B (ID NOW RAPID MOLECULAR) Routine 11/09/2024 2:41 PM EDT Myalgia POCT COVID-19 AG RICHARDS ID NOW Routine 11/09/2024 2:40 PM EDT Myalgia XR CHEST 2 VIEWS Routine 10/15/2024 4:[address] ABDOMEN PELVIS W CONTRAST Routine 10/15/2024 9:56 AM EDT ECG 12-LEAD Routine 10/15/2024 9:29 AM EDT LIPID PANEL, STANDARD Routine 11/18/2023 2:36 PM EDT Annual physical exam Hypertriglyceridemi a HIV 1/2 ANTIGEN/ANTIBODY, FOURTH GENERATION W/RFL Routine 05/28/2021 9:02 AM EST from Last 3 Months or Most Recently Relevant to Health Maintenance Results * Influenza A (ID NOW Rapid Molecular) (11/09/2024 2:42 PM EDT) Influenza A Negative Negative, Indeterminate [facility] QC Media Lot # [facility] Comment:[id number] Lot# Expiration Date [facility] Comment:05/18/2026 Swab 11/09/2024 2:42 PM EDT us Tran Kirkpatrick MD POINT OF CARE TEST ENTER/BERNA T ORDERABLES Final Result Performing Organization Address City/[facility]/ZIP Co de Phone Number [facility] [address] [place] [phone] * Influenza B (ID NOW Rapid Molecular) (11/09/2024 2:41 PM EDT) Influenza B Negative Negative, Indeterminate [facility] QC Media Lot # [facility] Comment:[id number] Lot# Expiration Date [facility] Comment:05/18/2026 Swab 11/09/2024 2:41 PM EDT us Tran Kirkpatrick MD POINT OF CARE TEST ENTER/BERNA T ORDERABLES Final Result Performing Organization Address City/[facility]/ZIP Co de Phone Number [facility] [address] [place] [phone] * POCT COVID-19 Ag Richards ID NOW (11/09/2024 2:40 PM EDT) Coronavirus Antigen PCR Negative Negative, Indeterminate, None Detected, Invalid, Specimen unsatisfactory for evaluation, Weakly Positive, 2+ QC Media Lot # Comment:[id number] Lot# Expiration Date Comment:04/11/2025 Swab 11/09/2024 2:40 PM EDT us Tran Kirkpatrick MD POINT OF CARE TEST ENTER/BERNA T ORDERABLES Final Result * XR Chest 2 Views (10/15/2024 4:18 PM EDT) Anatomical Region Laterality Modality Chest Radiographic Keyla ging Historical Provider IMG XR PROCEDURES Final R esult * CT Abdomen Pelvis w/ Contrast (10/15/2024 9:56 AM EDT) Anatomical Region Laterality Modality Body, Pelvis, Abdomen Computed T omography Historical Provider IMG CT PROCEDURES Final R esult * ECG 12 lead (10/15/2024 9:29 AM EDT) Historical Provider ECG ORDERABLES Final Res ult * (ABNORMAL) Lipid Panel, Standard (11/18/2023 2:36 PM EDT) Triglycerides 170(H) <150 mg/dL [facility] Comment:Desirable Triglyceri de: less than 150 mg/dLBorderline High Triglyceride 150-199 mg/dLHigh Triglyceride: 200-499 mg/dLVery High Triglyceride: greater than or equal to 5OO mg/dL Cholesterol 218(H) <200 mg/dL [facility] Comment:Desirable Cholestero l: less than 200 mg/dLBorderline High Cholesterol: 200-239 mg/dLHigh Cholesterol: greater than 239 mg/dL LDL Cholesterol Calculated 150(H) <100 mg/dL [facility] Comment:Desirable LDL: less than 100 mg/dLNear Optimal/Above Optimal LDL: 110- 129 mg/dLBorderline High LDL: 130-159 mg/dLHigh LDL: 160-189 mg/dLVery High LDL: greater than or equal to 190 mg/dL HDL Cholesterol 34(L) >40 mg/dL [facility] Comment:Desirable HDL: great er than 40 mg/dL Note: This HDL assay may give artificially low results in patients with liver disease. Blood Venous blood specimen / Unknown 11/18/2023 2:36 PM EDT 11/18/2023 6:00 PM EDT us Nata Ferrer MD LAB BLOOD ORDERABLES Final Result Performing Organization Address [facility] Co de Phone Number [facility] [address] [place] [address] [phone] * HIV 1/2 ANTIGEN/ANTIBODY,FOURTH GENERATION W/RFL (05/28/2021 9:02 AM EST) HIV-1/2 ANTIGEN AND ANTIBODIES, 4TH GENERATION W/ REFLEX NON-REACT [facility] NON-[facility]ACT [facility] Comment: HIV-1 antigen and HIV-1/HIV-2 antibodies were not detected. There is no laboratory evidence of HIV infection. PLEASE NOTE: This information has been disclosed to you from records whose confidentiality may be protected by state law. If your state requires such protection, then the state law prohibits you from making any further disclosure of the information without the specific written consent of the person to whom it pertains, or as otherwise permitted by law. A general authorization for the release of medical or other information is NOT sufficient for this purpose. For additional information please refer to http://education.[employer].com.Subtech/[email or web address] (This link is being provided for informational/ educational purposes only.) The performance of this assay has not been clinically validated in patients less than 2 years old. 05/28/2021 9:02 AM EST us Nata Ferrer MD LAB BLOOD ORDERABLES Final Result Performing Organization Address [facility] Co de Phone Number [facility] [address] from Last 3 Months or Most Recently Relevant to Health Maintenance Insurance MEDICARE [facility] STANDARD Care Teams Fire Extinguisher Repairer Relationship Specialty Start Date End Date Nata Ferrer MD [address] [place] [address] PCP - General Internal Medicine 02/07/19
--- OUTSIDE RECORDS SUMMARY | 2024-12-31 13:56 | XMS_ITS | Encounter Summary ---
Author Organization [employer] Address [address] [place] [address] Care Team Providers Care Lab Scientist Name Role Phone Nata Ferrer MD Primary Care Provider [phone] Reason for Visit * Reason Comments Med Refill Encounter Details Date Type Department Care Team ([facility] Contact Info) Description 08/19/2024 Refill [facility] MED & PEDS [address] [place] [address] Ema Ponce MD [address] [place] [address] Social History Tobacco Use Types Packs/Day Years [...] documented as of this encounter Care Teams Lab Scientist Relationship Specialty Start Date End Date Nata Ferrer MD [address] [place] [phone] PCP - General Internal Medicine 02/07/19 documented as of this encounter
--- OUTSIDE RECORDS SUMMARY | 2024-12-31 13:56 | XMS_ITS | Encounter Summary ---
Author Organization [employer] Address [address] [place] [address] Care Team Providers Care White Mixing Operator Name Role Phone Nata Ferrer MD Primary Care Provider +- [phone] Reason for Visit * Reason Onset Date Comments Medication Question 04/06/2023 Encounter Details Date Type Department Care Team ([facility] st Contact Info) Description 04/06/[address] [facility] MEDICINE [address] [place] [address] Nata Ferrer MD [address] [place], [place] [phone] Medication Question Social History Tobacco Use Types [...] t he electric, gas, oil or water [employer] threatened to shut off services in your [...] Tc from Rachel the RN at the [facility] calling to request a order for to [...] documented as of this encounter Care Teams White Mixing Operator Relationship Specialty Start Date End Date aNta Ferrer MD [address] [place] [phone] PCP - General Internal Medicine 02/07/19 documented as of this encounter
--- OUTSIDE RECORDS SUMMARY | 2024-12-31 13:56 | XMS_ITS | Encounter Summary ---
Author Organization [employer] Address [address] [facility] [address] [place] [address] Care Team Providers Care Display Mechanic Name Role Phone Nata Ferrer MD Primary Care Provider +- [phone] Reason for Visit * Reason Onset Date Comments Same day care 06/15/23 06/15/2023 Encounter Details Date Type Department Care Team ([facility] st Contact Info) Description 06/15/2023 Telephone [facility] [address] [place] [address] Nata Ferrer MD [address] [place], [place] [phone] Same day care 06/15/23 Social History Tobacco [...] documented as of this encounter Care Teams Display Mechanic Relationship Specialty Start Date End Date Nata Ferrer MD [address] [place] [address] PCP - General Internal Medicine 02/07/19 documented as of this encounter
--- OUTSIDE RECORDS SUMMARY | 2024-12-31 13:56 | XMS_ITS | Encounter Summary ---
Author Organization [employer] Address [address] [facility] 7t [place] [address] Care Team Providers Care Aircraft General Repair Mechanic Name Role Phone Nata Ferrer MD Primary Care Provider [phone] Encounter Details Date Type Department Care Team (Late st Contact Info) Description 07/21/2022 Orders Only [facility] & P[facility] [address] [place], [place] [phone] Nata Ferrer MD [address] [place] [address] Other chronic pain Social History Tobacco Use [...] EDT) Sodium 138 135 - 145 mmol/L [facility] Potassium 3.9 3.3 - 5.1 mmol/L [facility] Chloride 107 96 - 108 mmol/L [facility] Carbon Dioxide 23 22 - 29 mmol/L [facility] Anion Gap 12 12 - 20 [facility] Urea Nitrogen (BUN) 14 9 - 16 mg/dL [facility] Creatinine, Serum 0.88 0.5 - 1.4 mg/dL [facility] Estimated Glomerular Filt Rate >60 [facility] Comment:NOTE: For -Am erican individuals, multiply the result by 1.210.Chronic Kidney Disease: Estimated GFR < 60 mL/min/1.75t6Hnqgzc Kidney Disease: Estimated GFR < 15 mL/min/1.73m2 Glucose Fasting 89 60 - 99 mg/dL [facility] Calcium 9.7 8.4 - 10.2 mg/dL [facility] 01/03/2023 8:42 AM EDT 01/03/2023 2:10 PM EDT Nata Ferrer MD LAB BLOOD ORDERABLES Final Result Performing Organization Address City/State/[facility] Co de Phone Number [facility] [address] [place] [address] [phone] documented in this encounter Visit Diagnoses Diagnosis Other chronic pain documented in this encounter Care Teams Aircraft General Repair Mechanic Relationship Specialty Start Date End Date Nata Ferrer MD [address] [place] [address] PCP - General Internal Medicine 02/07/19 documented as of this encounter
--- OUTSIDE RECORDS SUMMARY | 2024-12-31 13:56 | XMS_ITS | Encounter Summary ---
Author Organization [employer] Address [address] [facility] [address] [place] [address] Care Team Providers Care Nuclear Officer Name Role Phone Nata Ferrer MD Primary Care Provider [phone] Encounter Details Date Type Department Care Team (Late st Contact Info) Description 10/16/2024 Orders Only [facility] MED & PED[facility] [address] [place], [place] [phone] Provider, MD Ailyn Social History Tobacco Use [...] Comments CT ABDOMEN PELVIS W CONTRAST Routine 10/15/2024 9:56 AM EDT ECG 12-LEAD Routine 10/15/2024 9:29 AM EDT documented in this encounter Results * CT Abdomen Pelvis w/ Contrast (10/15/2024 9:56 AM EDT) Anatomical Region Laterality Modality Body, Pelvis, Abdomen Computed T omography us Historical Provider IMG CT PROCEDURES Final R esult * ECG 12 lead (10/15/2024 9:29 AM EDT) us Historical Provider ECG ORDERABLES Final Res ult documented in this encounter Visit Diagnoses Not on filedocumented in this encounter Additional Health Concerns Assessment Noted Time PHQ-9 Depression Total Score: 7 11/18/19 24 2:11 PM EDT documented as of this encounter Care Teams Nuclear Officer Relationship Specialty Start Date End Date Nata Ferrer MD [address] [place] [address] PCP - General Internal Medicine 02/07/19 documented as of this encounter
--- OUTSIDE RECORDS SUMMARY | 2024-12-31 13:56 | XMS_ITS | Encounter Summary ---
Author Organization [employer] Address [address] [place] [address] 7 [place] [address] Care Team Providers Care Global Upstream Marketing Manager Name Role Phone Nata Ferrer MD Primary Care Provider [phone] Encounter Details Date Type Department Care Team (Latest Contact Info) Description 01/04/2023 Orders Only [facility] MED & PEDS [address] [place] [address] Nata Ferrer MD [address] [place], [place] [phone] Hypertriglyceridemia (Primary Dx) Social History Tobacco Use [...] documented as of this encounter Care Teams Global Upstream Marketing Manager Relationship Specialty Start Date End Date Nata Ferrer MD [address] [place], [place] [phone] PCP - General Internal Medicine 02/07/19 documented as of this encounter
--- OUTSIDE RECORDS SUMMARY | 2024-12-31 13:56 | XMS_ITS | Encounter Summary ---
Author Organization [employer] Address 75 [facility] 7t [place] [address] Care Team Providers Care Soil Conservationist Name Role Phone Nata Ferrer MD Primary Care Provider [phone] Reason for Visit * Reason Comments Med Refill Encounter Details Date Type Department Care Team ([facility] Contact Info) Description 06/21/2023 Refill [facility] MED & PEDS [address] [place] [address] Nata Ferrer MD [address] [place] [address] Muscle spasm; Other chronic pain Social History [...] documented as of this encounter Care Teams Soil Conservationist Relationship Specialty Start Date End Date Nata Ferrer MD [address] [place] [address] PCP - General Internal Medicine 02/07/19 documented as of this encounter
--- OUTSIDE RECORDS SUMMARY | 2024-12-31 13:56 | XMS_ITS | Encounter Summary ---
Author Organization [employer] Address 75 [facility] 7t [place] [address] Care Team Providers Care Founding Partner Name Role Phone Nata Ferrer MD Primary Care Provider [phone] Encounter Details Date Type Department Care Team ([facility] st Contact Info) Description 10/15/2024 Orders Only [facility] [address] [place] [address] ProviderAilyn MD Social History Tobacco Use Types [...] Procedure Name Priority Date/Time Associated Diagnosis Comments XR CHEST 2 VIEWS Routine 10/15/2024 4:18 PM EDT documented in this encounter Results * XR Chest 2 Views (10/15/2024 4:18 PM EDT) Anatomical Region Laterality Modality Chest Radiographic Keyla ging us Historical Provider MD SOTELO XR PROCEDURES Final R esult documented in this encounter Visit Diagnoses Not on filedocumented in this encounter Additional Health Concerns Assessment Noted Time PHQ-9 Depression Total Score: 7 11/18/19 24 2:11 PM EDT documented as of this encounter Care Teams Founding Partner Relationship Specialty Start Date End Date Nata Ferrer MD [address] [place] [address] PCP - General Internal Medicine 02/07/19 documented as of this encounter
[2024-12-31 14:08] LABS: MANUAL DIFF FLAG NO
[2024-12-31 14:18] LABS: Hematocrit 49.7 % (42.0-52.0); Hemoglobin 16.9 g/dl (14.0-18.0); Imm Gran Abs Auto 0.07 X10*3/uL (0.00-0.03); Imm Gran Pct Auto 0.5 % (0.0-0.4); Lymphocytes Absolute Auto 2.8 X10*3/uL (1.2-4.9); Mean Corpuscular HGB Conc 34.0 g/dl (31.0-36.0); Mean Corpuscular Hemoglobin 31.0 pg (27.0-33.0); Mean Corpuscular Volume 91.2 fL (80.0-98.0); NRBC Abs Auto 0.000 X10*3/uL (0.0-0.012); NRBC Pct Auto 0.0 /100WBC (0.0-0.2); Platelet Count 316 X10*3/uL (160-400); Red Blood Count 5.45 X10*6/uL (4.60-5.80); White Blood Count 13.0 X10*3/uL (4.8-10.8)
[2024-12-31 14:19] LABS: Appearance Urine Clear; Glucose Urine UA Negative (Negative); PH 5.5 (5.0-9.0); Specific Gravity - Urine >= 1.030 (1.005-1.025)
[2024-12-31 14:40] LABS: Alanine Aminotransferase 26 U/L (0-40); Albumin Level 4.4 g/dL (3.5-5.0); Alkaline Phosphatase 72 U/L (39-117); Anion Gap 12 (12-20); Aspartate Amino Transferase 25 U/L (5-37); Blood Urea Nitrogen 17 mg/dL (9-16); Calcium 9.4 mg/dL (8.4-10.2); Carbon Dioxide 24 mmol/L (22-29); Chloride 108 mmol/L (96-108); Cholesterol 209 mg/dL (<200); Estimated Glomerular Filt Rate > 60; HDL Cholesterol 32 mg/dL (>40); Potassium 4.0 mmol/L (3.3-5.1); Sodium 140 mmol/L (135-145); Total Protein 7.2 g/dL (6.5-8.0); Triglycerides 190 mg/dL (<150)
[2024-12-31 15:00] LABS: Folate 4.1 ng/mL (> or = 4.0); Vitamin B12 397 pg/mL (200-900)
[2025-01-01 08:36] LABS: HIV Num 1 0.05 S/CO (0.00-0.99); ~HepC Num1 13.43 S/CO (0.00-0.79); ~Hepatitis C Antibody Reactive (Nonreactive)
[2025-01-02 14:23] LABS: HCV Log PCR 5.75 Log IU/mL (NOT DETECTED); HepC Viral Load 560000 IU/mL (NOT DETECTED)
== END 2024-12-31 10:44 | disposition home or self-care (01) ==
LOC: HO.CHCLDS 10:43
PROVIDERS: Visit Provider Internal Medicine
DX: Z11.3 Encounter for screening for infections with a predominantly sexual mode of transmission (principal); Z11.4 Encounter for screening for human immunodeficiency virus [HIV]; B18.2 Chronic viral hepatitis C; E78.1 Pure hyperglyceridemia; R79.89 Other specified abnormal findings of blood chemistry; E55.9 Vitamin D deficiency, unspecified
CPT/HCPCS: 36415; 80053; 80061; 81003; 82306; 82607; 82746; 84443; 85025; 86592; 86803; 87389; 87522

== ENCOUNTER 2025-02-09 11:35 | Emergency (ER) | payer MEDICARE, MEDICAID, SELFPAY ==
--- NOTE | ~2025-02-09 | XR_ITS ---
CLINICAL HISTORY: weakness 2 view chest x-ray. Comparison: 07/22/2024 Findings: No consolidation or effusion. Cardiac and mediastinal contours are stable. Bones reveal stable remote anterior right 5th and 6th rib fractures.. Impression: 1. No acute pulmonary disease. This document has been electronically signed by: Elder Copeland MD on 02/09/2025 14:15:01
--- NOTE | ~2025-02-09 | XR_ITS ---
CLINICAL HISTORY: b l LE pain 3 views lumbar spine Comparison: 02/24/2022 Findings: No fractures or dislocations. Normal vertebral body alignment. Intervertebral disc heights are well-maintained. There is very slight anterior vertebral body spurring at L4-5. There appears to be mild facet arthropathy L5-S1.. Impression: 1. Minimal lumbar degenerative changes as described above. This document has been electronically signed by: Elder Copeland MD on 02/09/2025 16:44:33
[2025-02-09 11:48] VITALS: BP 138/87; BP 150/90; PULSE 76; PULSE 90; RESP 18; TEMP 36.6; O2SAT 98; O2SAT 99; BMI 38.4
--- NOTE | 2025-02-09 12:02 | ED_ITS ---
HPI - General Adult General Chief complaint: Weakness Stated complaint: PAIN ALL OVER PER EMS Time Seen by Provider: 02/09/25 12:02 Source: patient and EMS Mode of arrival: EMS Limitations: no limitations History of Present Illness ED Provider: ALIE ALMEIDA PA-C HPI narrative: 49 year old male with pmhx significant for schizophrenia presents to the ED today for evaluation of bone pain x 3 months. Endorses pain to his bilateral forearms, anterior aspects of his bilateral thighs, bilateral calf pain, pain to the dorsal aspects of his feet and skull pain - denies headache. Admits to associated generalized weakness. Denies falls/injuries. Has trialed marijuana, tylenol, and motrin at home without relief. Denies dizziness, vision changes, abdominal pain, N/V/D, constipation, urinary sx, rashes. No known tick/insect bites. He is no longer on a statin. Denies any recent changes to his medication. He is not on steroids. Related Data Previous Rx's ?Medication ?Instructions ?Recorded polyethylene glycol 3350 17 17 g PO DAILY #119 grams 0 08/12/24 gram/dose oral powder (Miralax) Allergies Allergy/AdvReac Type Severity Reaction Status Date / Time clozapine (From CLOZARIL) Allergy Unknown UNK Verified 02/09/25 11:52 Review of Systems 2 Review of Systems: Yes all other systems are reviewed and are negative PMFSH Past Medical History Attestation statement: The following information was validated with the patient. Source: old records reviewed and nursing notes reviewed Social History Social History Substance Use Type: Marijuana Advance Directives: No Advance Directives Information Provided: No Do you have a plan to hurt others: No Plan Physical Exam ED Vital Signs: Vital Signs - 24 hr 02/09/25 11:48 02/09/25 12:28 02/09/25 15:05 Temperature 97.8 F 97.9 F 98.1 F Pulse Rate 76 73 70 Respiratory Rate 18 16 16 Blood Pressure 138/87 109/82 105/78 Pulse Oximetry 98 96 98 Oxygen Delivery Method Room Air Room Air Room Air BMI result Body Mass Index 38.4 Vital signs stable General: Well appearing, in no acute distress. Skin: Warm, dry, intact. No rashes or lesions. Head: Normocephalic, atraumatic. EENT: Hearing is intact b/l. Conjunctiva clear. PERRLA. EOM intact. Moist mucous membranes.? Neck: Supple without LAD Cardiac: Chest wall symmetric. RRR Lungs: Normal respiratory effort without accessory muscle use. CTA bilaterally Abdomen: Soft, non-tender, non-distended. No rebound tenderness or guarding. Positive BS x4. Back: No midline spinous or paraspinal tenderness. No step off deformity. Ext: Upper and lower extremities atraumatic, without tenderness, deformity, swelling or erythema Neuro: AOx3. Normal speech. Strength 5/5 intact throughout. Ambulating with steady gait. Course Course Course Narrative: Labs with slight leukocytosis to 11.3 without left shift. No anemia, H&H stable. Chemistry without acute electrolyte abnormality requiring intervention. ck wnl. urine without infection. viral swabs negative. cxr unremarkale. lumbar xr unremarkable. > patient declining tick/lyme testing at this time. states he would like to be discharged home. i feel this is reasonable. Patient has remained stable throughout ED visit today. Discussed worrisome signs and symptoms and when to return to the ED. All questions answered at this time. Patient is agreeable with disposition and stable for discharge. Medications Administered Discontinued Medications Generic Name Dose Route Start Last Admin Trade Name Freq PRN Reason Stop Dose Admin Ketorolac Tromethamine 30 mg 02/09/25 12:36 02/09/25 12:41 Ketorolac Tromethamine 30 Mg/Ml Vial IM 02/09/25 12:37 30 mg ONCE ONE Administration Medical Decision Making Medical Decision Making [facility] Narrative: 49 year old male with pmhx significant for schizophrenia presents to the ED today for evaluation of bone pain x 3 months. Differential diagnosis includes anemia, electrolyte abnormality, dehydration, rhabdomyolysis, physical deconditioning, failure to thrive, arthritis, rheumatoid arthritis, Lyme arthritis, UTI, chronic back pain, lumbar radiculopathy, sciatica, viral syndrome, pneumonia Plan for labs, imaging Patient declining lyme/tick testing. Differential Diagnosis Differential Diagnoses: The differential diagnosis associated with the presentation includes as above. Admission/Observation not indicated. Lab Data [facility] Lab Attestation statement: I reviewed the patient's lab results. as above. 02/09/25 12:02 02/09/25 12:02 Labs: Lab Results 02/09/25 02/09/25 Range/Units 12:02 12:27 WBC 11.3 H (4.8-10.8) X10*3/uL RBC 5.33 (4.60-5.80) X10*6/uL Hgb 16.1 (14.0-18.0) g/dl Hct 47.6 (42.0-52.0) % MCV 89.3 (80.0-98.0) fL MCH 30.2 (27.0-33.0) pg MCHC 33.8 (31.0-36.0) g/dl RDW 13.0 (11.0-16.0) % Plt Count 381 (160-400) X10*3/uL MPV 9.1 L (9.4-12.4) fL Immature Gran % (Auto) 0.2 (0.0-0.4) % Neut % (Auto) 67.0 (45-73) % Lymph % (Auto) 26.0 (20-40) % [place] % (Auto) 5.5 (2-11) % Eos % (Auto) 0.6 (0-4) % Baso % (Auto) 0.7 (0-2) % Lymph # (Auto) 2.9 (1.2-4.9) X10*3/uL [place] # (Auto) 0.6 (0.1-1.2) X10*3/uL Eos # (Auto) 0.1 (0.0-0.4) X10*3/uL Baso # (Auto) 0.1 (0.0-0.2) X10*3/uL Abs Immat Gran (auto) 0.02 (0.00-0.03) X10*3/uL Absolute Neuts (auto) 7.5 (2.0-8.3) x10*3/uL Absolute Nucleated RBC 0.000 (0.0-0.012) X10*3/uL Nucleated RBC % (auto) 0.0 (0.0-0.2) /100WBC Sodium 139 (135-145) mmol/L Potassium 4.1 (3.3-5.1) mmol/L Chloride 106 (96-108) mmol/L Carbon Dioxide 25 (22-29) mmol/L Anion Gap 12 (12-20) BUN 13 (9-16) mg/dL Creatinine 0.89 (0.5-1.4) mg/dL Estim Creat Clear Calc 127.2 Estimated GFR > 60 Random Glucose 96 (60-115) mg/dL Calcium 9.1 (8.4-10.2) mg/dL Total Creatine Kinase 54 (38-174) U/L Urine Color Yellow Urine Appearance Clear Urine pH 7.0 (5.0-9.0) Ur Specific [place] 1.020 (1.005-1.025) Urine Protein Negative (Neg-Trace) mg/dL Urine Glucose (UA) Negative (Negative) mg/dL Urine Ketones Trace (Negative) mg/dL Urine Blood Negative (Negative) Urine Nitrite Negative (Negative) Ur Leukocyte Esterase Trace H (Negative) Urine RBC 0-2 (0-2) /HPF Urine WBC 0-5 (0-5) /HPF Ur Squamous Epith Cells 0-2 (0-2) /HPF Urine Bacteria None Seen (None Seen) Hyaline Casts 0-2 (0-2) /LPF COVID-19 (JACKSON) Negative (Negative) COVID-19 Clin Com See Note Influenza Type A (NICOLASA) Negative (Negative) Influenza Type B (NICOLASA) Negative (Negative) Influenza A & B Note See Note Independent Interpretation I performed an independent interpretation of an: Plain X-Ray Interpretation: chest xray without infiltrate or consolidation xr lumbar spine without fracture Radiology Impression Discussion of test interpretation with radiology: I have reviewed the radiologist's reading. Radiologist Impression: Procedure(s): XR lumbar spine 2-3V Accession Number(s): [id number] cc: Nata Ferrer MD; Alie Almeida~ Reason for Exam: b/l LE pain CLINICAL HISTORY: b l LE pain 3 views lumbar spine Comparison: 02/24/2022 Findings: No fractures or dislocations. Normal vertebral body alignment. Intervertebral disc heights are well-maintained. There is very slight anterior vertebral body spurring at L4-5. There appears to be mild facet arthropathy L5-S1.. Impression: 1. Minimal lumbar degenerative changes as described above. This document has been electronically signed by: Elder Copeland MD on 02/09/2025 16:44:33 Procedure(s): XR chest 2V Accession Number(s): [id number] cc: Nata Ferrer MD; Alie Almeida~ Reason for Exam: weakness CLINICAL HISTORY: weakness 2 view chest x-ray. Comparison: 07/22/2024 Findings: No consolidation or effusion. Cardiac and mediastinal contours are stable. Bones reveal stable remote anterior right 5th and 6th rib fractures.. Impression: 1. No acute pulmonary disease. This document has been electronically signed by: Elder Copeland MD on 02/09/2025 14:15:01 Independent Historian Clinical information obtained from an independent historian. History obtained from or confirmed by: EMS External Record Review External record reviewed: Inpatient record Prescription Management I considered prescription management with: Pain Medication Social Determinants Patient?s care significantly limited by Social Determinants of Health including: Other Social Determinant of Health Critical Care Time Critical Care Time Critical Care Time: No Discharge Plan Discharge Clinical Impression: Myalgia Patient Disposition: Home, Self-Care Instructions: Musculoskeletal Pain (ED) Additional Instructions: Your workup today is reassuring. You are declining tick/Lyme testing at this time. You may take Tylenol/Motrin at home. Continue all home meds as prescribed. Return with any new or worsening symptoms. In the case of an emergency call 911. Prescriptions: No Action polyethylene glycol 3350 [Miralax] 17 gram/dose powder 17 g PO DAILY Qty: 119 0RF Referrals: Nata Ferrer MD [Primary Care Provider, Medical] Interventions: ED Discharge Assessment Last Done: 02/09/25 18:19 Discharge Date/Time: 02/09/25 18:20 Print Language: Tuvaluan
[2025-02-09 12:06] LABS: MANUAL DIFF FLAG NO
[2025-02-09 12:07] LABS: Hematocrit 47.6 % (42.0-52.0); Hemoglobin 16.1 g/dl (14.0-18.0); Imm Gran Abs Auto 0.02 X10*3/uL (0.00-0.03); Imm Gran Pct Auto 0.2 % (0.0-0.4); Lymphocytes Absolute Auto 2.9 X10*3/uL (1.2-4.9); Mean Corpuscular HGB Conc 33.8 g/dl (31.0-36.0); Mean Corpuscular Hemoglobin 30.2 pg (27.0-33.0); Mean Corpuscular Volume 89.3 fL (80.0-98.0); NRBC Abs Auto 0.000 X10*3/uL (0.0-0.012); NRBC Pct Auto 0.0 /100WBC (0.0-0.2); Platelet Count 381 X10*3/uL (160-400); Red Blood Count 5.33 X10*6/uL (4.60-5.80); White Blood Count 11.3 X10*3/uL (4.8-10.8)
[2025-02-09 12:21] LABS: Anion Gap 12 (12-20); Blood Urea Nitrogen 13 mg/dL (9-16); Calcium 9.1 mg/dL (8.4-10.2); Carbon Dioxide 25 mmol/L (22-29); Chloride 106 mmol/L (96-108); Creatinine Clr Calc Pharmacy 127.2; Estimated Glomerular Filt Rate > 60; Potassium 4.1 mmol/L (3.3-5.1); Sodium 139 mmol/L (135-145)
[2025-02-09 12:28] VITALS: BP 109/82; PULSE 73; RESP 16; TEMP 36.6; O2SAT 96
--- OUTSIDE RECORDS SUMMARY | 2025-02-09 12:44 | XMS_ITS | Clinical Summary ---
Author Organization [facility] Address [address] [place] [phone] Phone Care Team Providers Care Automatic Line Set Up Mechanic Name Role Phone Nata Ferrer MD Primary Care Provider [phone] Allergies Active Allergy Reactions Criticality Noted Date [...] mouth 3 (three) times a day. Active Social History Tobacco Use Types Packs/Day Years [...] Health Maintenance Due Date Last Done Comments Colorectal Cancer Screening: Colonoscopy 1975 DTaP,Tdap,and Td Vaccines (1 - Tdap) 10/11/1994 Hepatitis A Vaccines (1 of 2 - Risk 2-dose series) 10/11/1994 Hepatitis B Vaccines (1 of 3 - 19+ 3-dose series) 10/11/1994 Hepatitis C Screening 03/17/2022 Medicare Annual Wellness Visit 03/17/2022 Social Influencers of Health Screening 03/17/2022 Depression Screening 04/18/2024 COVID-19 Vaccine (4 - 2025-2 6 season) 2024 04/16/2021, 06/25/2020, 06/04/2020 Influenza Vaccine (#1) 2024 Cholesterol Screening (Lipid Panel) 11/17/2028 11/18/2023 RSV Immunization Adult Patients (1 - 1-dose 75+ series) 10/11/2050 HIV [...] on patient's age to complete this topic Insurance MEDICARE MEDICAID - [place] Advance Directives Documents on File Type Date Recorded Patient Futures Trader Expl anation Health Care Decision (hx) 11/29/2019 AD KENNEY DIRECTIVE Health Care Decision (hx) 11/19/2019 AD KENNEY DIRECTIVE Care Teams Automatic Line Set Up Mechanic Relationship Specialty Start Date End Date Nata Ferrer MD [address] [place] [phone] PCP - General Internal Medicine 08/28/24
--- OUTSIDE RECORDS SUMMARY | 2025-02-09 12:44 | XMS_ITS | Encounter Summary ---
Author Organization [employer] Address [address] [facility] 7t [place] [address] Care Team Providers Care Drill Operator Name Role Phone Nata Ferrer MD Primary Care Provider [phone] Reason for Visit * Reason Comments Med Refill Encounter Details Date Type Department Care Team ([facility] Contact Info) Description 11/04/2024 Refill [facility] MED & PEDS [address] [place] [address] Nata Ferrer MD [address] [place] [address] Other chronic back pain Social History Tobacco [...] documented as of this encounter Care Teams Drill Operator Relationship Specialty Start Date End Date Nata Ferrer MD [address] [place] [address] PCP - General Internal Medicine 02/07/19 documented as of this encounter
--- OUTSIDE RECORDS SUMMARY | 2025-02-09 12:44 | XMS_ITS | Encounter Summary ---
Author Organization [employer] Address 75 [facility] 7t [place] [address] Care Team Providers Care Drupal Architect Name Role Phone Nata Ferrer MD Primary Care Provider [phone] Reason for Visit * Reason Comments Med Refill Encounter Details Date Type Department Care Team ([facility] Contact Info) Description 06/21/2023 Refill [facility] MED & PEDS [address] [place] [address] Nata Ferrer MD [address] [place] [address] Muscle spasm; Other chronic pain Social History [...] documented as of this encounter Care Teams Drupal Architect Relationship Specialty Start Date End Date Nata Ferrer MD [address] [place] [phone] PCP - General Internal Medicine 02/07/19 documented as of this encounter
--- OUTSIDE RECORDS SUMMARY | 2025-02-09 12:44 | XMS_ITS | Encounter Summary ---
Author Organization [employer] Address [address] [facility] [address] [place] [address] Care Team Providers Care Clip Riveter Name Role Phone Nata Ferrer MD Primary Care Provider [phone] Reason for Visit * Reason Comments Med Refill Encounter Details Date Type Department Care Team ([facility] Contact Info) Description 08/19/2024 Refill [facility] MED & PEDS [address] [place] [address] Ema Ponce MD [address] [place] [address] Social History Tobacco Use Types Packs/Day Years [...] documented as of this encounter Care Teams Clip Riveter Relationship Specialty Start Date End Date Nata Ferrer MD [address] [place] [address] PCP - General Internal Medicine 02/07/19 documented as of this encounter
--- OUTSIDE RECORDS SUMMARY | 2025-02-09 12:44 | XMS_ITS | Encounter Summary ---
Author Organization [employer] Address [address] [facility] 7 [place] [address] Care Team Providers Care Nutrition Services Manager Name Role Phone Nata Ferrer MD Primary Care Provider +- [phone] Reason for Visit * Reason Onset Date Comments Medication Question 04/06/2023 Encounter Details Date Type Department Care Team ([facility] st Contact Info) Description 04/06/2023 Telephone [facility] MEDICINE [address] [place] [address] Nata Ferrer MD [address] [place], [place] [phone] Medication Question Social History Tobacco Use Types [...] t he electric, gas, oil or water [employer] threatened to shut off services in your [...] Miscellaneous Notes * Telephone Encounter - Bg Cavlillo - 04/06/2023 3:03 PM EST Tc from Rachel the RN at the [facility] calling to request a order for to [...] documented as of this encounter Care Teams Nutrition Services Manager Relationship Specialty Start Date End Date Nata Ferrer MD [address] [place] [address] PCP - General Internal Medicine 02/07/19 documented as of this encounter
--- OUTSIDE RECORDS SUMMARY | 2025-02-09 12:44 | XMS_ITS | Encounter Summary ---
Author Organization [employer] Address [address] [facility] [address] [place] [address] Care Team Providers Care Disassembler Product Name Role Phone Nata Ferrer MD Primary Care Provider [phone] Encounter Details Date Type Department Care Team ([facility] st Contact Info) Description 04/12/2023 Orders Only [facility] MED & PEDS [address] [place] [address] Nata Ferrer MD [address] [place] [address] Other chronic pain Social History Tobacco Use [...] documented as of this encounter Care Teams Disassembler Product Relationship Specialty Start Date End Date Nata Ferrer MD [address] [place] [address] PCP - General Internal Medicine 02/07/19 documented as of this encounter
--- OUTSIDE RECORDS SUMMARY | 2025-02-09 12:44 | XMS_ITS | Clinical Summary ---
Author Organization [employer] Address [address] [place] [address] Care Team Providers Care Transformer Maker Name Role Phone Nata Ferrer MD Primary Care Provider [phone]- [phone] Allergies No known active allergies Medications clonazePAM [...] or as directed by MD. 30 patch 11/05/19 23 Active cholecalcifero l (Vitamin D-3) 50 MCG (1999) capsuleIndicat ions:Vitamin D deficiency Take 1 capsule (50 mcg) by mouth Once per day. 30 capsule 11 11/21/19 24 Active atorvastatin (Lipitor) 20 MG tabletIndicati ons:Vitamin D deficiency Take 1 tablet (20 mg) by mouth Once per day. 30 tablet 11 11/21/19 24 Active tiZANidine (Zanaflex) 4 MG tabletIndicati ons:Other chronic back pain,Muscle spasm TAKE 1 TABLET (4 MG) BY MOUTH EVERY 8 HOURS IF NEEDED FOR MUSCLE SPASMS 30 tablet 2 10/25/19 25 Active diclofenac (Cataflam) 50 MG tabletIndicati ons:Other chronic back pain TAKE 1 TABLET BY MOUTH 3 TIMES DAILY 90 tablet 2 11/13/19 25 Active Acetaminophen Extra Strength 500 MG tabletIndicati ons:Other chronic back pain,Other chronic pain TAKE 2 TABLETS BY MOUTH TWICE A DAY 120 tablet 1 01/01/20 25 Active ergocalciferol (Vitamin D2) 1.25 MG (97411 UT) capsuleIndicat ions:Vitamin D deficiency 1 capsule once a week for 8 weeks 8 capsule 01/01/20 25 Active b complex vitamins capsuleIndicat ions:Myalgia Take 1 capsule by mouth Once per day. 30 capsule 11 01/01/20 25 026 Active lidocaine (Lidoderm) 5 % patchIndicatio ns:Other chronic back pain,Other chronic pain APPLY 1 PATCH TOPICALLY ONCE PER DAY. REMOVE & DISCARD PATCH WITHIN 12 HOURS OR DIRECTED BY MD 30 patch 1 02/01/20 25 Active lidocaine (Lidoderm) 5 % patchIndicatio ns:Other chronic back pain,Other chronic pain APPLY 1 PATCH TOPICALLY ONCE PER DAY. REMOVE & DISCARD PATCH WITHIN 12 HOURS OR DIRECTED BY . 30 patch 1 12/08/19 25 025 Discontinued Active Problems Problem Noted Date Diagnosed Date Abnormal liver function tests 05/19/2021 High thyroid stimulating hormone (TSH) level 04/2021 Hypertriglyceridemia 05/19/2021 Vitamin D deficiency 05/19/2021 Viral hepatitis C 02/08/2019 Encounters Date Type Department Care Team Description 01/30/2025 Refill [facility] [address] [place] [address] Nata Ferrer MD Other chronic back pain; Other chronic pain 01/28/2025 Refill [facility] [address] [place] [address] Nata Ferrer MD Other chronic back pain 01/03/2025 Results Follow-Up [facility] [address] [place] [address] Bernice Figueroa RN Hepatitis C Viral RNA, Quantitative, Real-Time PCR 01/03/[address] [address] Erika Mosley RN refused Hep C tx 01/02/[address] [address] Nata Ferrer MD Call back request 01/01/2025 Results Follow-Up [facility] [address] [place] [address] Bernice Figureoa RN CBC auto differential, Comprehensive Metabolic Panel, Lipid Panel, Standard, Additional followed-up results: 4 12/31/2024 9:30 AM EDT Office Visit [facility] [address] [place] [address] Nata Ferrer MD High thyroid stimulating hormone (TSH) level (Primary Dx); Hypertriglyceridemia; Chronic hepatitis C without hepatic coma (CMS/HCC); Vitamin D deficiency; Screen for STD (sexually transmitted disease); Annual physical exam; Bilateral impacted cerumen; Dental decay; Pruritic intertrigo 12/31/2024 Orders Only [facility] [address] [place] [address] Nata Ferrer MD Vitamin D deficiency (Primary Dx); Myalgia; Chronic hepatitis C without hepatic coma (CMS/HCC) 12/31/2024 Travel 12/29/2024 Refill [facility] [address] [place] [address] Nata Ferrer MD Other chronic back pain; Other chronic pain 12/28/2024 Telephone [facility] [address] [place] [address] Nata Ferrer MD Chart Prep 12/07/2024 Refill [facility] [address] [place] [address] Nata Ferrer MD Other chronic back pain; Other chronic pain 11/12/2024 Telephone [facility] [address] [place] [address] Nata Ferrer MD Med Refill 11/10/2024 Refill [facility] [address] [place] [address] Nata Ferrer MD Other chronic back pain 11/09/2024 1:40 PM EDT Office Visit [facility] [address] [place] [address] Tran Kirkpatrick MD Myalgia (Primary Dx) 11/09/2024 Travel from Last 3 Months Immunizations Immunization Administration [...] - Risk 2-dose series) 10/11/1994 COVID-19 Vaccine ( season) 2024 04/16/2021, 06/25/2020, 06/04/2020 Influenza Vaccine (#1) 2024 Depression Monitoring 06/30/2025 12/31/2024, 025 Zoster Vaccines (1 of 2) 10/11/2025 Alcohol/Substance Use Screening 12/31/2025 12/31/2024 Colorectal Cancer Screening 12/31/2025 Postponed from 1975 (Patient Refused) DTaP/Tdap/Td Vaccines (1 - Tdap) 12/31/2025 Postponed from 10/11/1994 (Patient Refused) Disability Screening 12/31/2025 12/31/2024 Hepatitis B Vaccines (1 of 3 - 19+ 3-dose series) 12/31/2025 Postponed from 10/11/1994 (Patient Refused) SDOH Screening 12/31/2025 12/31/2024 Tobacco Screening 12/31/2025 12/31/2024 Lipid Panel 12/31/2029 12/31/2024, 0805/2023, 01/03/2023, Additional history exists RSV Patients and Patients Aged 60 years or older (1 - 1-dose 75+ series) 10/11/2050 Pneumococcal Vaccine: Pediatrics (0 to 5 Years) and At-Risk Patients (6 to 49) Years Completed 11/18/2023 HIV Screening Completed 12/31/2024, 05/28/2021 HIB Vaccines Aged Out No longer eligi [...] Procedure Name Priority Date/Time Associated Diagnosis Comments URINALYSIS WITH REFLEX MICROSCOPIC Routine 12/31/2024 10:52 AM EDT High thyroid stimulating hormone (TSH) level Hypertriglyceridemi a Chronic hepatitis C without hepatic coma (CMS/HCC) Vitamin D deficiency Screen for STD (sexually transmitted disease) HEPATITIS C VIRAL RNA, QUANTITATIVE, REAL-TIME PCR Routine 12/31/2024 10:45 AM EDT Vitamin D deficiency VITAMIN B12/FOLATE, SERUM PANEL Routine 12/31/2024 10:45 AM EDT High thyroid stimulating hormone (TSH) level Hypertriglyceridemi a Chronic hepatitis C without hepatic coma (CMS/HCC) Vitamin D deficiency Screen for STD (sexually transmitted disease) VITAMIN D,25-OH,TOTAL,IA Routine 12/31/2024 10:45 AM EDT High thyroid stimulating hormone (TSH) level Hypertriglyceridemi a Chronic hepatitis C without hepatic coma (CMS/HCC) Vitamin D deficiency Screen for STD (sexually transmitted disease) RPR (MONITOR) W/REFL TITER Routine 12/31/2024 10:45 AM EDT High thyroid stimulating hormone (TSH) level Hypertriglyceridemi a Chronic hepatitis C without hepatic coma (CMS/HCC) Vitamin D deficiency Screen for STD (sexually transmitted disease) HEPATITIS C AB W/REFL TO HCV RNA, QN, PCR Routine 12/31/2024 10:45 AM EDT High thyroid stimulating hormone (TSH) level Hypertriglyceridemi a Chronic hepatitis C without hepatic coma (CMS/HCC) Vitamin D deficiency Screen for STD (sexually transmitted disease) HIV 1/2 ANTIGEN/ANTIBODY, FOURTH GENERATION W/RFL Routine 12/31/2024 10:45 AM EDT High thyroid stimulating hormone (TSH) level Hypertriglyceridemi a Chronic hepatitis C without hepatic coma (CMS/HCC) Vitamin D deficiency Screen for STD (sexually transmitted disease) TSH W/REFLEX TO FT4 Routine 12/31/2024 1 0:45 AM EDT High thyroid stimulating hormone (TSH) level Hypertriglyceridemi a Chronic hepatitis C without hepatic coma (CMS/HCC) Vitamin D deficiency Screen for STD (sexually transmitted disease) LIPID PANEL, STANDARD Routine 12/31/2024 10:45 AM EDT High thyroid stimulating hormone (TSH) level Hypertriglyceridemi a Chronic hepatitis C without hepatic coma (CMS/HCC) Vitamin D deficiency Screen for STD (sexually transmitted disease) COMPREHENSIVE METABOLIC PANEL Routine 12/31/2024 10:45 AM EDT High thyroid stimulating hormone (TSH) level Hypertriglyceridemi a Chronic hepatitis C without hepatic coma (CMS/HCC) Vitamin D deficiency Screen for STD (sexually transmitted disease) CBC WITH AUTO DIFFERENTIAL Routine 12/31/2024 10:45 AM EDT High thyroid stimulating hormone (TSH) level Hypertriglyceridemi a Chronic hepatitis C without hepatic coma (CMS/HCC) Vitamin D deficiency Screen for STD (sexually transmitted disease) POCT INFLUENZA A (ID NOW RAPID MOLECULAR) Routine 11/09/2024 2:42 PM EDT Myalgia POCT INFLUENZA B (ID NOW RAPID MOLECULAR) Routine 11/09/2024 2:41 PM EDT Myalgia POCT COVID-19 AG RICHARDS ID NOW Routine 11/09/2024 2:40 PM EDT Myalgia from Last 3 Months Results * (ABNORMAL) Urinalysis w/reflex microscopic (12/31/2024 10:52 AM EDT) Color Urine Dark Yellow [facility] Appearance Urine Clear [facility] PH 5.5 5.0 - 9.0 [facility] Glucose Urine UA Negative Negative mg/dL [facility] Urine Blood Negative Negative [facility] Specific Stokes - Urine >=1.030(H) 1.005 - 1.025 [facility] Urine Protein Trace Neg-Trace mg/dL [facility] Urine Ketones Trace Negative mg/dL [facility] Nitrite Urine Negative Negative [facility] Leukocyte Esterase Urine Negative Negative [facility] Urine (Urine, Random) 12/31/2024 10:52 AM EDT 12/31/2024 2:04 PM EDT Narrative [facility] - 12/31/2024 2:21 PM EDT [id number], Clean Catch us Nata Ferrer MD LAB URINE ORDERABLES Final Result [facility] [address] [place] [phone] * (ABNORMAL) Vitamin D, 25-Hydroxy, Total, Immunoassay (12/31/2024 10:45 AM EDT) Vitamin D 25-OH Total 17.8(L) >30 ng/mL [facility] Comment: Health Based Reference Values*< 20 ng/mL [id number] ng/mL Insufficient> 30 ng/mL Sufficient*Ezequiel MORRELL. N Engl J Med. 2007;357:266-280There is no well-established upper level of normal vitamin Dlevels. Some laboratories use 50 ng/mL as an upper limit ofnormal. However, toxicity is patient-dependent and may occurat any level. Careful correlation with the patient'spresentation is necessary and, if there is concern forvitamin D toxicity, treatment should be consideredirrespective of the serum level.Care must be taken in interpreting Vitamin D results fromdifferent laboratories and methodologies. Published datademonstrated that results from patients undergoinghemodialysis may show a negative bias when tested withvarious automated 25-OH vitamin D assays when compared toLC-MS/MS.When testing samples from patients whose predominant form ofVitamin D is Vitamin D2, such as patients receiving VitaminD2 supplementation, results that are subtherapeutic shouldbe confirmed with another method such as LC-MS/MS. Blood Venous blood specimen / Unknown 12/31/2024 10:45 AM EDT 12/31/2024 2:00 PM EDT us Nata Ferrer MD LAB BLOOD ORDERABLES Final Result [facility] [address] [place] [phone] * Vitamin B12/Folate, Serum Panel (12/31/2024 10:45 AM EDT) Vitamin B12 397 200 - 900 pg/mL [facility] Comment:NORMAL 200-900 PG/ML INDETERMINATE 160-199 PG/ML DEFICIENT < 160 PG/ML Folate 4.1 > or = 4.0 ng/mL [facility] Comment:Reference Values:> o r = 4.0 ng/mL< 4.0 ng/mL suggests folate deficiency Methotrexate, aminopterin and folinic acid(leucovorin) are chemotherapeutic agents whose molecularstructures are similar to folate; therefore, the Architectfolate assay cannot be used for patients using these drugs. Blood Venous blood specimen / Unknown 12/31/2024 10:45 AM EDT 12/31/2024 2:00 PM EDT Nata Ferrer MD LAB BLOOD ORDERABLES Final Result Performing Organization Address [facility]/ZIP Co de Phone Number [facility] [address] [place] [phone] * TSH with Reflex to Free T4 (12/31/2024 10:45 AM EDT) TSH reflex Free T4 3.06 0.32 - 4.0 uIU/mL [facility] Blood Venous blood specimen / Unknown 12/31/2024 10:45 AM EDT 12/31/2024 2:00 PM EDT Nata Ferrer MD LAB BLOOD ORDERABLES Final Result Performing Organization Address [facility] Co de Phone Number [facility] [address] [place] [phone] * (ABNORMAL) Hepatitis C Viral RNA, Quantitative, Real-Time PCR (12/31/2024 10:45 AM EDT) Pathologist [facility] Hepatitis C Viral Load 447910(A) NOT DETECTED IU/mL [facility] HCV Log PCR 5.75(A) NOT DETECTED Log IU/mL [facility] Comment:For additional infor mation, please refer [email or web address].Qoniac/faq/[email or web address](This link is being provided for informational/educational purposes only.)THIS TEST WAS PERFORMED AT:[employer] [place] [id number] HARDIN MD 12/31/2024 10:4 5 AM EDT 01/01/2025 11:36 AM EDT Nata Ferrer MD LAB BLOOD ORDERABLES Final Result [facility] [address] [place], [place] [phone] * (ABNORMAL) CBC auto differential (12/31/2024 10:45 AM EDT) White Blood Count 13.0(H) 4.8 - 10.8 X10*3/uL [facility] Red Blood Count 5.45 4.60 - 5.80 X10*6/uL [facility] Hemoglobin 16.9 14.0 - 18.0 g/dl [facility] Hematocrit 49.7 42.0 - 52.0 % [facility] Mean Corpuscular Volume 91.2 80.0 - 98.0 fL [facility] Mean Corpuscular Hemoglobin 31.0 27.0 - 33.0 pg [facility] Mean Corpuscular HGB Conc 34.0 31.0 - 36.0 g/dl [facility] Red Cell Distribution Width 13.4 11.0 - 16.0 % [facility] Platelet Count 316 160 - 400 X10*3/uL [facility] Mean Platelet Volume 10.0 9.4 - 12.4 fL [facility] Neutrophils Percent Auto 70.2 45 - 73 % [facility] Imm Gran Pct Auto 0.5(H) 0.0 - 0.4 % [facility] Lymphocytes Percent Auto 21.9 20 - 40 % [facility] Monocytes Percent Auto 6.0 2 - 11 % [facility] Eosinophils Percent Auto 0.6 0 - 4 % [facility] Basophils Percent Auto 0.8 0 - 2 % [facility] NRBC Pct Auto 0.0 0.0 - 0.2 /100WBC [facility] Neutrophils Absolute Auto 9.1(H) 2.0 - 8.3 x10*3/uL [facility] Imm Gran Abs Auto 0.07(H) 0.00 - 0.03 X10*3/uL [facility] Lymphocytes Absolute Auto 2.8 1.2 - 4.9 X10*3/uL [facility] Monocytes Absolute Auto 0.8 0.1 - 1.2 X10*3/uL [facility] Eosinophils Absolute Auto 0.1 0.0 - 0.4 X10*3/uL [facility] Basophils Absolute Auto 0.1 0.0 - 0.2 X10*3/uL [facility] NRBC Abs Auto 0.000 0.0 - 0.012 X10*3/uL [facility] Blood Venous blood specimen / Unknown 12/31/2024 10:45 AM EDT 12/31/2024 2:00 PM EDT Nata Ferrer MD LAB BLOOD ORDERABLES Final Result Performing Organization Address [facility] Co de Phone Number [facility] [address] [place] [phone] * (ABNORMAL) Hepatitis C Antibody with Reflex to HCV, RNA, Quantitative, Real- Time PCR (12/31/2024 10:45 AM EDT) Pathologist [facility] Hepatitis C Antibody Reactive( A) Nonreactive [facility] Comment:Presumptive evidence of antibodies to HCV. Blood Venous blood specimen / Unknown 12/31/2024 10:45 AM EDT 12/31/2024 2:00 PM EDT us Nata Ferrer MD LAB BLOOD ORDERABLES Final Result Performing Organization Address [facility] Co de Phone Number [facility] [address] [place] [phone] * RPR (Monitor) with Reflex to??Titer (12/31/2024 10:45 AM EDT) RPR (Monitor) w/Refl Titer NON-REACTI VE NON-REACT DEEPIKA [facility] Comment:THIS TEST WAS PERFOR MED AT:[employer] [place] [id number] HARDIN MD Rapid Plasma Reagin Ab Titer TNP [facility] Blood Venous blood specimen / Unknown 12/31/2024 10:45 AM EDT 12/31/2024 2:00 PM EDT us Nata Ferrer MD LAB BLOOD ORDERABLES Final Result Performing Organization Address [facility]/ZIP Co de Phone Number [facility] [address] [place] [phone] * HIV-1/2 Antigen and Antibodies, Fourth Generation, with Reflexes (12/31/2024 10:45 AM EDT) HIV AB/AG Nonreactive Nonreactive [facility] Comment:HIV-1 p24 Ag and/or HIV-1/HIV-2 Ab not detected.A test result that is nonreactive does not exclude thepossibility of exposure to or infection with HIV-1 and/orHIV-2. Nonreactive results in this assay for individualswith prior exposure to HIV-1 and/or HIV-2 may be due toantigen and antibody levels that are below the limit ofdetection of this assay.The [employer] HIV Ag/Ab Combo assay result andsupplemental assay results should be interpreted inconjunction with the patient's clinical presentation,history and other laboratory results. If the results areinconsistent with clinical evidence, additional testing issuggested to confirm the result. Blood Venous blood specimen / Unknown 12/31/2024 10:45 AM EDT 12/31/2024 2:00 PM EDT us Nata Ferrer MD LAB BLOOD ORDERABLES Final Result Performing Organization Address [facility]/ZIP Co de Phone Number [facility] [address] [place] [phone] * (ABNORMAL) Lipid Panel, Standard (12/31/2024 10:45 AM EDT) Triglycerides 190(H) <150 mg/dL [facility] Comment:Desirable Triglyceri de: less than 150 mg/dLBorderline High Triglyceride 150-199 mg/dLHigh Triglyceride: 200-499 mg/dLVery High Triglyceride: greater than or equal to 5OO mg/dL Cholesterol 209(H) <200 mg/dL [facility] Comment:Desirable Cholestero l: less than 200 mg/dLBorderline High Cholesterol: 200-239 mg/dLHigh Cholesterol: greater than 239 mg/dL LDL Cholesterol Calculated 139(H) <100 mg/dL [facility] Comment:Desirable LDL: less than 100 mg/dLNear Optimal/Above Optimal LDL: 110- 129 mg/dLBorderline High LDL: 130-159 mg/dLHigh LDL: 160-189 mg/dLVery High LDL: greater than or equal to 190 mg/dL HDL Cholesterol 32(L) >40 mg/dL [facility] Comment:Desirable HDL: great er than 40 mg/dL Note: This HDL assay may give artificially low results in patients with liver disease. Blood Venous blood specimen / Unknown 12/31/2024 10:45 AM EDT 12/31/2024 2:00 PM EDT us Nata Ferrer MD LAB BLOOD ORDERABLES Final Result [facility] [address] [place] [phone] * (ABNORMAL) Comprehensive Metabolic Panel (12/31/2024 10:45 AM EDT) Sodium 140 135 - 145 mmol/L [facility] Potassium 4.0 3.3 - 5.1 mmol/L [facility] Chloride 108 96 - 108 mmol/L [facility] Carbon Dioxide 24 22 - 29 mmol/L [facility] Anion Gap 12 12 - 20 [facility] Urea Nitrogen (BUN) 17(H) 9 - 16 mg/dL [facility] Creatinine, Serum 0.97 0.5 - 1.4 mg/dL [facility] Estimated Glomerular Filt Rate >60 [facility] Comment:Chronic Kidney Disea se: Estimated GFR < 60 mL/min/1.73i2Twdxzn Kidney Disease: Estimated GFR < 15 mL/min/1.73m2 Glucose 96 60 - 115 mg/dL [facility] Calcium 9.4 8.4 - 10.2 mg/dL [facility] Bilirubin, Total 0.4 0.0 - 1.0 mg/dL [facility] Aspartate Amino Transferase 25 5 - 37 U/L [facility] Alanine Aminotransferase 26 0 - 40 U/L [facility] Total Protein 7.2 6.5 - 8.0 g/dL [facility] Albumin Level 4.4 3.5 - 5.0 g/dL [facility] Alkaline Phosphatase 72 39 - 117 U/L [facility] Blood Venous blood specimen / Unknown 12/31/2024 10:45 AM EDT 12/31/2024 2:00 PM EDT Nata Ferrer MD LAB BLOOD ORDERABLES Final Result Performing Organization Address City/[facility]/ZIP Co de Phone Number [facility] [address] [place] [phone] * Influenza A (ID NOW Rapid Molecular) (11/09/2024 2:42 PM EDT) Influenza A Negative Negative, Indeterminate [facility] QC Media Lot # [facility] Comment:[id number] Lot# Expiration Date [facility] Comment:05/18/2026 Swab 11/09/2024 2:42 PM EDT Tran Kirkpatrick MD POINT OF CARE TEST ENTER/BERNA T ORDERABLES Final Result Performing Organization Address [facility] Co de Phone Number [facility] [address] [place] [phone] * Influenza B (ID NOW Rapid Molecular) (11/09/2024 2:41 PM EDT) Influenza B Negative Negative, Indeterminate [facility] QC Media Lot # [facility] Comment:[id number] Lot# Expiration Date [facility] Comment:05/18/2026 Swab 11/09/2024 2:41 PM EDT Tran Kirkpatrick MD POINT OF CARE TEST ENTER/BERNA T ORDERABLES Final Result [facility] [address] [place] [phone] * POCT COVID-19 Ag Richards ID NOW (11/09/2024 2:40 PM EDT) Coronavirus Antigen PCR Negative Negative, Indeterminate, None Detected, Invalid, Specimen unsatisfactory for evaluation, Weakly Positive, 2+ QC Media Lot # Comment:[id number] Lot# Expiration Date Comment:04/11/2025 Swab 11/09/2024 2:40 PM EDT Tran Kirkpatrick MD POINT OF CARE TEST ENTER/BERNA T ORDERABLES Final Result from Last [address] Insurance [place] [address] [place] [phone] [facility] Care Teams Transformer Maker Relationship Specialty Start Date End Date Nata Ferrer MD [address] [place] [address] PCP - General Internal Medicine 02/07/19
--- OUTSIDE RECORDS SUMMARY | 2025-02-09 12:44 | XMS_ITS | Encounter Summary ---
Author Organization [employer] Address [address] [place] [address] [address], [place] [address] Care Team Providers Care Account Strategist Name Role Phone Nata Ferrer MD Primary Care Provider +1- [phone] Reason for Visit * Reason Comments Med Refill Encounter Details Date Type Department Care Team ([facility] Contact Info) Description 11/16/2022 Refill [facility] MED & PEDS 505 [place] [address] Nata Ferrer MD 505 [place] [address] Rib pain on right side Social History [...] documented as of this encounter Care Teams Account Strategist Relationship Specialty Start Date End Date Nata Ferrer MD 505 [place] [address] PCP - General Internal Medicine 02/07/19 documented as of this encounter
--- OUTSIDE RECORDS SUMMARY | 2025-02-09 12:44 | XMS_ITS | Encounter Summary ---
Author Organization [employer] Address [address] [place] [address] 7 [place] [address] Care Team Providers Care Hearing Aid Assistant Name Role Phone Nata Ferrer MD Primary Care Provider +1- [phone] Reason for Visit * Reason Comments Med Refill Encounter Details Date Type Department Care Team ([facility] Contact Info) Description 12/16/2022 Refill [facility] MED & PEDS 505 [place] [address] Nata Ferrer MD 505 [place] [address] Other chronic pain; Rib pain on right [...] documented as of this encounter Care Teams Hearing Aid Assistant Relationship Specialty Start Date End Date Nata Ferrer MD 505 [place] [address] PCP - General Internal Medicine 02/07/19 documented as of this encounter
--- OUTSIDE RECORDS SUMMARY | 2025-02-09 12:44 | XMS_ITS | Encounter Summary ---
Author Organization [employer] Address [address] [place] [address] Care Team Providers Care Media Relations Director Name Role Phone Nata Ferrer MD Primary Care Provider +1- [phone] Reason for Visit * Reason Comments Med Refill celecoxib (CeleBREX) 200 MG capsule Encounter Details Date Type Department Care Team (Late st Contact Info) Description 09/14/2022 Refill [facility] MED & PEDS 505 [place] [address] Nata Ferrer MD 505 [place] [address] Other chronic pain Social History Tobacco Use [...] PM EDT Pt was recently seen at [facility] ED for a fall. Pt was [...] pain documented in this encounter Care Teams Media Relations Director Relationship Specialty Start Date End Date Nata Ferrer MD [address] [place] [address] PCP - General Internal Medicine 02/07/19 documented as of this encounter
--- OUTSIDE RECORDS SUMMARY | 2025-02-09 12:44 | XMS_ITS | Encounter Summary ---
Author Organization [employer] Address [address] [place] [address] 7 [place] [address] Care Team Providers Care Barrel Handler Name Role Phone Nata Ferrer MD Primary Care Provider +1- [phone] Encounter Details Date Type Department Care Team (Latest Contact Info) Description 01/04/2023 Orders Only [facility] MED & PEDS [address] [place] [address] Nata Ferrer MD 505 [place], [place] [phone] Hypertriglyceridemia (Primary Dx) Social History Tobacco Use [...] documented as of this encounter Care Teams Barrel Handler Relationship Specialty Start Date End Date Nata Ferrer MD 505 [place], [place] [phone] PCP - General Internal Medicine 02/07/19 documented as of this encounter
--- OUTSIDE RECORDS SUMMARY | 2025-02-09 12:44 | XMS_ITS | Encounter Summary ---
Author Organization [employer] Address 75 [facility] 7t [place] [address] Care Team Providers Care Credit Historian Name Role Phone Nata Ferrer MD Primary Care Provider [phone] Reason for Visit * Reason Comments Med Refill Encounter Details Date Type Department Care Team ([facility] Contact Info) Description 01/28/2025 Refill [facility] MED & PEDS 505 [place] [address] Nata Ferrer MD 505 [place] [address] Other chronic back pain Social History Tobacco [...] documented as of this encounter Care Teams Credit Historian Relationship Specialty Start Date End Date Nata Ferrer MD 505 [place] [address] PCP - General Internal Medicine 02/07/19 documented as of this encounter
--- OUTSIDE RECORDS SUMMARY | 2025-02-09 12:44 | XMS_ITS | Encounter Summary ---
Author Organization [employer] Address 75 [facility] 7 [place] [address] Care Team Providers Care Ict Analyst Name Role Phone Nata Ferrer MD Primary Care Provider [phone] Reason for Visit * Reason Comments Med Refill Encounter Details Date Type Department Care Team ([facility] Contact Info) Description 10/31/2024 Refill [facility] MED & PEDS 505 [place] [address] Nata Ferrer MD 505 [place] [address] Vitamin D deficiency; Other chronic back pain [...] documented as of this encounter Care Teams Ict Analyst Relationship Specialty Start Date End Date Nata Ferrer MD [address] [place] [address] PCP - General Internal Medicine 02/07/19 documented as of this encounter
--- OUTSIDE RECORDS SUMMARY | 2025-02-09 12:44 | XMS_ITS | Encounter Summary ---
Author Organization [employer] Address 75 [facility] 7 [place] [address] Care Team Providers Care Senior Technical Recruiter Name Role Phone Nata Ferrer MD Primary Care Provider [phone] Reason for Visit * Reason Onset Date Comments requesting 03/30/2022 Encounter Details Date Type Department Care Team ([facility] st Contact Info) Description 03/30/2022 Telephone [facility] MEDICINE [address] [place] [address] Nata Ferrer MD 505 [place] [address] requesting Social History Tobacco Use Types Packs/Day [...] 11:39 AM EST Tc from Karen with [facility] physical therapy. States pt would like in home physical therapy due to nothave transportation Please contact Karen at [phone] documented in this encounter Plan of Treatment Not on file documented as of this encounter Visit Diagnoses Not on filedocumented in this encounter Care Teams Senior Technical Recruiter Relationship Specialty Start Date End Date Nata Ferrer MD [address] [place] [address] PCP - General Internal Medicine 02/07/19 documented as of this encounter
--- OUTSIDE RECORDS SUMMARY | 2025-02-09 12:44 | XMS_ITS | Encounter Summary ---
Author Organization [employer] Address 75 [facility] 7t [place] [address] Care Team Providers Care Asset Administrator Name Role Phone Nata Ferrer MD Primary Care Provider [phone] Encounter Details Date Type Department Care Team ([facility] st Contact Info) Description 08/29/2024 Orders Only [facility] [address] [place] [address] ProviderAilyn MD Social History Tobacco Use Types [...] documented as of this encounter Care Teams Asset Administrator Relationship Specialty Start Date End Date Nata Ferrer MD [address] [place] [address] PCP - General Internal Medicine 02/07/19 documented as of this encounter
--- OUTSIDE RECORDS SUMMARY | 2025-02-09 12:44 | XMS_ITS | Encounter Summary ---
Author Organization [employer] Address 75 [facility] 7t [place] [address] Care Team Providers Care File Keeper Name Role Phone Nata Ferrer MD Primary Care Provider [phone] Encounter Details Date Type Department Care Team ([facility] st Contact Info) Description 10/15/2024 Orders Only [facility] [address] [place] [address] ProviderAilyn MD Social History Tobacco Use Types [...] documented as of this encounter Care Teams File Keeper Relationship Specialty Start Date End Date Nata Ferrer MD [address] [place] [address] PCP - General Internal Medicine 02/07/19 documented as of this encounter
--- OUTSIDE RECORDS SUMMARY | 2025-02-09 12:44 | XMS_ITS | Encounter Summary ---
Author Organization [employer] Address 75 [facility] 7t [place] [address] Care Team Providers Care Admissions Coordinator Name Role Phone Nata Ferrer MD Primary Care Provider +1- [phone] Encounter Details Date Type Department Care Team (Late st Contact Info) Description 07/21/2022 Orders Only [facility] MED & PEDS 505 [place], [place] [phone] Nata Ferrer MD 505 [place] [address] Other chronic pain Social History Tobacco Use [...] EDT) Sodium 138 135 - 145 mmol/L [facility] Potassium 3.9 3.3 - 5.1 mmol/L [facility] Chloride 107 96 - 108 mmol/L [facility] Carbon Dioxide 23 22 - 29 mmol/L [facility] Anion Gap 12 12 - 20 [facility] Urea Nitrogen (BUN) 14 9 - 16 mg/dL [facility] Creatinine, Serum 0.88 0.5 - 1.4 mg/dL [facility] Estimated Glomerular Filt Rate >60 [facility] Comment:NOTE: For -Am erican individuals, multiply the result by 1.210.Chronic Kidney Disease: Estimated GFR < 60 mL/min/1.37k7Mblsbi Kidney Disease: Estimated GFR < 15 mL/min/1.73m2 Glucose Fasting 89 60 - 99 mg/dL [facility] Calcium 9.7 8.4 - 10.2 mg/dL [facility] 01/03/2023 8:42 AM EDT 01/03/2023 2:10 PM EDT Nata Ferrer MD LAB BLOOD ORDERABLES Final Result Performing Organization Address City/State/[facility] Co de Phone Number [facility] [address] [place] [address] [phone] documented in this encounter Visit Diagnoses Diagnosis Other chronic pain documented in this encounter Care Teams Admissions Coordinator Relationship Specialty Start Date End Date Nata Ferrer MD 505 [place] [address] PCP - General Internal Medicine 02/07/19 documented as of this encounter
--- OUTSIDE RECORDS SUMMARY | 2025-02-09 12:44 | XMS_ITS | Encounter Summary ---
Author Organization [employer] Address 75 [facility] 7 [place] [address] Care Team Providers Care Bird Keeper Name Role Phone Nata Ferrer MD Primary Care Provider +- [phone] Reason for Visit * Reason Onset Date Comments Same day care 06/15/23 06/15/2023 Encounter Details Date Type Department Care Team ([facility] st Contact Info) Description 06/15/2023 Telephone [facility] MEDICINE [address] [place] [address] Nata Ferrer MD [address] [place], [place] [phone] Same day care 06/15/23 Social History Tobacco [...] documented as of this encounter Care Teams Bird Keeper Relationship Specialty Start Date End Date Nata Ferrer MD [address] [place] [address] PCP - General Internal Medicine 02/07/19 documented as of this encounter
--- OUTSIDE RECORDS SUMMARY | 2025-02-09 12:44 | XMS_ITS | Encounter Summary ---
Author Organization [employer] Address [address] [facility] [address] 7t [place] [address] Care Team Providers Care Sandwich Machine Operator Name Role Phone Nata Ferrer MD Primary Care Provider [phone] Encounter Details Date Type Department Care Team (Late st Contact Info) Description 09/11/2024 Orders Only [facility] MED & PEDS [address] [place], [place] [phone] Provider, MD Ailyn Social History Tobacco Use [...] documented as of this encounter Care Teams Sandwich Machine Operator Relationship Specialty Start Date End Date Nata Ferrer MD [address] [place] [address] PCP - General Internal Medicine 02/07/19 documented as of this encounter
--- OUTSIDE RECORDS SUMMARY | 2025-02-09 12:44 | XMS_ITS | Encounter Summary ---
Author Organization [employer] Address [address] [place] [address] Care Team Providers Care Manager Search Engine Name Role Phone Nata Ferrer MD Primary Care Provider [phone] Reason for Referral * Consultation (Routine) - Closed Specialty Diagnoses / Procedures Referred By Contlouann oliver Referred To Contact Family Medicine Diagnoses Chronic hepatitis C without hepatic coma (HCC) Nata Ferrer MD 505 [place] [address] Phone: tel: fax: Referral ID Status Reason Start Date Expiration Date V isits Requested Visits Authorized [id number] Closed Specialty Services Required 01/02/2025 01/02/2026 1 1 Encounter Details Date Type Department Care Team (Late st Contact Info) Description 12/31/2024 Orders Only [facility] MED & PEDS 505 [place] [address] Nata Ferrer MD 505 [place] [address] Vitamin D deficiency (Primary Dx); Myalgia; Chronic hepatitis C without hepatic coma (CMS/HCC) Social History Tobacco Use Types Packs/Day Years [...] 10:40 AM EDT Lauren Victor MA * Trouble falling or staying asleep, or sleeping too much Answer Date of Assessment Author Not at all 12/31/2024 10:40 AM EDT Azul Victor MA * Feeling tired or having little energy Answer Date of Assessment Author Nearly every day 12/31/2024 10:40 AM Lauren Salder MA * Poor appetite or overeating Answer [...] as of this encounter Plan of Treatment Scheduled Referrals Name Type Priority Associated Diagnoses Order Schedule Referral to [facility] Infectious Disease (HIV & Hep C) Outpatient Referral Routine Chronic hepatitis C without hepatic coma (CMS/HCC) Expected: 01/02/2025 (Approximate), Expires: 01/02/2026 documented as of this encounter Procedures Procedure Name Priority Date/Time Associated Diagnosis Comments HEPATITIS C VIRAL RNA, QUANTITATIVE, REAL-TIME PCR Routine 12/31/2024 10:45 AM EDT Vitamin D deficiency documented in this encounter Results * (ABNORMAL) Hepatitis C Viral RNA, Quantitative, Real-Time PCR (12/31/2024 10:45 AM EDT) Hepatitis C Viral Load 549581(A) NOT DETECTED IU/mL [facility] HCV Log PCR 5.75(A) NOT DETECTED Log IU/mL [facility] Comment:For additional infor sadia, please refer tohttp://education.Orthogem/faq/HPO29m5(This link is being provided for informational/educational purposes only.)THIS TEST WAS PERFORMED AT:[employer] [place] [id number] HARDIN MD 12/31/2024 10:4 5 AM EDT 01/01/2025 11:36 AM EDT us Nata Ferrer MD LAB BLOOD ORDERABLES Final Result [facility] [address] [place] [address] [phone] documented in this encounter Visit Diagnoses Diagnosis Vitamin D deficiency- Primary Myalgia Unspecified myalgia and myositis Chronic hepatitis C without hepatic coma (HCC) documented in this encounter Additional Health Concerns Assessment Noted Time PHQ-9 Depression Total Score: 18 025 10:40 AM EDT documented as of this encounter Care Teams Manager Search Engine Relationship Specialty Start Date End Date Nata Ferrer MD [address] [place] [address] PCP - General Internal Medicine 02/07/19 documented as of this encounter
--- OUTSIDE RECORDS SUMMARY | 2025-02-09 12:44 | XMS_ITS | Encounter Summary ---
Author Organization [employer] Address 75 [facility] 7 [place] [address] Care Team Providers Care Material Damage Appraiser Name Role Phone Nata Ferrer MD Primary Care Provider +- [phone] Reason for Visit * Reason Onset Date Comments Nurse Triage 07/11/2024 Encounter Details Date Type Department Care Team (Late st Contact Info) Description 07/11/2024 Telephone [facility] MEDICINE 230 [place] [address] Nata Ferrer MD 505 [place] [address] Nurse Triage Social History Tobacco Use Types [...] Triage call Pt reports living in a [facility]. Pt has been having body pain, especially back and legs. Dizziness has caused Pt to fall at times no injury to body or head. Pt also reports fever at times. Pt reports this has been happening for last 2-3 months. Pt is requesting to see provider at [facility].Pt is taking atorvastatin daily. ASK apt today at 220pm in [facility]. Pt agrees with disposition and [...] worse The caller accepted this outcome. Contact [phone] documented in this encounter Plan of Treatment Not on file documented as of this encounter Visit Diagnoses Not on filedocumented in this encounter Additional Health Concerns Assessment Noted Time PHQ-9 Depression Total Score: 7 11/18/19 24 2:11 PM EDT documented as of this encounter Care Teams Material Damage Appraiser Relationship Specialty Start Date End Date Nata Ferrer MD [address] [place] [address] PCP - General Internal Medicine 02/07/19 documented as of this encounter
--- OUTSIDE RECORDS SUMMARY | 2025-02-09 12:44 | XMS_ITS | Encounter Summary ---
Author Organization [employer] Address 75 [facility] 7t [place] [address] Care Team Providers Care [employer] Solutions Workflow Consultant Name Role Phone Nata Ferrer MD Primary Care Provider [phone] Encounter Details Date Type Department Care Team ([facility] st Contact Info) Description 11/21/2023 Orders Only [facility] MED & PEDS 505 [place] [address] Nata Ferrer MD 505 [place] [address] Vitamin D deficiency (Primary Dx) Social History [...] documented as of this encounter Care Teams [employer] Workflow Consultant Relationship Specialty Start Date End Date Nata Ferrer MD [address] [place] [address] PCP - General Internal Medicine 02/07/19 documented as of this encounter
--- OUTSIDE RECORDS SUMMARY | 2025-02-09 12:44 | XMS_ITS | Encounter Summary ---
Author Organization [employer] Address 75 [facility] 7t [place] [address] Care Team Providers Care Rubber Mill Tender Name Role Phone Nata Ferrer MD Primary Care Provider [phone] Encounter Details Date Type Department Care Team ([facility] st Contact Info) Description 09/12/2024 Orders Only [facility] [address] [place] [address] ProviderAilyn MD Social History Tobacco Use Types [...] documented as of this encounter Care Teams Rubber Mill Tender Relationship Specialty Start Date End Date Ntaa Ferrer MD [address] [place] [address] PCP - General Internal Medicine 02/07/19 documented as of this encounter
--- OUTSIDE RECORDS SUMMARY | 2025-02-09 12:44 | XMS_ITS | Encounter Summary ---
Author Organization [employer] Address [address] [facility] [address] 7[address] [place] [address] Care Team Providers Care Classification Inspector Name Role Phone Nata Ferrer MD Primary Care Provider [phone] Encounter Details Date Type Department Care Team (Late st Contact Info) Description 10/16/2024 Orders Only [facility] MED & PEDS [address] [place], [place] [phone] Provider, MD Ailyn Social History Tobacco Use [...] documented as of this encounter Care Teams Classification Inspector Relationship Specialty Start Date End Date Nata Ferrer MD [address] [place] [address] PCP - General Internal Medicine 02/07/19 documented as of this encounter
[2025-02-09 12:45] LABS: Appearance Urine Clear; Glucose Urine UA Negative (Negative); PH 7.0 (5.0-9.0); Specific Gravity - Urine 1.020 (1.005-1.025); UMIC TRIGGER UACC YES
[2025-02-09 12:55] LABS: COVID-19 Test Negative (Negative); IDNOW Serial# 08D9AD1C; IDNOW Serial# 6674DD1D; Influenza B2 Negative (Negative)
[2025-02-09 15:05] VITALS: BP 105/78; PULSE 70; RESP 16; TEMP 36.7; O2SAT 98
--- NOTE | 2025-02-09 17:26 | PC.NURSE ---
Philip form res program via [facility] at [address] [place] [address]. States patient is safe to sit in waiting room as she calls supervisor finishing room for a ride. philip was reached at [phone]
[2025-02-09 18:19] VITALS: BP 105/78; PULSE 70; RESP 16; TEMP 36.7; O2SAT 98
[2025-02-14 06:08] LABS: A. Phagocytphilium DNA,RT-PCR NOT DETECTED (NOT DETECTED); Babesia Microti DNA, RT-PCR NOT DETECTED (NOT DETECTED); Borrelia Miyamotoi,DNA RT-PCR NOT DETECTED (NOT DETECTED); E.Chaffeensis DNA RT-PCR NOT DETECTED (NOT DETECTED); Lyme(Borrelia ssp)DNA RT-PCR NOT DETECTED (NOT DETECTED)
== END 2025-02-09 18:20 | disposition home or self-care (01) ==
PROVIDERS: Physician Assistant Medical; Emergency Provider Emergency Medicine Emergency Medical Services; PCP Internal Medicine
DX: M79.10 Myalgia, unspecified site (principal); R53.1 Weakness; M79.602 Pain in left arm; M79.601 Pain in right arm; M54.50 Low back pain, unspecified; M79.605 Pain in left leg; M79.604 Pain in right leg; Z03.818 Encounter for observation for suspected exposure to other biological agents ruled out
CPT/HCPCS: 36415; 71046; 72100; 80048; 81001; 82550; 85025; 87468; 87469; 87478; 87484; 87502; 87635; 87798; 96372; 99283; 99284; J1885